=== PATIENT | male | born 1950 | race Caucasian/White ===

== ENCOUNTER 2022-05-23 16:01 | Inpatient (IN) | payer OTHER, MEDICARE ==
[~2022-05-23] VITALS: Ht 365.8 cm; Wt 69.9 kg
[~2022-05-23 16:01] MED LIST: ALBU8.5H17 IH; FLUT1DIS20 INH; LACT1CAP26 PO; TIOT4MIS5 PO
[2022-05-23] MEDS ORDERED: methylPREDNISolone sod succ 125mg/2ml vial IV ONE (16:15)
[2022-05-23 16:28] LABS: BASOPHILS % (AUTO) 0.6 % (0-1); EOSINOPHILS % (AUTO) 0.6 % (0-6); HEMATOCRIT 43.4 % (42.0-52.0); HEMOGLOBIN 14.8 g/dl (14.0-17.9); LYMPHOCYTES # (AUTO) 1.3 X10'3 (1.1-4.8); LYMPHOCYTES % (AUTO) 16.9 % (21-51); MEAN CORPUSCULAR HEMOGLOBIN 30.6 PG (27.0-31.0); MEAN CORPUSCULAR HGB CONC 34.1 g/dL (33.0-36.5); MEAN CORPUSCULAR VOLUME 89.6 FL (78-98); MEAN PLATELET VOLUME 7.2 FL (7.4-10.4); MONOCYTES # (AUTO) 0.7 X10'3 (0-0.9); MONOCYTES % (AUTO) 9.6 % (2-12); NEUTROPHILS # (AUTO) 5.4 X10'3 (1.8-7.7); NEUTROPHILS % (AUTO) 72.3 % (42-75); PLATELET COUNT 253 X10'3 (140-440); RED BLOOD COUNT 4.85 X10'6 (4.70-6.10); RED CELL DISTRIBUTION WIDTH 14.7 % (11.5-14.5); WHITE BLOOD COUNT 7.4 X10'3 (4.5-11.0)
[2022-05-23 16:40] LABS: ALANINE AMINOTRANSFERASE 21 U/L (12-78); ALBUMIN 3.7 G/DL (3.4-5.0); ALBUMIN/GLOBULIN RATIO 0.8 (1.1-1.5); ALKALINE PHOSPHATASE 79 IU/L (46-116); ANION GAP 6 (8-16); ASPARTATE AMINO TRANSFERASE 30 U/L (10-37); BILIRUBIN,TOTAL 0.6 MG/DL (0.1-1.0); BLOOD UREA NITROGEN 10 MG/DL (7-18); BUN/CREATININE RATIO 8.9 (10.0-20.0); CALCIUM 8.9 MG/DL (8.5-10.1); CHLORIDE 100 MMOL/L (99-107); CREATININE 1.12 MG/DL (0.60-1.10); GLUCOSE 113 MG/DL (70-104); POTASSIUM 4.3 MMOL/L (3.5-5.1); SODIUM 133 MMOL/L (135-145); TOTAL CARBON DIOXIDE 26.7 MMOL/L (24-32); TOTAL PROTEIN 8.1 G/DL (6.4-8.2); eGFR 64 ML/MIN
[2022-05-23] MEDS: albuterol 2.5 MG/3 ML nebule CONTNEB PRN ×2 (18:54→19:46)
[2022-05-23] MEDS ORDERED: CefTRIAXone/D5W-Rocephin 1gm 50 ML IV ONE (20:30)
[2022-05-23] MEDS ORDERED: temazepam 15mg capsule PO PRN (21:00)
[2022-05-23] MEDS ORDERED: diphenhydrAMINE 25mg capsule PO PRN (21:10)
[2022-05-23] MEDS ORDERED: morphine 2 MG/ML inj. syringe IV PRN ×2 (21:10)
[2022-05-23] MEDS ORDERED: bisacodyl 10mg suppository rectal RC PRN (21:10)
[2022-05-23] MEDS ORDERED: acetaminophen 325mg tablet PO PRN ×2 (21:10)
[2022-05-23] MEDS ORDERED: ondansetron 4mg rapidly disintigrating tab PO PRN (21:10)
[2022-05-23] MEDS ORDERED: HYDROcodone/acetaminophen 5mg/325mg tablet PO PRN (21:10)
[2022-05-23] MEDS ORDERED: ondansetron/PF 4mg/2ml inj IV PRN (21:10)
[2022-05-23] MEDS ORDERED: HYDROcodone/acetaminophen 10/325mg tab PO PRN (21:10)
[2022-05-23] MEDS ORDERED: magnesium hydroxide 30ml (MOM) UD suspension PO PRN (21:10)
[2022-05-23] MEDS ORDERED: mag hydrox/Alum hydrox/simeth 30ml oral suspension PO PRN (21:10)
[2022-05-23] MEDS ORDERED: acetaminophen 650mg rectal suppository RC PRN (21:10)
[2022-05-23] MEDS ORDERED: diphenhydrAMINE 50 mg/ml inj IV PRN (21:10)
[2022-05-23] MEDS: normal saline 1000ml 1,000 ML IV SCH (21:37)
[2022-05-23 21:38] LABS: HEMOGLOBIN A1C 5.6 % (4.5-6.2)
[2022-05-23 21:41] LABS: CREATINE KINASE 159 U/L (39-308); LIPASE 60 U/L (73-393); MAGNESIUM 2.1 MG/DL (1.5-2.4); PHOSPHORUS 3.1 MG/DL (2.3-4.5)
[2022-05-23 21:55] LABS: APTT 29 SECONDS (22-32)
[2022-05-23 22:33] LABS: D-DIMER 0.61 MG/L FEU (0-0.50)
--- NOTE | 2022-05-23 23:20 | NUR ---
Patient in room [facility]. I have received report from CARRIE Mendez and had the opportunity to ask questions and assume patient care.
--- NOTE | 2022-05-23 23:22 | NUR ---
REPORT CALLED TO RALPH BUTLER TX BY TECH TO RM [id number]
[2022-05-23 23:30] VITALS: BP 105/60
[2022-05-24 06:15] LABS: BASOPHILS % (AUTO) 0.1 % (0-1); EOSINOPHILS % (AUTO) 0 % (0-6); HEMATOCRIT 40.7 % (42.0-52.0); HEMOGLOBIN 13.9 g/dl (14.0-17.9); LYMPHOCYTES # (AUTO) 0.6 X10'3 (1.1-4.8); LYMPHOCYTES % (AUTO) 11.1 % (21-51); MEAN CORPUSCULAR HEMOGLOBIN 30.9 PG (27.0-31.0); MEAN CORPUSCULAR HGB CONC 34.2 g/dL (33.0-36.5); MEAN CORPUSCULAR VOLUME 90.3 FL (78-98); MEAN PLATELET VOLUME 7.4 FL (7.4-10.4); MONOCYTES # (AUTO) 0.1 X10'3 (0-0.9); MONOCYTES % (AUTO) 1.4 % (2-12); NEUTROPHILS % (AUTO) 87.4 % (42-75); PLATELET COUNT 235 X10'3 (140-440); RED BLOOD COUNT 4.51 X10'6 (4.70-6.10); RED CELL DISTRIBUTION WIDTH 14.6 % (11.5-14.5); WHITE BLOOD COUNT 5.7 X10'3 (4.5-11.0)
--- NOTE | 2022-05-24 06:32 | NUR ---
Problems reprioritized. Patient report given, questions answered & plan of care reviewed with Jacque Estrada RN.
[2022-05-24 06:39] LABS: ALANINE AMINOTRANSFERASE 20 U/L (12-78); ALBUMIN 3.2 G/DL (3.4-5.0); ALBUMIN/GLOBULIN RATIO 0.7 (1.1-1.5); ALKALINE PHOSPHATASE 72 IU/L (46-116); ANION GAP 8 (8-16); ASPARTATE AMINO TRANSFERASE 26 U/L (10-37); BILIRUBIN,TOTAL 0.3 MG/DL (0.1-1.0); BLOOD UREA NITROGEN 14 MG/DL (7-18); BUN/CREATININE RATIO 13.3 (10.0-20.0); CHLORIDE 104 MMOL/L (99-107); CHOL/HDL RATIO 2.3 (0.00-4.99); CHOLESTEROL 122 MG/DL (0-200); CREATININE 1.05 MG/DL (0.60-1.10); GLUCOSE 153 MG/DL (70-104); HDL CHOLESTEROL 52 MG/DL (35-60); LDL CHOLESTEROL 58 MG/DL (50-100); POTASSIUM 4.5 MMOL/L (3.5-5.1); SODIUM 138 MMOL/L (135-145); TOTAL PROTEIN 7.5 G/DL (6.4-8.2); TRIGLYCERIDES 37 MG/DL (20-135); eGFR 69 ML/MIN
[2022-05-24] MEDS: docusate sod 100mg capsule PO SCH ×3 (08:00→20:00)
[2022-05-24] MEDS: nicotine 21mg patch - 24 hr TD SCH (09:01)
[2022-05-24] MEDS: pantoprazole 40mg Tablet.DR PO SCH (09:01)
[2022-05-24] MEDS: heparin, porcine 5000 units/ml vial SQ SCH ×2 (09:02→20:05)
[2022-05-24] MEDS: methylPREDNISolone sod succ 125mg/2ml vial IV SCH ×2 (09:03→20:04)
[2022-05-24] MEDS: CefTRIAXone/D5W-Rocephin 1gm 50 ML IV SCH (09:03)
--- NOTE | 2022-05-24 09:20 | NUR ---
page sent to RT : 346B FRANDY E: pt requesting PRN treatment. thanks :) Addendum: 05/24/22 at 0921 by Lori Lux RN Amended: Links added.
[2022-05-24] MEDS: ipratropium/albuterol 3ml nebule NEB PRN ×2 (09:35→20:16)
[2022-05-24] MEDS: azithromycin/NS 500mg/250ml 250 ML IV SCH (10:09)
[2022-05-24 11:49] VITALS: BP 121/65
--- NOTE | 2022-05-24 12:03 | NUR ---
Received order for consult for tobacco. Inappropriate referral. I do not see patients for tobacco use.
[2022-05-24 12:20] VITALS: BP 123/75
[2022-05-24] MEDS: normal saline 1000ml 1,000 ML IV SCH ×2 (12:51→23:50)
--- NOTE | 2022-05-24 16:31 | NUR ---
Page sent to RT: 348B Dennis Cuellar: patient requesting PRN treatment. thank you!
[2022-05-24 18:00] VITALS: BP 113/70
--- NOTE | 2022-05-24 18:07 | NUR ---
Problems reprioritized. Patient report given, questions answered & plan of care reviewed with CRARIE Simon.
--- NOTE | 2022-05-24 18:30 | NUR ---
Patient in room [facility]. I have received report from ARASH BUTLER and had the opportunity to ask questions and assume patient care.
[2022-05-24 22:00] VITALS: BP 121/67
[2022-05-25] MEDS: normal saline 1000ml 1,000 ML IV SCH (05:21)
--- NOTE | 2022-05-25 06:10 | NUR ---
Problems reprioritized. Patient report given, questions answered & plan of care reviewed with MILADIS BUTLER.
--- NOTE | 2022-05-25 06:11 | NUR ---
Patient in room [facility]. I have received report from CARRIE Simon and had the opportunity to ask questions and assume patient care.
--- NOTE | 2022-05-25 06:11 | NUR ---
Patient in room [facility]. I have received report from CARRIE Yusuf and had the opportunity to ask questions and assume patient care.
[2022-05-25 06:23] LABS: BASOPHILS % (AUTO) 0.1 % (0-1); EOSINOPHILS % (AUTO) 0 % (0-6); HEMATOCRIT 38.2 % (42.0-52.0); LYMPHOCYTES # (AUTO) 1.1 X10'3 (1.1-4.8); LYMPHOCYTES % (AUTO) 8.3 % (21-51); MEAN CORPUSCULAR HEMOGLOBIN 30.8 PG (27.0-31.0); MEAN CORPUSCULAR VOLUME 90.4 FL (78-98); MONOCYTES # (AUTO) 0.4 X10'3 (0-0.9); MONOCYTES % (AUTO) 2.9 % (2-12); NEUTROPHILS # (AUTO) 11.3 X10'3 (1.8-7.7); NEUTROPHILS % (AUTO) 88.7 % (42-75); PLATELET COUNT 265 X10'3 (140-440); RED BLOOD COUNT 4.23 X10'6 (4.70-6.10); RED CELL DISTRIBUTION WIDTH 14.8 % (11.5-14.5); WHITE BLOOD COUNT 12.8 X10'3 (4.5-11.0)
[2022-05-25 06:25] LABS: ALANINE AMINOTRANSFERASE 24 U/L (12-78); ALBUMIN/GLOBULIN RATIO 0.7 (1.1-1.5); ALKALINE PHOSPHATASE 68 IU/L (46-116); ANION GAP 7 (8-16); ASPARTATE AMINO TRANSFERASE 35 U/L (10-37); BILIRUBIN,TOTAL 0.3 MG/DL (0.1-1.0); BLOOD UREA NITROGEN 26 MG/DL (7-18); BUN/CREATININE RATIO 24.3 (10.0-20.0); CALCIUM 8.5 MG/DL (8.5-10.1); CHLORIDE 104 MMOL/L (99-107); CREATININE 1.07 MG/DL (0.60-1.10); GLUCOSE 128 MG/DL (70-104); POTASSIUM 4.3 MMOL/L (3.5-5.1); SODIUM 137 MMOL/L (135-145); TOTAL CARBON DIOXIDE 25.7 MMOL/L (24-32); TOTAL PROTEIN 7.1 G/DL (6.4-8.2); eGFR 68 ML/MIN
[2022-05-25 06:48] VITALS: BP 117/68
[2022-05-25] MEDS: methylPREDNISolone sod succ 125mg/2ml vial IV SCH (07:10)
[2022-05-25] MEDS: pantoprazole 40mg Tablet.DR PO SCH (07:14)
[2022-05-25] MEDS: heparin, porcine 5000 units/ml vial SQ SCH (07:16)
[2022-05-25] MEDS: CefTRIAXone/D5W-Rocephin 1gm 50 ML IV SCH (07:16)
[2022-05-25] MEDS: docusate sod 100mg capsule PO SCH (07:27)
[2022-05-25] MEDS: nicotine 21mg patch - 24 hr TD SCH (07:27)
[2022-05-25] MEDS: azithromycin/NS 500mg/250ml 250 ML IV SCH (08:16)
[2022-05-25] MEDS: ipratropium/albuterol 3ml nebule NEB PRN (08:29)
[2022-05-25] MEDS ORDERED: PANT40TA54 PO (11:28)
[2022-05-25] MEDS ORDERED: METH4TAB81 PO (11:28)
[2022-05-25] MEDS ORDERED: AZI25OT PO (11:28)
[2022-05-25] MEDS ORDERED: NICO1PAT36 TOP (11:30)
[2022-05-25 12:17] VITALS: BP 120/65
--- NOTE | 2022-05-25 14:25 | NUR ---
Discussed with patient DC instructions and new prescriptions. Patient verbalizes understanding of teaching and states no questions. Patient ready for dc and waiting for his transportation.
--- NOTE | 2022-05-25 14:30 | NUR ---
Patient states his ride is on the way and would like to wait in lobby. Patient dc'd with all personal belongings. Patient escorted in wheelchair down to lobby by x1 pct.
== END 2022-05-25 14:35 | disposition home health service (06) | DRG 189 ==
LOC: ER 16:02 → ED HOLD 21:12 → EDBEDREQ 22:28 → SUR 3N 23:35
PROVIDERS: ADMIT Family Medicine; ATTEND Internal Medicine
DX: J96.01 Acute respiratory failure with hypoxia (principal); I50.33 Acute on chronic diastolic (congestive) heart failure; J44.1 Chronic obstructive pulmonary disease with (acute) exacerbation; E87.1 Hypo-osmolality and hyponatremia; N17.9 Acute kidney failure, unspecified; Z20.822 Contact with and (suspected) exposure to COVID-19; Z60.2 Problems related to living alone; F17.210 Nicotine dependence, cigarettes, uncomplicated; N18.9 Chronic kidney disease, unspecified; K57.90 Diverticulosis of intestine, part unspecified, without perforation or abscess without bleeding; Z71.6 Tobacco abuse counseling
CPT/HCPCS: 36415; 71045; 80053; 80061; 82550; 83036; 83605; 83690; 83735; 83880; 84100; 84443; 84484; 85025; 85379; 85610; 85730; 87040; 87081; 87811; 93005; 93306; 94640; 94760; 96365; 96375; 97116; 97161; 97530; 99285; A6253; A6258; A6449; A7015; G0378; J0456; J0696; J1644; J2930; J7030

== ENCOUNTER 2023-12-17 12:54 | Inpatient (IN) | payer MEDICARE, OTHER ==
[~2023-12-17] VITALS: Ht 182.9 cm; Wt 95.6 kg
[~2023-12-17 12:54] MED LIST changes: -LACT1CAP26 PO; +METH4TAB81 PO; +NICO1PAT36 TOP; +PANT40TA54 PO
[2023-12-17] MEDS: normal saline 1000ML IV soln IVB ONE (14:53)
[2023-12-17 15:34] LABS: BASOPHILS # (AUTO) 0.1 X10'3 (0-0.2); BASOPHILS % (AUTO) 1.1 % (0-1); EOSINOPHILS # (AUTO) 0.3 X10'3 (0-0.9); EOSINOPHILS % (AUTO) 5.4 % (0-6); HEMATOCRIT 37.1 % (42.0-52.0); HEMOGLOBIN 12.5 g/dl (14.0-17.9); LYMPHOCYTES # (AUTO) 1.6 X10'3 (1.1-4.8); LYMPHOCYTES % (AUTO) 26.7 % (21-51); MEAN CORPUSCULAR HEMOGLOBIN 29.8 PG (27.0-31.0); MEAN CORPUSCULAR HGB CONC 33.7 g/dL (33.0-36.5); MEAN CORPUSCULAR VOLUME 88.4 FL (78-98); MEAN PLATELET VOLUME 7.6 FL (7.4-10.4); MONOCYTES # (AUTO) 0.4 X10'3 (0-0.9); NEUTROPHILS # (AUTO) 3.6 X10'3 (1.8-7.7); NEUTROPHILS % (AUTO) 59.8 % (42-75); PLATELET COUNT 251 X10'3 (140-440); RED CELL DISTRIBUTION WIDTH 14.2 % (11.5-14.5)
[2023-12-17 15:48] LABS: ALANINE AMINOTRANSFERASE 15 U/L (12-78); ALBUMIN 2.9 G/DL (3.4-5.0); ALBUMIN/GLOBULIN RATIO 0.7 (1.1-1.5); ALKALINE PHOSPHATASE 75 IU/L (46-116); ANION GAP 10 (8-16); ASPARTATE AMINO TRANSFERASE 23 U/L (10-37); BILIRUBIN,TOTAL 0.4 MG/DL (0.1-1.0); BLOOD UREA NITROGEN 12 MG/DL (7-18); BUN/CREATININE RATIO 10.6 (10.0-20.0); CALCIUM 8.5 MG/DL (8.5-10.1); CHLORIDE 104 MMOL/L (99-107); CREATININE 1.13 MG/DL (0.60-1.10); GLUCOSE 91 MG/DL (70-104); POTASSIUM 3.6 MMOL/L (3.5-5.1); SODIUM 137 MMOL/L (135-145); TOTAL CARBON DIOXIDE 22.7 MMOL/L (24-32); TOTAL PROTEIN 6.8 G/DL (6.4-8.2); eCRCL 62 ML/MIN; eGFR 63 ML/MIN
[2023-12-17 15:50] LABS: BILIRUBIN,DIRECT 0.1 MG/DL (0-0.3); LIPASE 28 U/L (16-77); PRO BRAIN NATRIURETIC PEPTIDE 554 PG/ML (0-450)
[2023-12-17] MEDS: ringers solution, lacted 1,000 ML IV ONE (16:37)
[2023-12-17] MEDS: methylPREDNISolone sod succ 125mg/2ml vial IV ONE (17:46)
[2023-12-17] MEDS: CefTRIAXone/D5W-Rocephin 1gm 50 ML IV ONE (17:46)
[2023-12-17] MEDS: ipratropium/albuterol 3ml nebule NEB ONE (17:49)
[2023-12-17 17:50] VITALS: PULSE 84; PULSE 93; RESP 22; RESP 24; O2SAT 95
[2023-12-17] MEDS: midazolam 1 mg/ML 2ml injection IV ONE (18:18)
[2023-12-17] MEDS ORDERED: potassium Cl 40MEQ/1/2NS 520ml 520 ML IV PRN (21:15)
[2023-12-17] MEDS ORDERED: magnesium sulf-water 2g/50mL 50 ML IV PRN (21:15)
[2023-12-17] MEDS ORDERED: magnesium sulf-water 4G/100mL 100 ML IV PRN (21:15)
[2023-12-17] MEDS ORDERED: potassium Cl 20 mEq SR tablet PO PRN ×2 (21:15)
[2023-12-17] MEDS ORDERED: magnesium Cl slow-release 64mg tablet PO PRN (21:15)
[2023-12-17] MEDS ORDERED: ondansetron/PF 4mg/2ml inj IV PRN (21:15)
[2023-12-17] MEDS ORDERED: ipratropium/albuterol 3ml nebule NEB PRN (21:25)
[2023-12-17] MEDS ORDERED: albuterol 2.5 MG/3 ML nebule NEB PRN (21:25)
[2023-12-17 21:47] LABS: HEMOGLOBIN A1C 5.4 % (4.5-6.2)
[2023-12-17 22:00] LABS: THYROID STIMULATING HORMONE 0.71 ulU/ml (0.34-4.50)
[2023-12-17 22:11] VITALS: PULSE 87; RESP 20; O2SAT 95
[2023-12-17] MEDS: magnesium hydroxide 30ml (MOM) UD suspension PO SCH (22:38)
[2023-12-18] VITALS (10 sets, daily range): BP systolic 119–130; BP diastolic 63–76; PULSE 70–101; RESP 15–24; TEMP 98–98.4; O2SAT 95–96
[2023-12-18] MEDS: mag hydrox/Alum hydrox/simeth 30ml oral suspension PO PRN (03:02)
[2023-12-18] MEDS: acetaminophen 325mg tablet PO PRN (03:09)
[2023-12-18] MEDS: furosemide 10 MG/1 ML 10ml inj IV ONE (05:16)
[2023-12-18] MEDS: LidoCAINE 2% Topical Jelly 11mL syringe (UROJET) TOP ONE (05:17)
[2023-12-18 05:39] LABS: BILIRUBIN,URINE NEGATIVE (Neg); CLARITY,URINE CLEAR (Clear); COLOR,URINE YELLOW (Yellow); GLUCOSE, URINE NEGATIVE (Neg); KETONES,URINE TRACE mg/dl (Neg); LEUKOCYTE ESTERASE ,URINE NEGATIVE (Neg); NITRITES, URINE NEGATIVE (Neg); OCCULT BLOOD,URINE TRACE-INTACT (Neg); PROTEIN,URINE NEGATIVE (Neg); UROBILINOGEN,URINE 0.2 E.U/dL (0.2-1.0)
[2023-12-18 05:40] LABS: UA COLLECTION TYPE STRAIGHT CATH
[2023-12-18 05:46] LABS: BACTERIA,URINE NONE SEEN /HPF (Neg); MUCUS STRANDS NONE SEEN /LPF (Neg); RBC,URINE 0-2 /HPF (0-2); SQUAMOUS EPITHELIAL CELL,UR NONE SEEN /LPF (FEW); WBC,URINE 0-4 /HPF (0-4)
[2023-12-18 07:52] LABS: BASOPHILS % (AUTO) 0.3 % (0-1); EOSINOPHILS % (AUTO) 0 % (0-6); HEMATOCRIT 39.4 % (42.0-52.0); HEMOGLOBIN 13.3 g/dl (14.0-17.9); LYMPHOCYTES # (AUTO) 0.8 X10'3 (1.1-4.8); LYMPHOCYTES % (AUTO) 14.4 % (21-51); MEAN CORPUSCULAR HEMOGLOBIN 29.8 PG (27.0-31.0); MEAN CORPUSCULAR HGB CONC 33.7 g/dL (33.0-36.5); MEAN CORPUSCULAR VOLUME 88.2 FL (78-98); MEAN PLATELET VOLUME 7.5 FL (7.4-10.4); MONOCYTES # (AUTO) 0.1 X10'3 (0-0.9); MONOCYTES % (AUTO) 2.5 % (2-12); NEUTROPHILS # (AUTO) 4.7 X10'3 (1.8-7.7); NEUTROPHILS % (AUTO) 82.8 % (42-75); PLATELET COUNT 299 X10'3 (140-440); RED BLOOD COUNT 4.47 X10'6 (4.70-6.10); RED CELL DISTRIBUTION WIDTH 14.1 % (11.5-14.5); WHITE BLOOD COUNT 5.7 X10'3 (4.5-11.0)
[2023-12-18] MEDS: CefTRIAXone/D5W-Rocephin 1gm 50 ML IV SCH (07:58)
[2023-12-18] MEDS: methylPREDNISolone sod succ 125mg/2ml vial IV SCH (07:58)
[2023-12-18] MEDS: pantoprazole 40mg Tablet.DR PO SCH (07:59)
[2023-12-18] MEDS: heparin, porcine 5000 units/ml vial SQ SCH (07:59)
[2023-12-18] MEDS: docusate sod 100mg capsule PO SCH (08:00)
[2023-12-18] MEDS: azithromycin 250mg tablet PO SCH (08:00)
[2023-12-18] MEDS: K and/or MAG REPLACEMENT MC SCH (08:00)
[2023-12-18] MEDS: nicotine 21mg patch - 24 hr TD SCH (08:15)
[2023-12-18] MEDS: ipratropium/albuterol 3ml nebule NEB SCH (08:17)
[2023-12-18 08:19] LABS: ALBUMIN 3.2 G/DL (3.4-5.0); ANION GAP 9 (8-16); BLOOD UREA NITROGEN 25 MG/DL (7-18); BUN/CREATININE RATIO 18.9 (10.0-20.0); CALCIUM 8.8 MG/DL (8.5-10.1); CHLORIDE 100 MMOL/L (99-107); CHOLESTEROL 147 MG/DL (0-200); CREATININE 1.32 MG/DL (0.60-1.10); GLUCOSE 127 MG/DL (70-104); HDL CHOLESTEROL 73 MG/DL (35-60); LDL CHOLESTEROL 68 MG/DL (50-100); MAGNESIUM 2.3 MG/DL (1.5-2.4); SODIUM 134 MMOL/L (135-145); TOTAL CARBON DIOXIDE 24.9 MMOL/L (24-32); TRIGLYCERIDES 38 MG/DL (20-135); eCRCL 53 ML/MIN; eGFR 53 ML/MIN
[2023-12-18] MEDS: tamsulosin 0.4mg capsule PO SCH (20:57)
[2023-12-19] VITALS (20 sets, daily range): BP systolic 105–117; BP diastolic 60–67; PULSE 67–97; RESP 16–20; TEMP 96.6–98; O2SAT 89–100
[2023-12-19 05:05] LABS: BASOPHILS % (AUTO) 0 % (0-1); EOSINOPHILS % (AUTO) 0 % (0-6); HEMATOCRIT 33.9 % (42.0-52.0); HEMOGLOBIN 11.6 g/dl (14.0-17.9); LYMPHOCYTES # (AUTO) 0.5 X10'3 (1.1-4.8); LYMPHOCYTES % (AUTO) 4.5 % (21-51); MEAN CORPUSCULAR HGB CONC 34.1 g/dL (33.0-36.5); MEAN CORPUSCULAR VOLUME 87.9 FL (78-98); MEAN PLATELET VOLUME 7.7 FL (7.4-10.4); MONOCYTES # (AUTO) 0.1 X10'3 (0-0.9); MONOCYTES % (AUTO) 1.4 % (2-12); NEUTROPHILS # (AUTO) 9.9 X10'3 (1.8-7.7); NEUTROPHILS % (AUTO) 94.1 % (42-75); PLATELET COUNT 216 X10'3 (140-440); RED BLOOD COUNT 3.85 X10'6 (4.70-6.10); WHITE BLOOD COUNT 10.5 X10'3 (4.5-11.0)
[2023-12-19 05:15] LABS: ALBUMIN 2.7 G/DL (3.4-5.0); ANION GAP 7 (8-16); BLOOD UREA NITROGEN 29 MG/DL (7-18); BUN/CREATININE RATIO 24.6 (10.0-20.0); CALCIUM 8.6 MG/DL (8.5-10.1); CHLORIDE 103 MMOL/L (99-107); CREATININE 1.18 MG/DL (0.60-1.10); GLUCOSE 153 MG/DL (70-104); MAGNESIUM 2.3 MG/DL (1.5-2.4); SODIUM 136 MMOL/L (135-145); TOTAL CARBON DIOXIDE 25.8 MMOL/L (24-32); eCRCL 59 ML/MIN; eGFR 60 ML/MIN
[2023-12-19] MEDS: pantoprazole 40mg Tablet.DR PO SCH (07:30)
[2023-12-19] MEDS: HYDROcodone/acetaminophen 5mg/325mg tablet PO PRN (17:33)
[2023-12-20] VITALS (15 sets, daily range): BP systolic 108–127; BP diastolic 60–85; PULSE 76–98; RESP 16–19; TEMP 97.5–97.9; O2SAT 92–98
[2023-12-20 04:48] LABS: HEMOGLOBIN 11.7 g/dl (14.0-17.9); RED CELL DISTRIBUTION WIDTH 14.1 % (11.5-14.5); WHITE BLOOD COUNT 8.7 X10'3 (4.5-11.0)
[2023-12-20 04:50] LABS: BASOPHILS % (AUTO) 0 % (0-1); EOSINOPHILS % (AUTO) 0 % (0-6); HEMATOCRIT 33.1 % (42.0-52.0); LYMPHOCYTES # (AUTO) 0.5 X10'3 (1.1-4.8); LYMPHOCYTES % (AUTO) 5.5 % (21-51); MEAN CORPUSCULAR HEMOGLOBIN 31.3 PG (27.0-31.0); MEAN CORPUSCULAR HGB CONC 35.3 g/dL (33.0-36.5); MEAN CORPUSCULAR VOLUME 88.6 FL (78-98); MEAN PLATELET VOLUME 7.7 FL (7.4-10.4); MONOCYTES # (AUTO) 0.2 X10'3 (0-0.9); MONOCYTES % (AUTO) 2.4 % (2-12); NEUTROPHILS % (AUTO) 92.1 % (42-75); PLATELET COUNT 215 X10'3 (140-440); RED BLOOD COUNT 3.74 X10'6 (4.70-6.10)
[2023-12-20 04:58] LABS: ALBUMIN 2.6 G/DL (3.4-5.0); ANION GAP 4 (8-16); BLOOD UREA NITROGEN 29 MG/DL (7-18); BUN/CREATININE RATIO 24.8 (10.0-20.0); CALCIUM 8.4 MG/DL (8.5-10.1); CHLORIDE 103 MMOL/L (99-107); CREATININE 1.17 MG/DL (0.60-1.10); GLUCOSE 139 MG/DL (70-104); MAGNESIUM 2.3 MG/DL (1.5-2.4); POTASSIUM 4.4 MMOL/L (3.5-5.1); SODIUM 135 MMOL/L (135-145); eCRCL 60 ML/MIN; eGFR 61 ML/MIN
[2023-12-21] VITALS (18 sets, daily range): BP systolic 106–131; BP diastolic 52–66; PULSE 66–104; RESP 12–22; TEMP 97.5–98.8; O2SAT 91–98
[2023-12-21 05:02] LABS: BASOPHILS % (AUTO) 0.1 % (0-1); EOSINOPHILS % (AUTO) 0 % (0-6); HEMATOCRIT 34.4 % (42.0-52.0); HEMOGLOBIN 11.6 g/dl (14.0-17.9); LYMPHOCYTES # (AUTO) 0.6 X10'3 (1.1-4.8); LYMPHOCYTES % (AUTO) 9.1 % (21-51); MEAN CORPUSCULAR HEMOGLOBIN 29.9 PG (27.0-31.0); MEAN CORPUSCULAR HGB CONC 33.6 g/dL (33.0-36.5); MEAN PLATELET VOLUME 7.7 FL (7.4-10.4); MONOCYTES # (AUTO) 0.2 X10'3 (0-0.9); MONOCYTES % (AUTO) 3.3 % (2-12); NEUTROPHILS # (AUTO) 6.2 X10'3 (1.8-7.7); NEUTROPHILS % (AUTO) 87.5 % (42-75); PLATELET COUNT 216 X10'3 (140-440); RED BLOOD COUNT 3.87 X10'6 (4.70-6.10); RED CELL DISTRIBUTION WIDTH 14.2 % (11.5-14.5); WHITE BLOOD COUNT 7.1 X10'3 (4.5-11.0)
[2023-12-21 05:12] LABS: ALBUMIN 2.7 G/DL (3.4-5.0); ANION GAP 4 (8-16); BLOOD UREA NITROGEN 31 MG/DL (7-18); BUN/CREATININE RATIO 25.8 (10.0-20.0); CALCIUM 8.4 MG/DL (8.5-10.1); CHLORIDE 101 MMOL/L (99-107); GLUCOSE 130 MG/DL (70-104); MAGNESIUM 2.4 MG/DL (1.5-2.4); POTASSIUM 5.1 MMOL/L (3.5-5.1); SODIUM 134 MMOL/L (135-145); TOTAL CARBON DIOXIDE 28.8 MMOL/L (24-32); eCRCL 58 ML/MIN; eGFR 59 ML/MIN
[2023-12-22] VITALS (15 sets, daily range): BP systolic 96–132; BP diastolic 59–75; PULSE 63–97; RESP 16–26; TEMP 97.3–98.5; O2SAT 78–99
[2023-12-22 06:11] LABS: ALBUMIN 2.7 G/DL (3.4-5.0); ANION GAP 4 (8-16); BLOOD UREA NITROGEN 31 MG/DL (7-18); BUN/CREATININE RATIO 25.4 (10.0-20.0); CALCIUM 8.4 MG/DL (8.5-10.1); CHLORIDE 101 MMOL/L (99-107); CREATININE 1.22 MG/DL (0.60-1.10); GLUCOSE 125 MG/DL (70-104); SODIUM 133 MMOL/L (135-145); TOTAL CARBON DIOXIDE 27.9 MMOL/L (24-32); eCRCL 57 ML/MIN; eGFR 58 ML/MIN
[2023-12-22 06:14] LABS: BASOPHILS % (AUTO) 0.1 % (0-1); EOSINOPHILS % (AUTO) 0 % (0-6); HEMATOCRIT 34.8 % (42.0-52.0); HEMOGLOBIN 11.8 g/dl (14.0-17.9); LYMPHOCYTES # (AUTO) 0.8 X10'3 (1.1-4.8); LYMPHOCYTES % (AUTO) 12.9 % (21-51); MEAN CORPUSCULAR HEMOGLOBIN 30.1 PG (27.0-31.0); MEAN CORPUSCULAR HGB CONC 33.9 g/dL (33.0-36.5); MEAN CORPUSCULAR VOLUME 88.8 FL (78-98); MEAN PLATELET VOLUME 7.9 FL (7.4-10.4); MONOCYTES # (AUTO) 0.2 X10'3 (0-0.9); MONOCYTES % (AUTO) 3.7 % (2-12); NEUTROPHILS # (AUTO) 5.4 X10'3 (1.8-7.7); NEUTROPHILS % (AUTO) 83.3 % (42-75); PLATELET COUNT 214 X10'3 (140-440); RED BLOOD COUNT 3.92 X10'6 (4.70-6.10); RED CELL DISTRIBUTION WIDTH 14.1 % (11.5-14.5); WHITE BLOOD COUNT 6.4 X10'3 (4.5-11.0)
[2023-12-22 09:15] LABS: C-REACTIVE PROTEIN 0.05 MG/DL (0.0-0.5); CREATINE KINASE 106 U/L (39-308)
[2023-12-22] MEDS: normal saline 500ml IV soln 500 ML IV ONE (11:30)
[2023-12-23] VITALS (16 sets, daily range): BP systolic 96–136; BP diastolic 52–75; PULSE 63–87; RESP 16–22; TEMP 97.5–98.1; O2SAT 90–96
[2023-12-23] MEDS: magnesium hydroxide 30ml (MOM) UD suspension PO PRN (14:50)
[2023-12-24] VITALS (30 sets, daily range): BP systolic 95–118; BP diastolic 47–76; PULSE 61–84; RESP 14–22; TEMP 96.9–97.7; O2SAT 87–96
[2023-12-24] MEDS: ceFAZolin 2gm in dextrose, iso 50 ML IV ONE (04:18)
[2023-12-24 08:32] LABS: BASOPHILS % (AUTO) 0.1 % (0-1); EOSINOPHILS % (AUTO) 0 % (0-6); HEMATOCRIT 40.8 % (42.0-52.0); HEMOGLOBIN 13.5 g/dl (14.0-17.9); LYMPHOCYTES # (AUTO) 1.1 X10'3 (1.1-4.8); LYMPHOCYTES % (AUTO) 12.9 % (21-51); MEAN CORPUSCULAR HEMOGLOBIN 29.7 PG (27.0-31.0); MEAN CORPUSCULAR HGB CONC 33.1 g/dL (33.0-36.5); MEAN CORPUSCULAR VOLUME 89.7 FL (78-98); MEAN PLATELET VOLUME 7.5 FL (7.4-10.4); MONOCYTES # (AUTO) 0.3 X10'3 (0-0.9); MONOCYTES % (AUTO) 3.8 % (2-12); NEUTROPHILS % (AUTO) 83.2 % (42-75); PLATELET COUNT 263 X10'3 (140-440); RED BLOOD COUNT 4.54 X10'6 (4.70-6.10); RED CELL DISTRIBUTION WIDTH 14.4 % (11.5-14.5); WHITE BLOOD COUNT 8.4 X10'3 (4.5-11.0)
[2023-12-24 08:36] LABS: APTT 21 SECONDS (22-32); PROTHROMBIN TIME 10.3 SECONDS (9.0-12.0)
[2023-12-24 08:44] LABS: ALANINE AMINOTRANSFERASE 39 U/L (12-78); ALBUMIN 2.9 G/DL (3.4-5.0); ALBUMIN/GLOBULIN RATIO 0.8 (1.1-1.5); ALKALINE PHOSPHATASE 53 IU/L (46-116); ANION GAP 9 (8-16); ASPARTATE AMINO TRANSFERASE 21 U/L (10-37); BILIRUBIN,TOTAL 0.3 MG/DL (0.1-1.0); BLOOD UREA NITROGEN 33 MG/DL (7-18); BUN/CREATININE RATIO 27.7 (10.0-20.0); CALCIUM 8.5 MG/DL (8.5-10.1); CHLORIDE 100 MMOL/L (99-107); CREATININE 1.19 MG/DL (0.60-1.10); GLUCOSE 121 MG/DL (70-104); POTASSIUM 4.8 MMOL/L (3.5-5.1); SODIUM 136 MMOL/L (135-145); TOTAL CARBON DIOXIDE 27.2 MMOL/L (24-32); TOTAL PROTEIN 6.7 G/DL (6.4-8.2); eCRCL 59 ML/MIN; eGFR 60 ML/MIN
[2023-12-24] MEDS: albuterol 2.5 MG/3 ML nebule NEB ONE ×2 (09:20→17:22)
[2023-12-24] MEDS ORDERED: GADOTERATE MEGLUMINE 7.5 MMOL/15 ML VIAL IV ONE (09:47)
[2023-12-24] MEDS ORDERED: etomidate 2mg/ml inj. ONE (11:43)
[2023-12-24] MEDS ORDERED: fentaNYL/PF 50MCG/1 ML 2ML syringe ONE (11:43)
[2023-12-24] MEDS ORDERED: midazolam 1 mg/ML 2ml injection ONE (11:44)
[2023-12-24] MEDS ORDERED: fentaNYL /PF 50mcg/ml 5ml ampule ONE (11:45)
[2023-12-24] MEDS: ringers solution, lacted 1,000 ML IV ONE (11:45)
[2023-12-24] MEDS ORDERED: rocuronium 10mg/ml inj IV ONE (11:47)
[2023-12-24] MEDS ORDERED: propofol inj 20 ML IV ONE (11:49)
[2023-12-24] MEDS ORDERED: LIDOcaine 2% (20mg/ml) 5ml vial ONE (11:49)
[2023-12-24 12:09] LABS: ABG BASE EXCESS 1.5 mmol/L (-2.0-3.0); ABG HCO3 23.4 mmol/L (21.0-28.0); ABG OXYGEN SATURATION 92.4 % (94.0-98.0); ABG PCO2 (T) 29.5 mmHg (35.0-48.0); ABG PH (T) 7.518 (7.350-7.450); ABG PO2 (T) 58.7 mmHg (83.0-108.0); ALLEN'S TEST POSITIVE; FCOHb 0.4 % (0.5-1.5); FHHb 7.5 % (0.0-5.0); FLOW 3 L/min; FMetHb 0.3 % (0.0-1.5); FO2Hb 91.8 % (94.0-98.0); MODE NASAL CANNULA
[2023-12-24] MEDS: ringers solution, lacted 1,000 ML IV SCH (12:15)
[2023-12-24] MEDS ORDERED: fentaNYL/PF 50MCG/1 ML 2ML syringe IV PRN (12:15)
[2023-12-24] MEDS ORDERED: morphine 2 MG/ML inj. syringe IV PRN (12:15)
[2023-12-24] MEDS ORDERED: hydrALAZINE 20mg/ml inj. IV PRN (12:15)
[2023-12-24] MEDS ORDERED: labetalol 20mg/4ml (5mg/ml) syringe IV PRN (12:15)
[2023-12-24] MEDS ORDERED: ondansetron/PF 4mg/2ml inj IV PRN (12:15)
[2023-12-24] MEDS ORDERED: sevoflurane 250ml liquid IH ONE (12:34)
[2023-12-24] MEDS ORDERED: ceFAZolin 1000mg inj ONE (13:10)
[2023-12-24] MEDS ORDERED: ondansetron/PF 4mg/2ml inj ONE (13:15)
[2023-12-24] MEDS ORDERED: dexamethasone sod phosphate 4mg/ml inj. ONE (13:15)
[2023-12-24] MEDS ORDERED: acetaminophen 1,000mg/100ml IV 100 ML IV ONE (13:20)
[2023-12-24] MEDS ORDERED: labetalol 20mg/4ml (5mg/ml) syringe IV ONE (13:58)
[2023-12-24] MEDS ORDERED: hydrALAZINE 20mg/ml inj. ONE (14:02)
[2023-12-24] MEDS ORDERED: ePHEDrine 50MG/ML INJ. ONE (14:18)
[2023-12-24] MEDS: Thrombin (Bovine) 5,000 unit vial TP ONE (14:51)
[2023-12-24] MEDS ORDERED: HYDROmorphone/PF 0.2 MG/ML SYRINGE IV PRN (17:00)
[2023-12-24] MEDS: morphine 4 MG/ML inj SYRINge IV PRN (17:02)
[2023-12-24] MEDS: fentaNYL/PF 50MCG/1 ML 2ML syringe IV PRN (17:17)
[2023-12-24] MEDS ORDERED: HYDROmorphone inj. 0.5 MG/0.5 ML DISP.SYRIN IV PRN (18:15)
[2023-12-24] MEDS: HYDROmorphone 1 mg/ml syringe IV PRN (20:17)
[2023-12-25] VITALS (21 sets, daily range): BP systolic 100–131; BP diastolic 50–75; PULSE 62–88; RESP 12–21; TEMP 97–98.1; O2SAT 90–98
[2023-12-25 05:07] LABS: BASOPHILS % (AUTO) 0 % (0-1); EOSINOPHILS % (AUTO) 0 % (0-6); HEMATOCRIT 39.3 % (42.0-52.0); HEMOGLOBIN 12.7 g/dl (14.0-17.9); LYMPHOCYTES # (AUTO) 0.8 X10'3 (1.1-4.8); LYMPHOCYTES % (AUTO) 6.4 % (21-51); MEAN CORPUSCULAR HEMOGLOBIN 29.4 PG (27.0-31.0); MEAN CORPUSCULAR HGB CONC 32.4 g/dL (33.0-36.5); MEAN CORPUSCULAR VOLUME 90.7 FL (78-98); MEAN PLATELET VOLUME 7.5 FL (7.4-10.4); MONOCYTES # (AUTO) 0.8 X10'3 (0-0.9); MONOCYTES % (AUTO) 6.3 % (2-12); NEUTROPHILS # (AUTO) 10.5 X10'3 (1.8-7.7); NEUTROPHILS % (AUTO) 87.3 % (42-75); PLATELET COUNT 239 X10'3 (140-440); RED BLOOD COUNT 4.33 X10'6 (4.70-6.10); RED CELL DISTRIBUTION WIDTH 14.6 % (11.5-14.5)
[2023-12-25 05:16] LABS: ANION GAP 5 (8-16); CHLORIDE 101 MMOL/L (99-107); POTASSIUM 5.1 MMOL/L (3.5-5.1); SODIUM 133 MMOL/L (135-145); TOTAL CARBON DIOXIDE 27.5 MMOL/L (24-32)
[2023-12-25] MEDS: famotidine 20mg tablet PO ONE (08:27)
[2023-12-25] MEDS: Thrombin (Bovine) 5,000 unit vial TP ONE (23:38)
[2023-12-25] MEDS: LIDOcaine 1% (10mg/ml) 2ml vial ONE (23:38)
[2023-12-26] VITALS (11 sets, daily range): BP systolic 98–102; BP diastolic 45–59; PULSE 62–83; RESP 12–19; TEMP 96.8–98.1; O2SAT 91–95
[2023-12-26 10:59] LABS: BASOPHILS % (AUTO) 0.2 % (0-1); EOSINOPHILS % (AUTO) 0 % (0-6); HEMATOCRIT 36.7 % (42.0-52.0); HEMOGLOBIN 12.4 g/dl (14.0-17.9); LYMPHOCYTES # (AUTO) 0.4 X10'3 (1.1-4.8); LYMPHOCYTES % (AUTO) 4.7 % (21-51); MEAN CORPUSCULAR HEMOGLOBIN 30.1 PG (27.0-31.0); MEAN CORPUSCULAR HGB CONC 33.7 g/dL (33.0-36.5); MEAN CORPUSCULAR VOLUME 89.3 FL (78-98); MEAN PLATELET VOLUME 7.3 FL (7.4-10.4); MONOCYTES # (AUTO) 0.2 X10'3 (0-0.9); MONOCYTES % (AUTO) 2.6 % (2-12); NEUTROPHILS # (AUTO) 7.3 X10'3 (1.8-7.7); NEUTROPHILS % (AUTO) 92.5 % (42-75); PLATELET COUNT 212 X10'3 (140-440); RED BLOOD COUNT 4.11 X10'6 (4.70-6.10); RED CELL DISTRIBUTION WIDTH 14.5 % (11.5-14.5); WHITE BLOOD COUNT 7.9 X10'3 (4.5-11.0)
[2023-12-26 11:36] LABS: ALANINE AMINOTRANSFERASE 28 U/L (12-78); ALBUMIN 2.6 G/DL (3.4-5.0); ALBUMIN/GLOBULIN RATIO 0.8 (1.1-1.5); ALKALINE PHOSPHATASE 47 IU/L (46-116); ANION GAP 7 (8-16); ASPARTATE AMINO TRANSFERASE 33 U/L (10-37); BILIRUBIN,TOTAL 0.5 MG/DL (0.1-1.0); BLOOD UREA NITROGEN 36 MG/DL (7-18); BUN/CREATININE RATIO 31.9 (10.0-20.0); CHLORIDE 98 MMOL/L (99-107); CREATININE 1.13 MG/DL (0.60-1.10); GLUCOSE 168 MG/DL (70-104); POTASSIUM 4.4 MMOL/L (3.5-5.1); SODIUM 129 MMOL/L (135-145); TOTAL CARBON DIOXIDE 24.1 MMOL/L (24-32); TOTAL PROTEIN 5.9 G/DL (6.4-8.2); eCRCL 62 ML/MIN; eGFR 63 ML/MIN
== END 2023-12-26 15:00 | DRG 471 ==
LOC: ER 12:54 → ED HOLD 21:21 → EDBEDREQ 12-18 09:25 → S STAY 12-18 12:38 → SUR 3N 12-18 19:15
PROVIDERS: ADMIT Internal Medicine Pulmonary Disease; ATTEND Family Medicine
PROC: 00NW0ZZ Release Cervical Spinal Cord, Open Approach (ICD-10-PCS; 2023-12-24)
PROC: 0RG20A0 Fusion of 2 or more Cervical Vertebral Joints with Interbody Fusion Device, Anterior Approach, Anterior Column, Open Approach (ICD-10-PCS; principal; 2023-12-24 12:34)
DX: M48.02 Spinal stenosis, cervical region (principal); J96.01 Acute respiratory failure with hypoxia; N17.0 Acute kidney failure with tubular necrosis; M47.12 Other spondylosis with myelopathy, cervical region; J44.1 Chronic obstructive pulmonary disease with (acute) exacerbation; E46 Unspecified protein-calorie malnutrition; C79.51 Secondary malignant neoplasm of bone; R33.8 Other retention of urine; Z60.2 Problems related to living alone; M47.22 Other spondylosis with radiculopathy, cervical region; J43.9 Emphysema, unspecified; C61 Malignant neoplasm of prostate; I27.81 Cor pulmonale (chronic); K59.09 Other constipation; K44.9 Diaphragmatic hernia without obstruction or gangrene; Z79.899 Other long term (current) drug therapy; Z87.891 Personal history of nicotine dependence; Z68.28 Body mass index [BMI] 28.0-28.9, adult; I25.10 Atherosclerotic heart disease of native coronary artery without angina pectoris
CPT/HCPCS: 36415; 36600; 71045; 71250; 72040; 72114; 72125; 72141; 72142; 76000; 80048; 80051; 80053; 80061; 80076; 81001; 82550; 82803; 82948; 83036; 83605; 83690; 83735; 83880; 84145; 84443; 84484; 85018; 85025; 85610; 85651; 85730; 86140; 86885; 86900; 86901; 87081; 93005; 93306; 94060; 94640; 94760; 96365; 96375; 97116; 97161; 97164; 97530; 99285; A4215; A4355; A4615; A4618; A7000; A9575; C1713; C1758; C1889; G0378; J0131; J0360; J0690; J0696; J1100; J1171; J1644; J1940; J2250; J2270; J2405; J2704; J2919; J3010; J3490; J7030; J7050; J7120

== ENCOUNTER 2024-01-05 01:04 | Inpatient (IN) | payer OTHER, MEDICARE ==
[2024-01-05] VITALS (10 sets, daily range): BP systolic 124–136; BP diastolic 59–83; PULSE 69–91; RESP 9–22; TEMP 97.2–97.6; O2SAT 93–95
[~2024-01-05] VITALS: Ht 182.9 cm; Wt 86.0 kg
[2024-01-05 01:54] LABS: BASOPHILS % (AUTO) 0.5 % (0-1); EOSINOPHILS # (AUTO) 0.2 X10'3 (0-0.9); HEMATOCRIT 31.6 % (42.0-52.0); HEMOGLOBIN 10.6 g/dl (14.0-17.9); LYMPHOCYTES # (AUTO) 0.8 X10'3 (1.1-4.8); LYMPHOCYTES % (AUTO) 23.7 % (21-51); MEAN CORPUSCULAR HEMOGLOBIN 29.7 PG (27.0-31.0); MEAN CORPUSCULAR HGB CONC 33.6 g/dL (33.0-36.5); MEAN CORPUSCULAR VOLUME 88.2 FL (78-98); MEAN PLATELET VOLUME 6.7 FL (7.4-10.4); MONOCYTES # (AUTO) 0.3 X10'3 (0-0.9); MONOCYTES % (AUTO) 9.4 % (2-12); NEUTROPHILS # (AUTO) 1.9 X10'3 (1.8-7.7); NEUTROPHILS % (AUTO) 59.4 % (42-75); PLATELET COUNT 183 X10'3 (140-440); RED BLOOD COUNT 3.59 X10'6 (4.70-6.10); RED CELL DISTRIBUTION WIDTH 14.6 % (11.5-14.5); WHITE BLOOD COUNT 3.2 X10'3 (4.5-11.0)
[2024-01-05 02:12] LABS: ALBUMIN 2.3 G/DL (3.4-5.0); ANION GAP 7 (8-16); BLOOD UREA NITROGEN 13 MG/DL (7-18); BUN/CREATININE RATIO 12.9 (10.0-20.0); CALCIUM 8.2 MG/DL (8.5-10.1); CHLORIDE 104 MMOL/L (99-107); CREATININE 1.01 MG/DL (0.60-1.10); GLUCOSE 108 MG/DL (70-104); POTASSIUM 3.9 MMOL/L (3.5-5.1); SODIUM 135 MMOL/L (135-145); TOTAL CARBON DIOXIDE 24.3 MMOL/L (24-32); eCRCL 69 ML/MIN; eGFR 72 ML/MIN
[2024-01-05] MEDS: ipratropium/albuterol 3ml nebule NEB ONE (02:34)
[2024-01-05] MEDS: DOXYCYCLINE 100MG CAPSULE PO STA (03:47)
[2024-01-05] MEDS: dexamethasone sod phosphate 10mg/ml inj IV STA (03:48)
[2024-01-05] MEDS ORDERED: potassium Cl 40MEQ/1/2NS 520ml 520 ML IV PRN (04:45)
[2024-01-05] MEDS ORDERED: magnesium sulf-water 2g/50mL 50 ML IV PRN (04:45)
[2024-01-05] MEDS ORDERED: magnesium Cl slow-release 64mg tablet PO PRN (04:45)
[2024-01-05] MEDS ORDERED: morphine 2 MG/ML inj. syringe IV PRN (04:45)
[2024-01-05] MEDS ORDERED: potassium Cl 20 mEq SR tablet PO PRN ×2 (04:45)
[2024-01-05] MEDS ORDERED: ondansetron/PF 4mg/2ml inj IV PRN (04:45)
[2024-01-05] MEDS ORDERED: magnesium sulf-water 4G/100mL 100 ML IV PRN (04:45)
[2024-01-05] MEDS ORDERED: ipratropium/albuterol 3ml nebule NEB PRN (05:20)
[2024-01-05 05:33] LABS: PRO BRAIN NATRIURETIC PEPTIDE 509 PG/ML (0-450)
[2024-01-05] MEDS ORDERED: albuterol 2.5 MG/3 ML nebule NEB PRN (05:55)
[2024-01-05] MEDS: methylPREDNISolone sod succ 125mg/2ml vial IV ONE (05:56)
[2024-01-05] MEDS: furosemide 10 MG/1 ML 10ml inj IV ONE (05:59)
[2024-01-05] MEDS: docusate sod 100mg capsule PO SCH (07:30)
[2024-01-05] MEDS: heparin, porcine 5000 units/ml vial SQ SCH (07:32)
[2024-01-05] MEDS: K and/or MAG REPLACEMENT MC SCH (08:00)
[2024-01-05] MEDS: ipratropium/albuterol 3ml nebule NEB SCH (09:00)
[2024-01-05] MEDS: methylPREDNISolone sod succ/PF 40mg inj. IV SCH (19:51)
[2024-01-05] MEDS: guanFACINE 1 mg tablet PO SCH (21:32)
[2024-01-06] VITALS (11 sets, daily range): BP systolic 109–122; BP diastolic 51–64; PULSE 69–92; RESP 16–22; TEMP 97.4–98.1; O2SAT 93–96
[2024-01-06] MEDS: NIRMATRELVIR/RITONAVIR 300/100mg - 1 EACH TAB.DS.PK PO SCH (04:03)
[2024-01-06 06:39] LABS: ALBUMIN 2.2 G/DL (3.4-5.0); ANION GAP 6 (8-16); BLOOD UREA NITROGEN 19 MG/DL (7-18); BUN/CREATININE RATIO 18.8 (10.0-20.0); CALCIUM 8.4 MG/DL (8.5-10.1); CHLORIDE 106 MMOL/L (99-107); CREATININE 1.01 MG/DL (0.60-1.10); GLUCOSE 146 MG/DL (70-104); POTASSIUM 4.1 MMOL/L (3.5-5.1); SODIUM 139 MMOL/L (135-145); TOTAL CARBON DIOXIDE 27.3 MMOL/L (24-32); eCRCL 69 ML/MIN; eGFR 72 ML/MIN
[2024-01-06 06:41] LABS: BASOPHILS % (AUTO) 0.2 % (0-1); EOSINOPHILS % (AUTO) 0 % (0-6); HEMATOCRIT 30.6 % (42.0-52.0); HEMOGLOBIN 10.9 g/dl (14.0-17.9); LYMPHOCYTES # (AUTO) 0.4 X10'3 (1.1-4.8); LYMPHOCYTES % (AUTO) 7.9 % (21-51); MEAN CORPUSCULAR HEMOGLOBIN 31.3 PG (27.0-31.0); MEAN CORPUSCULAR HGB CONC 35.6 g/dL (33.0-36.5); MEAN CORPUSCULAR VOLUME 87.9 FL (78-98); MONOCYTES # (AUTO) 0.2 X10'3 (0-0.9); NEUTROPHILS # (AUTO) 4.7 X10'3 (1.8-7.7); NEUTROPHILS % (AUTO) 88.9 % (42-75); PLATELET COUNT 200 X10'3 (140-440); RED BLOOD COUNT 3.48 X10'6 (4.70-6.10); RED CELL DISTRIBUTION WIDTH 14.4 % (11.5-14.5); WHITE BLOOD COUNT 5.3 X10'3 (4.5-11.0)
[2024-01-06] MEDS: albuterol 60 PUFF/8GM Inhaler (90mcg/1 puff) IH PRN (08:01)
[2024-01-06] MEDS: VANCOMYCIN 1GM 200ML H20 (PEG) 200 ML IV SCH (15:00)
[2024-01-06] MEDS ORDERED: vancomycin/NS 1 GM ADD-VANTAGE 250 ML IV SCH (15:00)
[2024-01-06] MEDS: CEFEPIME 2gm in D5W 50mL 50 ML IV SCH (16:50)
[2024-01-06] MEDS: guaiFENesin ER 600mg tablet PO SCH (19:08)
[2024-01-06] MEDS: HYDROcodone/acetaminophen 5mg/325mg tablet PO PRN (23:02)
[2024-01-07] VITALS (11 sets, daily range): BP systolic 103–118; BP diastolic 50–76; PULSE 50–68; RESP 18–24; TEMP 96.7–98; O2SAT 93–97
[2024-01-07 06:37] LABS: BASOPHILS % (AUTO) 0 % (0-1); EOSINOPHILS % (AUTO) 0 % (0-6); HEMATOCRIT 30.8 % (42.0-52.0); HEMOGLOBIN 10.6 g/dl (14.0-17.9); LYMPHOCYTES # (AUTO) 0.5 X10'3 (1.1-4.8); LYMPHOCYTES % (AUTO) 6.7 % (21-51); MEAN CORPUSCULAR HEMOGLOBIN 30.5 PG (27.0-31.0); MEAN CORPUSCULAR HGB CONC 34.4 g/dL (33.0-36.5); MEAN CORPUSCULAR VOLUME 88.5 FL (78-98); MEAN PLATELET VOLUME 7.2 FL (7.4-10.4); MONOCYTES # (AUTO) 0.1 X10'3 (0-0.9); MONOCYTES % (AUTO) 1.3 % (2-12); NEUTROPHILS # (AUTO) 6.8 X10'3 (1.8-7.7); PLATELET COUNT 218 X10'3 (140-440); RED BLOOD COUNT 3.47 X10'6 (4.70-6.10); RED CELL DISTRIBUTION WIDTH 14.2 % (11.5-14.5); WHITE BLOOD COUNT 7.4 X10'3 (4.5-11.0)
[2024-01-07 06:50] LABS: ALBUMIN 2.3 G/DL (3.4-5.0); ANION GAP 5 (8-16); BLOOD UREA NITROGEN 25 MG/DL (7-18); BUN/CREATININE RATIO 22.9 (10.0-20.0); CALCIUM 8.2 MG/DL (8.5-10.1); CHLORIDE 105 MMOL/L (99-107); CREATININE 1.09 MG/DL (0.60-1.10); GLUCOSE 146 MG/DL (70-104); POTASSIUM 4.7 MMOL/L (3.5-5.1); SODIUM 137 MMOL/L (135-145); eCRCL 64 ML/MIN; eGFR 66 ML/MIN
[2024-01-08] VITALS (13 sets, daily range): BP systolic 92–115; BP diastolic 49–76; PULSE 51–82; RESP 19–28; TEMP 97.9–98.9; O2SAT 3–99
[2024-01-08] MEDS: VANCOMYCIN LEVEL IV ONE (02:30)
[2024-01-08 03:43] LABS: BASOPHILS % (AUTO) 0.1 % (0-1); EOSINOPHILS % (AUTO) 0 % (0-6); HEMATOCRIT 31.8 % (42.0-52.0); HEMOGLOBIN 10.9 g/dl (14.0-17.9); LYMPHOCYTES # (AUTO) 0.5 X10'3 (1.1-4.8); LYMPHOCYTES % (AUTO) 6.9 % (21-51); MEAN CORPUSCULAR HEMOGLOBIN 30.5 PG (27.0-31.0); MEAN CORPUSCULAR HGB CONC 34.3 g/dL (33.0-36.5); MEAN CORPUSCULAR VOLUME 88.9 FL (78-98); MEAN PLATELET VOLUME 7.5 FL (7.4-10.4); MONOCYTES # (AUTO) 0.1 X10'3 (0-0.9); NEUTROPHILS # (AUTO) 6.3 X10'3 (1.8-7.7); PLATELET COUNT 230 X10'3 (140-440); RED BLOOD COUNT 3.58 X10'6 (4.70-6.10); RED CELL DISTRIBUTION WIDTH 14.6 % (11.5-14.5); WHITE BLOOD COUNT 6.8 X10'3 (4.5-11.0)
[2024-01-08 03:58] LABS: ALBUMIN 2.4 G/DL (3.4-5.0); ANION GAP 8 (8-16); BLOOD UREA NITROGEN 28 MG/DL (7-18); CALCIUM 8.4 MG/DL (8.5-10.1); CHLORIDE 107 MMOL/L (99-107); CREATININE 1.27 MG/DL (0.60-1.10); GLUCOSE 134 MG/DL (70-104); POTASSIUM 4.6 MMOL/L (3.5-5.1); SODIUM 141 MMOL/L (135-145); VANCOMYCIN,TROUGH 16.5 ug/mL (10.0-20.0); eCRCL 55 ML/MIN; eGFR 55 ML/MIN
[2024-01-08] MEDS: mag hydrox/Alum hydrox/simeth 30ml oral suspension PO PRN (15:23)
[2024-01-08] MEDS: polyethylene glycol 3350 17gm powd pack PO SCH (20:05)
[2024-01-08] MEDS: enoxaparin 40mg/0.4ml syringe SUBCUT SCH (20:05)
[2024-01-09] VITALS (8 sets, daily range): BP systolic 110–130; BP diastolic 59–74; PULSE 58–80; RESP 18–23; TEMP 97.7–98.9; O2SAT 90–95
[2024-01-09 06:13] LABS: BASOPHILS % (AUTO) 0 % (0-1); EOSINOPHILS % (AUTO) 0.1 % (0-6); HEMATOCRIT 32.1 % (42.0-52.0); HEMOGLOBIN 11.1 g/dl (14.0-17.9); LYMPHOCYTES # (AUTO) 0.5 X10'3 (1.1-4.8); LYMPHOCYTES % (AUTO) 7.3 % (21-51); MEAN CORPUSCULAR HEMOGLOBIN 30.6 PG (27.0-31.0); MEAN CORPUSCULAR HGB CONC 34.5 g/dL (33.0-36.5); MEAN CORPUSCULAR VOLUME 88.6 FL (78-98); MEAN PLATELET VOLUME 7.2 FL (7.4-10.4); MONOCYTES # (AUTO) 0.1 X10'3 (0-0.9); MONOCYTES % (AUTO) 1.6 % (2-12); PLATELET COUNT 277 X10'3 (140-440); RED BLOOD COUNT 3.62 X10'6 (4.70-6.10); RED CELL DISTRIBUTION WIDTH 14.7 % (11.5-14.5); WHITE BLOOD COUNT 6.6 X10'3 (4.5-11.0)
[2024-01-09 06:20] LABS: ALBUMIN 2.3 G/DL (3.4-5.0); ANION GAP 8 (8-16); BLOOD UREA NITROGEN 28 MG/DL (7-18); BUN/CREATININE RATIO 27.7 (10.0-20.0); CALCIUM 8.2 MG/DL (8.5-10.1); CHLORIDE 107 MMOL/L (99-107); CREATININE 1.01 MG/DL (0.60-1.10); GLUCOSE 126 MG/DL (70-104); POTASSIUM 4.3 MMOL/L (3.5-5.1); SODIUM 140 MMOL/L (135-145); TOTAL CARBON DIOXIDE 24.8 MMOL/L (24-32); eCRCL 69 ML/MIN; eGFR 72 ML/MIN
[2024-01-09] MEDS ORDERED: ipratropium 0.5 MG/2.5ML nebule IH SCH (08:00)
[2024-01-10] VITALS (12 sets, daily range): BP systolic 112–119; BP diastolic 64–67; PULSE 60–86; RESP 18–25; TEMP 98–98.5; O2SAT 89–97
[2024-01-10 07:05] LABS: BASOPHILS % (AUTO) 0.1 % (0-1); EOSINOPHILS % (AUTO) 0 % (0-6); HEMATOCRIT 33.5 % (42.0-52.0); HEMOGLOBIN 11.2 g/dl (14.0-17.9); LYMPHOCYTES # (AUTO) 0.5 X10'3 (1.1-4.8); LYMPHOCYTES % (AUTO) 7.5 % (21-51); MEAN CORPUSCULAR HEMOGLOBIN 30.2 PG (27.0-31.0); MEAN CORPUSCULAR HGB CONC 33.5 g/dL (33.0-36.5); MEAN PLATELET VOLUME 7.5 FL (7.4-10.4); MONOCYTES # (AUTO) 0.2 X10'3 (0-0.9); MONOCYTES % (AUTO) 3.1 % (2-12); NEUTROPHILS # (AUTO) 6.5 X10'3 (1.8-7.7); NEUTROPHILS % (AUTO) 89.3 % (42-75); PLATELET COUNT 323 X10'3 (140-440); RED BLOOD COUNT 3.72 X10'6 (4.70-6.10); RED CELL DISTRIBUTION WIDTH 14.7 % (11.5-14.5); WHITE BLOOD COUNT 7.2 X10'3 (4.5-11.0)
[2024-01-10 07:07] LABS: ALBUMIN 2.4 G/DL (3.4-5.0); ANION GAP 8 (8-16); BLOOD UREA NITROGEN 34 MG/DL (7-18); BUN/CREATININE RATIO 34.7 (10.0-20.0); CALCIUM 8.2 MG/DL (8.5-10.1); CHLORIDE 104 MMOL/L (99-107); CREATININE 0.98 MG/DL (0.60-1.10); GLUCOSE 135 MG/DL (70-104); POTASSIUM 4.5 MMOL/L (3.5-5.1); SODIUM 134 MMOL/L (135-145); TOTAL CARBON DIOXIDE 22.5 MMOL/L (24-32); eCRCL 71 ML/MIN; eGFR 75 ML/MIN
[2024-01-10 07:38] LABS: BURR CELLS 2+; PLATELET ESTIMATE NORMAL
[2024-01-10] MEDS: NIRMATRELVIR/RITONAVIR 300/100mg - 1 EACH TAB.DS.PK PO SCH (11:02)
[2024-01-11] VITALS (7 sets, daily range): BP systolic 112–141; BP diastolic 62–84; PULSE 60–69; RESP 15–22; TEMP 97.2–98; O2SAT 92–99
[2024-01-11 09:41] LABS: BASOPHILS % (AUTO) 0 % (0-1); EOSINOPHILS % (AUTO) 0 % (0-6); HEMATOCRIT 34.2 % (42.0-52.0); HEMOGLOBIN 11.4 g/dl (14.0-17.9); LYMPHOCYTES # (AUTO) 0.4 X10'3 (1.1-4.8); LYMPHOCYTES % (AUTO) 5.4 % (21-51); MEAN CORPUSCULAR HEMOGLOBIN 29.6 PG (27.0-31.0); MEAN CORPUSCULAR HGB CONC 33.2 g/dL (33.0-36.5); MEAN PLATELET VOLUME 7.3 FL (7.4-10.4); MONOCYTES # (AUTO) 0.1 X10'3 (0-0.9); MONOCYTES % (AUTO) 1.6 % (2-12); NEUTROPHILS # (AUTO) 6.3 X10'3 (1.8-7.7); PLATELET COUNT 365 X10'3 (140-440); RED BLOOD COUNT 3.84 X10'6 (4.70-6.10); WHITE BLOOD COUNT 6.8 X10'3 (4.5-11.0)
[2024-01-11 10:03] LABS: ALANINE AMINOTRANSFERASE 64 U/L (12-78); ALBUMIN 2.5 G/DL (3.4-5.0); ALBUMIN/GLOBULIN RATIO 0.7 (1.1-1.5); ALKALINE PHOSPHATASE 63 IU/L (46-116); ANION GAP 5 (8-16); ASPARTATE AMINO TRANSFERASE 27 U/L (10-37); BILIRUBIN,TOTAL 0.3 MG/DL (0.1-1.0); BLOOD UREA NITROGEN 37 MG/DL (7-18); BUN/CREATININE RATIO 35.2 (10.0-20.0); CALCIUM 7.9 MG/DL (8.5-10.1); CHLORIDE 103 MMOL/L (99-107); CREATININE 1.05 MG/DL (0.60-1.10); GLUCOSE 213 MG/DL (70-104); POTASSIUM 4.4 MMOL/L (3.5-5.1); SODIUM 134 MMOL/L (135-145); TOTAL CARBON DIOXIDE 25.9 MMOL/L (24-32); TOTAL PROTEIN 5.9 G/DL (6.4-8.2); eCRCL 67 ML/MIN; eGFR 69 ML/MIN
[2024-01-11] MEDS ORDERED: LEVO-65 PO (15:46)
[2024-01-12] VITALS (11 sets, daily range): BP systolic 131–145; BP diastolic 69–78; PULSE 60–90; RESP 16–23; TEMP 97.4–98.1; O2SAT 92–96
[2024-01-13] VITALS (9 sets, daily range): BP systolic 109–151; BP diastolic 58–81; PULSE 61–77; RESP 17–22; TEMP 97.5–98.2; O2SAT 92–96
[2024-01-13] MEDS: methylPREDNISolone sod succ/PF 40mg inj. IV SCH (10:01)
[2024-01-13] MEDS: pantoprazole 40mg Tablet.DR PO SCH (15:29)
[2024-01-13] MEDS: magnesium hydroxide 30ml (MOM) UD suspension PO PRN (15:46)
[2024-01-14] VITALS (10 sets, daily range): BP systolic 110–115; BP diastolic 65–91; PULSE 50–90; RESP 16–22; TEMP 97.7–98.2; O2SAT 94–97
[2024-01-14] MEDS ORDERED: haloperidol lactate 5mg/ml inj IVH ONE (02:30)
[2024-01-14] MEDS: haloperidol lactate 5mg/ml inj IM ONE (02:45)
[2024-01-14 06:46] LABS: PRO BRAIN NATRIURETIC PEPTIDE 901 PG/ML (0-450)
[2024-01-14] MEDS: lactose-reduced food (Ensure Enlive) - 237ml bottle PO SCH (07:30)
[2024-01-14] MEDS: furosemide 20MG tablet PO SCH (08:52)
[2024-01-14] MEDS: predniSONE 20 mg tablet PO SCH (08:52)
[2024-01-14 09:17] LABS: ALANINE AMINOTRANSFERASE 69 U/L (12-78); ALBUMIN 2.4 G/DL (3.4-5.0); ALBUMIN/GLOBULIN RATIO 0.8 (1.1-1.5); ALKALINE PHOSPHATASE 56 IU/L (46-116); ANION GAP 7 (8-16); ASPARTATE AMINO TRANSFERASE 22 U/L (10-37); BILIRUBIN,TOTAL 0.4 MG/DL (0.1-1.0); BLOOD UREA NITROGEN 42 MG/DL (7-18); CALCIUM 7.8 MG/DL (8.5-10.1); CHLORIDE 103 MMOL/L (99-107); GLUCOSE 89 MG/DL (70-104); POTASSIUM 4.7 MMOL/L (3.5-5.1); SODIUM 134 MMOL/L (135-145); TOTAL CARBON DIOXIDE 23.9 MMOL/L (24-32); TOTAL PROTEIN 5.6 G/DL (6.4-8.2); eCRCL 70 ML/MIN; eGFR 73 ML/MIN
[2024-01-15] MEDS: guaiFENesin/DM 10ml UD oral syrup PO ONE (01:03)
[2024-01-15 04:14] VITALS: PULSE 68; RESP 22; O2SAT 92
[2024-01-15 04:20] VITALS: PULSE 68; RESP 20
[2024-01-15 06:00] VITALS: BP 126/68; PULSE 76; RESP 76; TEMP 97.3; O2SAT 96
[2024-01-15 14:01] VITALS: PULSE 75; RESP 16; O2SAT 95
[2024-01-15 18:00] VITALS: BP 120/76; PULSE 71; RESP 20; TEMP 98.9; O2SAT 95
[2024-01-15 20:00] VITALS: RESP 18; O2SAT 96
[2024-01-16] MEDS: guaiFENesin 200 MG/10 ML oral syrup UD cup PO PRN (03:03)
[2024-01-16 03:40] VITALS: PULSE 73; RESP 22; O2SAT 91
[2024-01-16 03:45] VITALS: PULSE 74; RESP 22
[2024-01-16] MEDS: acetaminophen 325mg tablet PO PRN (04:15)
[2024-01-16] MEDS: LORazepam 1 MG tablet PO ONE (04:22)
[2024-01-16 07:00] VITALS: BP 111/65; PULSE 66; RESP 20; TEMP 98.8; O2SAT 96
[2024-01-16 08:00] VITALS: RESP 19; O2SAT 94
[2024-01-16 09:21] VITALS: PULSE 86; PULSE 88; RESP 22; O2SAT 95
[2024-01-16 10:03] LABS: BILIRUBIN,URINE NEGATIVE (Neg); CLARITY,URINE CLEAR (Clear); COLOR,URINE YELLOW (Yellow); GLUCOSE, URINE NEGATIVE (Neg); KETONES,URINE NEGATIVE (Neg); LEUKOCYTE ESTERASE ,URINE NEGATIVE (Neg); NITRITES, URINE NEGATIVE (Neg); OCCULT BLOOD,URINE NEGATIVE (Neg); PROTEIN,URINE NEGATIVE (Neg); UROBILINOGEN,URINE 0.2 E.U/dL (0.2-1.0)
[2024-01-16 10:09] LABS: UA COLLECTION TYPE CLN CATCH MIDSTREAM
[2024-01-18] MEDS ORDERED: PRED10TA23 PO (13:20)
[2024-01-18] MEDS ORDERED: FURO-150 PO (13:20)
== END 2024-01-16 17:13 | DRG 177 ==
LOC: ER 01:05 → ED HOLD 04:52 → ORTHO 4S 14:40
PROVIDERS: ADMIT Internal Medicine Pulmonary Disease; ATTEND Internal Medicine
DX: U07.1 COVID-19 (principal); J12.82 Pneumonia due to coronavirus disease 2019; J96.01 Acute respiratory failure with hypoxia; R65.11 Systemic inflammatory response syndrome (SIRS) of non-infectious origin with acute organ dysfunction; J44.1 Chronic obstructive pulmonary disease with (acute) exacerbation; I50.30 Unspecified diastolic (congestive) heart failure; J44.0 Chronic obstructive pulmonary disease with (acute) lower respiratory infection; G95.89 Other specified diseases of spinal cord; G89.4 Chronic pain syndrome; J43.9 Emphysema, unspecified; Z79.82 Long term (current) use of aspirin; Z76.5 Malingerer [conscious simulation]; Z79.899 Other long term (current) drug therapy; Z87.891 Personal history of nicotine dependence; Z85.46 Personal history of malignant neoplasm of prostate
CPT/HCPCS: 36415; 71045; 80048; 80053; 80202; 81003; 82948; 83605; 83735; 83880; 84132; 84145; 84484; 85008; 85025; 87040; 87070; 87081; 87502; 87503; 87811; 92508; 92616; 93005; 94640; 94664; 94760; 96374; 97110; 97116; 97162; 97530; 99285; A4620; C1758; G0378; J0692; J1100; J1644; J1650; J1940; J2919; J3372; J7030; J7040; J7512

== ENCOUNTER 2024-01-20 18:07 | Inpatient (IN) | payer OTHER, MEDICARE ==
[~2024-01-20] VITALS: Ht 182.9 cm; Wt 91.0 kg
[~2024-01-20 18:07] MED LIST changes: +FURO-150 PO; -METH4TAB81 PO; +PRED10TA23 PO
[2024-01-20] MEDS ORDERED: albuterol 2.5 MG/3 ML nebule CONTNEB PRN (18:20)
[2024-01-20 18:27] LABS: TOTAL HEMOGLOBIN 13.7 G/dl (13.5-17.5)
[2024-01-20] MEDS: methylPREDNISolone sod succ 125mg/2ml vial IV ONE (18:35)
[2024-01-20 18:36] LABS: BASOPHILS % (AUTO) 0.3 % (0-1); EOSINOPHILS % (AUTO) 0.7 % (0-6); HEMATOCRIT 38.3 % (42.0-52.0); LYMPHOCYTES # (AUTO) 1.5 X10'3 (1.1-4.8); LYMPHOCYTES % (AUTO) 21.5 % (21-51); MEAN CORPUSCULAR HEMOGLOBIN 30.4 PG (27.0-31.0); MEAN CORPUSCULAR HGB CONC 33.9 g/dL (33.0-36.5); MEAN CORPUSCULAR VOLUME 89.7 FL (78-98); MEAN PLATELET VOLUME 7.8 FL (7.4-10.4); MONOCYTES # (AUTO) 0.6 X10'3 (0-0.9); MONOCYTES % (AUTO) 8.9 % (2-12); NEUTROPHILS # (AUTO) 4.6 X10'3 (1.8-7.7); NEUTROPHILS % (AUTO) 68.6 % (42-75); PLATELET COUNT 192 X10'3 (140-440); RED BLOOD COUNT 4.27 X10'6 (4.70-6.10); RED CELL DISTRIBUTION WIDTH 15.9 % (11.5-14.5); WHITE BLOOD COUNT 6.8 X10'3 (4.5-11.0)
[2024-01-20] MEDS: albuterol 2.5 MG/3 ML nebule CONTNEB PRN (18:37)
[2024-01-20] MEDS: LORazepam 2 mg/ml vial IV ONE (18:41)
[2024-01-20] MEDS: normal saline 1000ML IV soln IVB ONE ×2 (18:41→20:51)
[2024-01-20] MEDS: azithromycin/NS 500mg/250ml 250 ML IV ONE (18:43)
[2024-01-20] MEDS: magnesium sulf-water 2g/50mL 50 ML IV ONE (18:43)
[2024-01-20 18:50] VITALS: PULSE 100; PULSE 82; RESP 25; RESP 28; O2SAT 95; O2SAT 97
[2024-01-20 18:53] LABS: APTT 20 SECONDS (22-32); D-DIMER 5.06 MG/L FEU (0-0.50); PROTHROMBIN TIME 10.1 SECONDS (9.0-12.0)
[2024-01-20 19:09] VITALS: PULSE 74; RESP 16
[2024-01-20 19:09] LABS: ALANINE AMINOTRANSFERASE 60 U/L (12-78); ALBUMIN 2.5 G/DL (3.4-5.0); ALBUMIN/GLOBULIN RATIO 0.7 (1.1-1.5); ALKALINE PHOSPHATASE 73 IU/L (46-116); ANION GAP 8 (8-16); ASPARTATE AMINO TRANSFERASE 30 U/L (10-37); BILIRUBIN,TOTAL 0.4 MG/DL (0.1-1.0); BLOOD UREA NITROGEN 22 MG/DL (7-18); BUN/CREATININE RATIO 27.2 (10.0-20.0); CALCIUM 7.8 MG/DL (8.5-10.1); CHLORIDE 102 MMOL/L (99-107); CREATININE 0.81 MG/DL (0.60-1.10); GLUCOSE 105 MG/DL (70-104); POTASSIUM 4.4 MMOL/L (3.5-5.1); SODIUM 135 MMOL/L (135-145); TOTAL CARBON DIOXIDE 24.8 MMOL/L (24-32); TOTAL PROTEIN 6.3 G/DL (6.4-8.2); eCRCL 86 ML/MIN; eGFR > 90 ML/MIN
[2024-01-20 19:12] LABS: C-REACTIVE PROTEIN 1.05 MG/DL (0.0-0.5); MAGNESIUM 1.9 MG/DL (1.5-2.4); PHOSPHORUS 3.1 MG/DL (2.3-4.5)
[2024-01-20] MEDS ORDERED: iohexol 350MG/ML 100ml bottle IV ONE (19:24)
[2024-01-20] MEDS: piperacillin/tazo 4.5gm/100ml 100 ML IV ONE (20:32)
[2024-01-20] MEDS ORDERED: heparin 10,000 units/1 ML INJ IV PRN (20:45)
[2024-01-20] MEDS ORDERED: heparin 10,000 units/1 ML INJ IV ONE (20:45)
[2024-01-20] MEDS: heparin 10,000 units/1 ML INJ IV ONE (21:09)
[2024-01-20] MEDS: heparin 25,000 UNIT/250ml bag 250 ML IV PRN (21:11)
[2024-01-20] MEDS: MESSAGE TO NURSING IV ONE (21:13)
[2024-01-20] MEDS ORDERED: potassium Cl 40MEQ/1/2NS 520ml 520 ML IV PRN (21:25)
[2024-01-20] MEDS ORDERED: magnesium Cl slow-release 64mg tablet PO PRN (21:25)
[2024-01-20] MEDS ORDERED: magnesium sulf-water 4G/100mL 100 ML IV PRN (21:25)
[2024-01-20] MEDS ORDERED: morphine 2 MG/ML inj. syringe IV PRN (21:25)
[2024-01-20] MEDS ORDERED: magnesium sulf-water 2g/50mL 50 ML IV PRN (21:25)
[2024-01-20] MEDS ORDERED: potassium Cl 20 mEq SR tablet PO PRN ×2 (21:25)
[2024-01-20] MEDS ORDERED: acetaminophen 325mg tablet PO PRN (21:25)
[2024-01-20] MEDS ORDERED: magnesium hydroxide 30ml (MOM) UD suspension PO PRN (21:25)
[2024-01-20] MEDS ORDERED: mag hydrox/Alum hydrox/simeth 30ml oral suspension PO PRN (21:25)
[2024-01-20 21:30] VITALS: PULSE 80; RESP 15; O2SAT 97
[2024-01-20 21:39] LABS: BASOPHILS % (AUTO) 0.1 % (0-1); EOSINOPHILS % (AUTO) 0.1 % (0-6); HEMATOCRIT 35.4 % (42.0-52.0); HEMOGLOBIN 11.8 g/dl (14.0-17.9); LYMPHOCYTES # (AUTO) 0.3 X10'3 (1.1-4.8); LYMPHOCYTES % (AUTO) 3.7 % (21-51); MEAN CORPUSCULAR HEMOGLOBIN 30.2 PG (27.0-31.0); MEAN CORPUSCULAR HGB CONC 33.4 g/dL (33.0-36.5); MEAN CORPUSCULAR VOLUME 90.3 FL (78-98); MEAN PLATELET VOLUME 7.5 FL (7.4-10.4); MONOCYTES # (AUTO) 0.3 X10'3 (0-0.9); NEUTROPHILS # (AUTO) 8.2 X10'3 (1.8-7.7); NEUTROPHILS % (AUTO) 93.1 % (42-75); PLATELET COUNT 144 X10'3 (140-440); RED BLOOD COUNT 3.92 X10'6 (4.70-6.10); RED CELL DISTRIBUTION WIDTH 15.5 % (11.5-14.5); WHITE BLOOD COUNT 8.9 X10'3 (4.5-11.0)
[2024-01-20] MEDS: normal saline 1000ml 1,000 ML IV SCH (21:42)
[2024-01-20] MEDS: DEXAMETHASONE 6 MG TABLET PO SCH (21:55)
[2024-01-20] MEDS ORDERED: ipratropium/albuterol 3ml nebule NEB SCH (23:00)
[2024-01-20 23:05] VITALS: BP 125/67; PULSE 75; RESP 20; TEMP 97.3; O2SAT 99
[2024-01-20 23:32] VITALS: RESP 20; O2SAT 99
[2024-01-21] VITALS (16 sets, daily range): BP systolic 96–150; BP diastolic 62–84; PULSE 51–94; RESP 12–20; TEMP 97.3–97.6; O2SAT 90–99
[2024-01-21] MEDS ORDERED: rocuronium 10mg/ml inj IV ONE (01:00)
[2024-01-21 02:57] LABS: BASOPHILS % (AUTO) 0.1 % (0-1); EOSINOPHILS % (AUTO) 0 % (0-6); HEMATOCRIT 36.5 % (42.0-52.0); HEMOGLOBIN 12.1 g/dl (14.0-17.9); LYMPHOCYTES # (AUTO) 0.3 X10'3 (1.1-4.8); LYMPHOCYTES % (AUTO) 4.4 % (21-51); MEAN CORPUSCULAR HGB CONC 33.3 g/dL (33.0-36.5); MEAN CORPUSCULAR VOLUME 89.9 FL (78-98); MEAN PLATELET VOLUME 7.7 FL (7.4-10.4); MONOCYTES # (AUTO) 0.1 X10'3 (0-0.9); MONOCYTES % (AUTO) 1.6 % (2-12); NEUTROPHILS # (AUTO) 5.9 X10'3 (1.8-7.7); NEUTROPHILS % (AUTO) 93.9 % (42-75); PLATELET COUNT 154 X10'3 (140-440); RED BLOOD COUNT 4.05 X10'6 (4.70-6.10); RED CELL DISTRIBUTION WIDTH 15.9 % (11.5-14.5); WHITE BLOOD COUNT 6.3 X10'3 (4.5-11.0)
[2024-01-21 03:33] LABS: ALANINE AMINOTRANSFERASE 54 U/L (12-78); ALBUMIN 2.2 G/DL (3.4-5.0); ALBUMIN/GLOBULIN RATIO 0.6 (1.1-1.5); ALKALINE PHOSPHATASE 66 IU/L (46-116); ANION GAP 7 (8-16); ASPARTATE AMINO TRANSFERASE 24 U/L (10-37); BILIRUBIN,TOTAL 0.4 MG/DL (0.1-1.0); BLOOD UREA NITROGEN 19 MG/DL (7-18); BUN/CREATININE RATIO 21.3 (10.0-20.0); CALCIUM 7.3 MG/DL (8.5-10.1); CHLORIDE 105 MMOL/L (99-107); CREATININE 0.89 MG/DL (0.60-1.10); FERRITIN 321 NG/ML (26-388); GLUCOSE 139 MG/DL (70-104); LACTATE DEHYDROGENASE 257 U/L (85-227); MAGNESIUM 2.1 MG/DL (1.5-2.4); POTASSIUM 4.6 MMOL/L (3.5-5.1); SODIUM 138 MMOL/L (135-145); TOTAL CARBON DIOXIDE 25.9 MMOL/L (24-32); TOTAL PROTEIN 5.6 G/DL (6.4-8.2); eCRCL 79 ML/MIN; eGFR 83 ML/MIN
[2024-01-21] MEDS: MESSAGE TO NURSING IV ONE (04:28)
[2024-01-21 07:48] LABS: ALLEN'S TEST POSITIVE; MODE BIPAP
[2024-01-21 07:50] LABS: ABG BASE EXCESS -3.4 mmol/L (-2.0-3.0); ABG HCO3 21.4 mmol/L (21.0-28.0); ABG PCO2 (T) 37.7 mmHg (35.0-48.0); ABG PH (T) 7.371 (7.350-7.450); ABG PO2 (T) 66.1 mmHg (83.0-108.0); FCOHb 0.1 % (0.5-1.5); FHHb 8.2 % (0.0-5.0); FMetHb 0.3 % (0.0-1.5); FO2Hb 91.4 % (94.0-98.0)
[2024-01-21 07:51] LABS: ABG OXYGEN SATURATION 91.8 % (94.0-98.0)
[2024-01-21] MEDS: K and/or MAG REPLACEMENT MC SCH (08:00)
[2024-01-21] MEDS: docusate sod 100mg capsule PO SCH (08:55)
[2024-01-21] MEDS: CefTRIAXone 2gm/D5W 50ml BAG 50 ML IV SCH (08:55)
[2024-01-21] MEDS: albuterol 60 PUFF/8GM Inhaler (90mcg/1 puff) IH PRN (16:05)
[2024-01-21] MEDS: apixaban 5mg tablet PO SCH (20:59)
[2024-01-21] MEDS: azithromycin/NS 500mg/250ml 250 ML IV ONE (21:00)
[2024-01-22] VITALS (16 sets, daily range): BP systolic 120–133; BP diastolic 62–75; PULSE 55–86; RESP 16–26; TEMP 97–97.9; O2SAT 88–99
[2024-01-22] MEDS: morphine 2 MG/ML inj. syringe IV PRN (00:44)
[2024-01-22] MEDS: ondansetron/PF 4mg/2ml inj IV PRN (00:44)
[2024-01-22 07:45] LABS: BASOPHILS % (AUTO) 0.1 % (0-1); EOSINOPHILS % (AUTO) 0 % (0-6); HEMATOCRIT 35.1 % (42.0-52.0); HEMOGLOBIN 11.9 g/dl (14.0-17.9); LYMPHOCYTES # (AUTO) 0.9 X10'3 (1.1-4.8); LYMPHOCYTES % (AUTO) 9.2 % (21-51); MEAN CORPUSCULAR HEMOGLOBIN 30.4 PG (27.0-31.0); MEAN CORPUSCULAR HGB CONC 33.8 g/dL (33.0-36.5); MEAN CORPUSCULAR VOLUME 89.9 FL (78-98); MEAN PLATELET VOLUME 7.4 FL (7.4-10.4); MONOCYTES # (AUTO) 0.5 X10'3 (0-0.9); MONOCYTES % (AUTO) 4.6 % (2-12); NEUTROPHILS # (AUTO) 8.5 X10'3 (1.8-7.7); NEUTROPHILS % (AUTO) 86.1 % (42-75); PLATELET COUNT 138 X10'3 (140-440); RED BLOOD COUNT 3.91 X10'6 (4.70-6.10); RED CELL DISTRIBUTION WIDTH 15.5 % (11.5-14.5); WHITE BLOOD COUNT 9.9 X10'3 (4.5-11.0)
[2024-01-22 08:19] LABS: ALANINE AMINOTRANSFERASE 54 U/L (12-78); ALBUMIN 2.2 G/DL (3.4-5.0); ALBUMIN/GLOBULIN RATIO 0.6 (1.1-1.5); ALKALINE PHOSPHATASE 58 IU/L (46-116); ANION GAP 11 (8-16); ASPARTATE AMINO TRANSFERASE 20 U/L (10-37); BILIRUBIN,TOTAL 0.4 MG/DL (0.1-1.0); BLOOD UREA NITROGEN 22 MG/DL (7-18); BUN/CREATININE RATIO 28.9 (10.0-20.0); CHLORIDE 106 MMOL/L (99-107); CREATININE 0.76 MG/DL (0.60-1.10); FERRITIN 290 NG/ML (26-388); GLUCOSE 103 MG/DL (70-104); MAGNESIUM 2.2 MG/DL (1.5-2.4); POTASSIUM 4.3 MMOL/L (3.5-5.1); SODIUM 141 MMOL/L (135-145); TOTAL CARBON DIOXIDE 24.4 MMOL/L (24-32); TOTAL PROTEIN 5.6 G/DL (6.4-8.2); eCRCL 92 ML/MIN; eGFR > 90 ML/MIN
[2024-01-22 09:31] LABS: ABG BASE EXCESS -2.1 mmol/L (-2.0-3.0); ABG OXYGEN SATURATION 94.1 % (94.0-98.0); ABG PCO2 (T) 30.9 mmHg (35.0-48.0); ABG PO2 (T) 66.8 mmHg (83.0-108.0); ALLEN'S TEST POSITIVE; FCOHb 0.3 % (0.5-1.5); FHHb 5.9 % (0.0-5.0); FMetHb 0.3 % (0.0-1.5); FO2Hb 93.5 % (94.0-98.0); MODE MASK - BIPAP; TOTAL HEMOGLOBIN 12.2 G/dl (13.5-17.5)
[2024-01-22 09:53] LABS: % IRON SATURATION 25 % (11-46); IRON 55 UG/DL (53-167); TOTAL IRON BINDING CAPACITY 218 UG/DL (259-388)
[2024-01-22] MEDS: azithromycin/NS 500mg/250ml 250 ML IV SCH (11:10)
[2024-01-22] MEDS: methylPREDNISolone sod succ 125mg/2ml vial IV SCH (14:24)
[2024-01-22] MEDS ORDERED: ESOM40CA PO (23:32)
[2024-01-22] MEDS ORDERED: HYDROcodone/acetaminophen 5mg/325mg tablet PO PRN (23:40)
[2024-01-22] MEDS ORDERED: HYDR12.55 PO (23:47)
[2024-01-22] MEDS ORDERED: WARF6TAB49 PO (23:47)
[2024-01-22] MEDS ORDERED: TRAZ-256 PO (23:47)
[2024-01-22] MEDS ORDERED: LOP12.5T PO (23:47)
[2024-01-22] MEDS ORDERED: AMLO2.5T2 PO (23:47)
[2024-01-22] MEDS: HYDROcodone/acetaminophen 5mg/325mg tablet PO PRN (23:49)
[2024-01-23] VITALS (17 sets, daily range): BP systolic 122–148; BP diastolic 55–73; PULSE 56–86; RESP 13–22; TEMP 97.1–97.8; O2SAT 93–98
[2024-01-23 08:08] LABS: BASOPHILS % (AUTO) 0.1 % (0-1); EOSINOPHILS % (AUTO) 0 % (0-6); HEMATOCRIT 34.7 % (42.0-52.0); HEMOGLOBIN 11.7 g/dl (14.0-17.9); LYMPHOCYTES # (AUTO) 0.4 X10'3 (1.1-4.8); LYMPHOCYTES % (AUTO) 4.8 % (21-51); MEAN CORPUSCULAR HEMOGLOBIN 30.6 PG (27.0-31.0); MEAN CORPUSCULAR HGB CONC 33.7 g/dL (33.0-36.5); MEAN CORPUSCULAR VOLUME 90.9 FL (78-98); MEAN PLATELET VOLUME 7.6 FL (7.4-10.4); MONOCYTES # (AUTO) 0.1 X10'3 (0-0.9); MONOCYTES % (AUTO) 1.4 % (2-12); NEUTROPHILS # (AUTO) 8.2 X10'3 (1.8-7.7); NEUTROPHILS % (AUTO) 93.7 % (42-75); PLATELET COUNT 123 X10'3 (140-440); RED BLOOD COUNT 3.82 X10'6 (4.70-6.10); RED CELL DISTRIBUTION WIDTH 15.6 % (11.5-14.5); WHITE BLOOD COUNT 8.7 X10'3 (4.5-11.0)
[2024-01-23 08:38] LABS: ALANINE AMINOTRANSFERASE 55 U/L (12-78); ALBUMIN 2.2 G/DL (3.4-5.0); ALBUMIN/GLOBULIN RATIO 0.6 (1.1-1.5); ALKALINE PHOSPHATASE 56 IU/L (46-116); ANION GAP 9 (8-16); ASPARTATE AMINO TRANSFERASE 21 U/L (10-37); BILIRUBIN,TOTAL 0.3 MG/DL (0.1-1.0); BLOOD UREA NITROGEN 25 MG/DL (7-18); BUN/CREATININE RATIO 32.9 (10.0-20.0); CALCIUM 8.2 MG/DL (8.5-10.1); CHLORIDE 106 MMOL/L (99-107); CREATININE 0.76 MG/DL (0.60-1.10); GLUCOSE 139 MG/DL (70-104); MAGNESIUM 2.2 MG/DL (1.5-2.4); POTASSIUM 4.7 MMOL/L (3.5-5.1); SODIUM 137 MMOL/L (135-145); TOTAL CARBON DIOXIDE 22.1 MMOL/L (24-32); TOTAL PROTEIN 5.7 G/DL (6.4-8.2); eCRCL 92 ML/MIN; eGFR > 90 ML/MIN
== END 2024-01-23 19:30 | DRG 175 ==
LOC: ER 18:08 → ED HOLD 21:32 → PCU 3S 23:20
PROVIDERS: ADMIT Student in an Organized Health Care Education/Training Program; ATTEND Internal Medicine
PROC: B32T1ZZ Computerized Tomography (CT Scan) of Left Pulmonary Artery using Low Osmolar Contrast (ICD-10-PCS; principal; 2024-01-20)
PROC: B3201ZZ Computerized Tomography (CT Scan) of Thoracic Aorta using Low Osmolar Contrast (ICD-10-PCS; 2024-01-20)
PROC: B32S1ZZ Computerized Tomography (CT Scan) of Right Pulmonary Artery using Low Osmolar Contrast (ICD-10-PCS; 2024-01-20)
PROC: 5A09357 Assistance with Respiratory Ventilation, Less than 24 Consecutive Hours, Continuous Positive Airway Pressure (ICD-10-PCS; 2024-01-20)
PROC: 5A09357 Assistance with Respiratory Ventilation, Less than 24 Consecutive Hours, Continuous Positive Airway Pressure (ICD-10-PCS; 2024-01-22)
PROC: 5A0935A Assistance with Respiratory Ventilation, Less than 24 Consecutive Hours, High Flow/Velocity Cannula (ICD-10-PCS; 2024-01-22)
PROC: 5A0935A Assistance with Respiratory Ventilation, Less than 24 Consecutive Hours, High Flow/Velocity Cannula (ICD-10-PCS; 2024-01-23)
DX: I26.99 Other pulmonary embolism without acute cor pulmonale (principal); I21.A1 Myocardial infarction type 2; U07.1 COVID-19; J96.01 Acute respiratory failure with hypoxia; J12.82 Pneumonia due to coronavirus disease 2019; J10.08 Influenza due to other identified influenza virus with other specified pneumonia; J44.0 Chronic obstructive pulmonary disease with (acute) lower respiratory infection; J44.1 Chronic obstructive pulmonary disease with (acute) exacerbation; D64.9 Anemia, unspecified; J43.9 Emphysema, unspecified; Z85.118 Personal history of other malignant neoplasm of bronchus and lung; Z79.899 Other long term (current) drug therapy; Z85.46 Personal history of malignant neoplasm of prostate
CPT/HCPCS: 36415; 36600; 71045; 71275; 80053; 82607; 82728; 82803; 82948; 83540; 83550; 83615; 83735; 84100; 84484; 85018; 85025; 85379; 85610; 85651; 85730; 86140; 87081; 87502; 87503; 87811; 93005; 94640; 94660; 94760; 96365; 96367; 97110; 97161; 99291; A4615; A6590; G0378; J0456; J0696; J1644; J2060; J2270; J2405; J2543; J2919; J3490; J7030; J8540; Q9967

== ENCOUNTER 2024-03-09 13:18 | Inpatient (IN) | payer OTHER, MEDICARE ==
[2024-03-09] VITALS (9 sets, daily range): BP systolic 140–182; BP diastolic 75–81; PULSE 78–94; RESP 16–22; TEMP 97.9–98; O2SAT 94–97
[~2024-03-09] VITALS: Ht 182.9 cm; Wt 86.0 kg
[~2024-03-09 13:18] MED LIST changes: +AMLO2.5T2 PO; +ESOM40CA PO; +HYDR12.55 PO; +LOP12.5T PO; -PRED10TA23 PO; +TRAZ-256 PO; +WARF6TAB49 PO
[2024-03-09] MEDS: normal saline 1000ML IV soln IVB ONE (14:03)
[2024-03-09 14:25] LABS: BASOPHILS % (AUTO) 0.1 % (0-1); EOSINOPHILS # (AUTO) 0.1 X10'3 (0-0.9); EOSINOPHILS % (AUTO) 0.5 % (0-6); HEMATOCRIT 35.1 % (42.0-52.0); HEMOGLOBIN 11.8 g/dl (14.0-17.9); LYMPHOCYTES # (AUTO) 0.7 X10'3 (1.1-4.8); LYMPHOCYTES % (AUTO) 7.2 % (21-51); MEAN CORPUSCULAR HEMOGLOBIN 29.9 PG (27.0-31.0); MEAN CORPUSCULAR HGB CONC 33.6 g/dL (33.0-36.5); MEAN PLATELET VOLUME 6.5 FL (7.4-10.4); MONOCYTES # (AUTO) 0.3 X10'3 (0-0.9); MONOCYTES % (AUTO) 3.2 % (2-12); NEUTROPHILS # (AUTO) 8.7 X10'3 (1.8-7.7); PLATELET COUNT 291 X10'3 (140-440); RED BLOOD COUNT 3.95 X10'6 (4.70-6.10); RED CELL DISTRIBUTION WIDTH 16.9 % (11.5-14.5); WHITE BLOOD COUNT 9.8 X10'3 (4.5-11.0)
[2024-03-09 14:40] LABS: ALBUMIN 2.2 G/DL (3.4-5.0); ANION GAP 6 (8-16); BLOOD UREA NITROGEN 22 MG/DL (7-18); BUN/CREATININE RATIO 37.9 (10.0-20.0); CALCIUM 8.4 MG/DL (8.5-10.1); CHLORIDE 102 MMOL/L (99-107); CREATININE 0.58 MG/DL (0.60-1.10); GLUCOSE 137 MG/DL (70-104); MAGNESIUM 2.2 MG/DL (1.5-2.4); POTASSIUM 4.3 MMOL/L (3.5-5.1); PRO BRAIN NATRIURETIC PEPTIDE 663 PG/ML (0-450); SODIUM 137 MMOL/L (135-145); TOTAL CARBON DIOXIDE 29.2 MMOL/L (24-32); eCRCL 121 ML/MIN; eGFR > 90 ML/MIN
[2024-03-09 14:49] LABS: ANISOCYTOSIS 1+; PLATELET ESTIMATE NORMAL; TOTAL CELLS COUNTED 100
[2024-03-09] MEDS ORDERED: cefTAZidime inj 2 GM in normal saline 100ml IV soln 100 ML IV ONE (14:55)
[2024-03-09 15:01] LABS: BILIRUBIN,URINE NEGATIVE (Neg); CLARITY,URINE CLEAR (Clear); COLOR,URINE YELLOW (Yellow); GLUCOSE, URINE NEGATIVE (Neg); KETONES,URINE NEGATIVE (Neg); LEUKOCYTE ESTERASE ,URINE NEGATIVE (Neg); OCCULT BLOOD,URINE TRACE-INTACT (Neg); PH,URINE 7.5 (4.8-8.0); PROTEIN,URINE NEGATIVE (Neg); UROBILINOGEN,URINE 0.2 E.U/dL (0.2-1.0)
[2024-03-09 15:09] LABS: UA COLLECTION TYPE URINAL
[2024-03-09 15:10] LABS: NITRITES, URINE NEGATIVE (Neg)
[2024-03-09 15:11] LABS: BACTERIA,URINE NONE SEEN /HPF (Neg); MUCUS STRANDS NONE SEEN /LPF (Neg); SQUAMOUS EPITHELIAL CELL,UR FEW /LPF (FEW); WBC,URINE 0-4 /HPF (0-4)
[2024-03-09] MEDS: ipratropium/albuterol 3ml nebule NEB ONE (15:11)
[2024-03-09] MEDS: methylPREDNISolone sod succ 125mg/2ml vial IV ONE (15:16)
[2024-03-09] MEDS ORDERED: potassium Cl 20 mEq SR tablet PO PRN ×2 (15:35)
[2024-03-09] MEDS ORDERED: magnesium sulf-water 2g/50mL 50 ML IV PRN (15:35)
[2024-03-09] MEDS ORDERED: azithromycin/NS 500mg/250ml 250 ML IV ONE (15:35)
[2024-03-09] MEDS ORDERED: magnesium hydroxide 30ml (MOM) UD suspension PO PRN ×2 (15:35→20:15)
[2024-03-09] MEDS ORDERED: HYDROcodone/acetaminophen 5mg/325mg tablet PO PRN ×2 (15:35→20:15)
[2024-03-09] MEDS ORDERED: acetaminophen 325mg tablet PO PRN ×3 (15:35→20:15)
[2024-03-09] MEDS ORDERED: magnesium sulf-water 4G/100mL 100 ML IV PRN (15:35)
[2024-03-09] MEDS ORDERED: mag hydrox/Alum hydrox/simeth 30ml oral suspension PO PRN (15:35)
[2024-03-09] MEDS ORDERED: ondansetron/PF 4mg/2ml inj IV PRN (15:35)
[2024-03-09] MEDS ORDERED: potassium Cl 40MEQ/1/2NS 520ml 520 ML IV PRN (15:35)
[2024-03-09] MEDS: cefTAZidime inj 2 GM in normal saline 100ml IV soln 100 ML IV ONE (15:52)
[2024-03-09] MEDS: ipratropium/albuterol 3ml nebule NEB SCH (16:00)
[2024-03-09] MEDS ORDERED: iohexol 350MG/ML 100ml bottle IV ONE (16:29)
[2024-03-09] MEDS: HYDROcodone/acetaminophen 10/325mg tab PO PRN (17:11)
[2024-03-09 17:16] LABS: D-DIMER 0.76 MG/L FEU (0-0.50)
[2024-03-09 17:19] LABS: ABG BASE EXCESS 4.2 mmol/L (-2.0-3.0); ABG HCO3 27.2 mmol/L (21.0-28.0); ABG OXYGEN SATURATION 92.8 % (94.0-98.0); ABG PH (T) 7.508 (7.350-7.450); ABG PO2 (T) 60.1 mmHg (83.0-108.0); ALLEN'S TEST POSITIVE; FCOHb 0.1 % (0.5-1.5); FHHb 7.2 % (0.0-5.0); FLOW 2 L/min; FMetHb 0.3 % (0.0-1.5); FO2Hb 92.4 % (94.0-98.0); MODE NASAL CANNULA; TOTAL HEMOGLOBIN 12.6 G/dl (13.5-17.5)
[2024-03-09] MEDS: K and/or MAG REPLACEMENT MC SCH (20:00)
[2024-03-09] MEDS ORDERED: heparin, porcine 5000 units/ml vial SQ SCH (20:00)
[2024-03-09] MEDS ORDERED: methylPREDNISolone sod succ 125mg/2ml vial IV SCH (20:00)
[2024-03-09] MEDS ORDERED: BISA10SU60 RC (20:01)
[2024-03-09] MEDS ORDERED: DOCU-148 PO (20:01)
[2024-03-09] MEDS ORDERED: MAGN400O6 PO (20:01)
[2024-03-09] MEDS ORDERED: APIX5TAB3 PO (20:01)
[2024-03-09] MEDS ORDERED: OMEP20TA23 PO (20:01)
[2024-03-09] MEDS ORDERED: HYDR-3973 PO (20:01)
[2024-03-09] MEDS ORDERED: IPRA3AMP31 IH (20:01)
[2024-03-09] MEDS ORDERED: ATOR40TA PO (20:01)
[2024-03-09] MEDS ORDERED: PRED10TA PO (20:01)
[2024-03-09] MEDS ORDERED: MOME13HF11 INH (20:01)
[2024-03-09] MEDS ORDERED: ACET-2119 PO (20:01)
[2024-03-09] MEDS ORDERED: GUAI600T45 PO (20:01)
[2024-03-09] MEDS ORDERED: HYDR-3965 PO (20:01)
[2024-03-09] MEDS ORDERED: POLY17PO10 PO (20:01)
[2024-03-09] MEDS ORDERED: NA P133E4 RC (20:01)
[2024-03-09] MEDS ORDERED: polyethylene glycol 3350 17gm powd pack PO PRN (20:15)
[2024-03-09] MEDS ORDERED: NA PHOS DI BA RC PRN (20:15)
[2024-03-09] MEDS ORDERED: NA PHOS M B RC PRN (20:15)
[2024-03-09] MEDS ORDERED: ipratropium/albuterol 3ml nebule IH PRN (20:15)
[2024-03-09] MEDS ORDERED: bisacodyl 10mg suppository rectal RC PRN (20:15)
[2024-03-09] MEDS ORDERED: non-formulary drug (Albuterol Sulfate (Proair Hfa) 1 PUFFS) IH PRN (20:15)
[2024-03-09] MEDS ORDERED: HYDROcodone/acetaminophen 10/325mg tab PO PRN (20:15)
[2024-03-09] MEDS: levoFLOXACIN-Levaquin 750MG/D5 150 ML IV SCH (21:31)
[2024-03-09] MEDS: apixaban 5mg tablet PO SCH (21:31)
[2024-03-09] MEDS: docusate sod 100mg capsule PO SCH (21:31)
[2024-03-09] MEDS: atorvastatin 20mg tablet PO SCH (21:31)
[2024-03-10] VITALS (14 sets, daily range): BP systolic 118–133; BP diastolic 68–76; PULSE 67–85; RESP 14–24; TEMP 97.7–98.2; O2SAT 93–98
[2024-03-10 06:21] LABS: BASOPHILS % (AUTO) 0.2 % (0-1); EOSINOPHILS % (AUTO) 0.1 % (0-6); HEMATOCRIT 33.2 % (42.0-52.0); HEMOGLOBIN 11.4 g/dl (14.0-17.9); LYMPHOCYTES # (AUTO) 0.7 X10'3 (1.1-4.8); LYMPHOCYTES % (AUTO) 8.9 % (21-51); MEAN CORPUSCULAR HEMOGLOBIN 30.3 PG (27.0-31.0); MEAN CORPUSCULAR HGB CONC 34.4 g/dL (33.0-36.5); MEAN CORPUSCULAR VOLUME 88.3 FL (78-98); MEAN PLATELET VOLUME 6.8 FL (7.4-10.4); MONOCYTES # (AUTO) 0.3 X10'3 (0-0.9); MONOCYTES % (AUTO) 4.5 % (2-12); NEUTROPHILS # (AUTO) 6.6 X10'3 (1.8-7.7); NEUTROPHILS % (AUTO) 86.3 % (42-75); PLATELET COUNT 295 X10'3 (140-440); RED BLOOD COUNT 3.76 X10'6 (4.70-6.10); RED CELL DISTRIBUTION WIDTH 17.4 % (11.5-14.5); WHITE BLOOD COUNT 7.7 X10'3 (4.5-11.0)
[2024-03-10 06:27] LABS: ALANINE AMINOTRANSFERASE 54 U/L (12-78); ALBUMIN/GLOBULIN RATIO 0.6 (1.1-1.5); ALKALINE PHOSPHATASE 59 IU/L (46-116); ANION GAP 9 (8-16); ASPARTATE AMINO TRANSFERASE 27 U/L (10-37); BILIRUBIN,TOTAL 0.5 MG/DL (0.1-1.0); BLOOD UREA NITROGEN 18 MG/DL (7-18); BUN/CREATININE RATIO 31.6 (10.0-20.0); CHLORIDE 103 MMOL/L (99-107); CREATININE 0.57 MG/DL (0.60-1.10); GLUCOSE 106 MG/DL (70-104); MAGNESIUM 2.2 MG/DL (1.5-2.4); SODIUM 138 MMOL/L (135-145); TOTAL CARBON DIOXIDE 25.9 MMOL/L (24-32); TOTAL PROTEIN 5.5 G/DL (6.4-8.2); eCRCL 123 ML/MIN; eGFR > 90 ML/MIN
[2024-03-10 06:41] LABS: CALCIUM 8.5 MG/DL (8.5-10.1)
[2024-03-10] MEDS: budesonide 0.5mg/2ml UD nebule IH SCH (07:27)
[2024-03-10] MEDS: ipratropium/albuterol 3ml nebule NEB SCH (07:27)
[2024-03-10] MEDS ORDERED: azithromycin/NS 500mg/250ml 250 ML IV SCH (08:00)
[2024-03-10] MEDS ORDERED: docusate sod 100mg capsule PO SCH (08:00)
[2024-03-10] MEDS ORDERED: non-formulary drug (Tiotropium Bromide (Spiriva Respimat) 2 PUFFS) PO SCH (08:00)
[2024-03-10] MEDS ORDERED: HYDROchlorothiazide 25mg tablet PO SCH (08:00)
[2024-03-10] MEDS ORDERED: apixaban 5mg tablet PO SCH (08:00)
[2024-03-10] MEDS: metoprolol tartrate 12.5mg (1/2 tablet) PO SCH (08:26)
[2024-03-10] MEDS: guaiFENesin ER 600mg tablet PO SCH (08:27)
[2024-03-10] MEDS: pantoprazole 40mg Tablet.DR PO SCH (08:28)
[2024-03-10 09:12] LABS: ANISOCYTOSIS 1+; PLATELET ESTIMATE NORMAL; TOTAL CELLS COUNTED 100
[2024-03-10 09:13] LABS: BURR CELLS FEW; ELLIPTOCYTES FEW
[2024-03-10] MEDS: albuterol 2.5 MG/3 ML nebule NEB PRN (09:18)
[2024-03-10] MEDS: furosemide 40mg/4ml inj IV ONE (11:23)
[2024-03-10] MEDS ORDERED: metoprolol tartrate 25mg tablet PO SCH (12:41)
[2024-03-10 13:10] LABS: PRO BRAIN NATRIURETIC PEPTIDE 886 PG/ML (0-450)
[2024-03-10] MEDS: spironolactone 50 MG tablet PO ONE (14:10)
[2024-03-10] MEDS: methylPREDNISolone sod succ 125mg/2ml vial IV SCH (18:11)
[2024-03-10] MEDS: pneumococcal 23-VAL P-sac vacc 25 mcg/0.5ml vial IMVAC ONE (18:12)
[2024-03-10] MEDS: metoprolol tartrate 25mg tablet PO SCH (20:42)
[2024-03-10] MEDS: LORazepam 1 MG tablet PO ONE (21:46)
[2024-03-11] VITALS (14 sets, daily range): BP systolic 107–128; BP diastolic 60–78; PULSE 59–94; RESP 14–24; TEMP 97.8–98.8; O2SAT 93–100
[2024-03-11 05:39] LABS: BASOPHILS % (AUTO) 0.1 % (0-1); EOSINOPHILS % (AUTO) 0 % (0-6); HEMOGLOBIN 11.7 g/dl (14.0-17.9); LYMPHOCYTES # (AUTO) 0.4 X10'3 (1.1-4.8); LYMPHOCYTES % (AUTO) 5.9 % (21-51); MEAN CORPUSCULAR HEMOGLOBIN 30.3 PG (27.0-31.0); MEAN CORPUSCULAR HGB CONC 34.4 g/dL (33.0-36.5); MEAN CORPUSCULAR VOLUME 87.9 FL (78-98); MEAN PLATELET VOLUME 6.5 FL (7.4-10.4); MONOCYTES # (AUTO) 0.1 X10'3 (0-0.9); MONOCYTES % (AUTO) 1.3 % (2-12); NEUTROPHILS # (AUTO) 6.6 X10'3 (1.8-7.7); NEUTROPHILS % (AUTO) 92.7 % (42-75); PLATELET COUNT 292 X10'3 (140-440); RED BLOOD COUNT 3.87 X10'6 (4.70-6.10); RED CELL DISTRIBUTION WIDTH 17.4 % (11.5-14.5); WHITE BLOOD COUNT 7.1 X10'3 (4.5-11.0)
[2024-03-11 06:02] LABS: ALANINE AMINOTRANSFERASE 52 U/L (12-78); ALBUMIN 2.2 G/DL (3.4-5.0); ALBUMIN/GLOBULIN RATIO 0.6 (1.1-1.5); ALKALINE PHOSPHATASE 60 IU/L (46-116); ANION GAP 9 (8-16); ASPARTATE AMINO TRANSFERASE 18 U/L (10-37); BILIRUBIN,TOTAL 0.6 MG/DL (0.1-1.0); BLOOD UREA NITROGEN 23 MG/DL (7-18); BUN/CREATININE RATIO 29.9 (10.0-20.0); CHLORIDE 102 MMOL/L (99-107); CREATININE 0.77 MG/DL (0.60-1.10); GLUCOSE 121 MG/DL (70-104); MAGNESIUM 2.1 MG/DL (1.5-2.4); POTASSIUM 3.9 MMOL/L (3.5-5.1); SODIUM 139 MMOL/L (135-145); TOTAL CARBON DIOXIDE 28.4 MMOL/L (24-32); TOTAL PROTEIN 5.8 G/DL (6.4-8.2); eCRCL 91 ML/MIN; eGFR > 90 ML/MIN
[2024-03-11] MEDS: furosemide 40mg/4ml inj IV SCH (08:35)
[2024-03-11] MEDS: HYDROchlorothiazide 12.5mg capsule PO SCH (08:43)
[2024-03-11] MEDS: spironolactone 50 MG tablet PO SCH (08:45)
[2024-03-12] VITALS (8 sets, daily range): BP systolic 119–138; BP diastolic 69–72; PULSE 52–80; RESP 18–24; TEMP 97.6–97.9; O2SAT 93–98
[2024-03-12 04:54] LABS: BASOPHILS % (AUTO) 0.3 % (0-1); EOSINOPHILS % (AUTO) 0 % (0-6); HEMATOCRIT 35.5 % (42.0-52.0); HEMOGLOBIN 12.3 g/dl (14.0-17.9); LYMPHOCYTES # (AUTO) 0.4 X10'3 (1.1-4.8); LYMPHOCYTES % (AUTO) 4.7 % (21-51); MEAN CORPUSCULAR HEMOGLOBIN 30.2 PG (27.0-31.0); MEAN CORPUSCULAR HGB CONC 34.7 g/dL (33.0-36.5); MEAN PLATELET VOLUME 6.7 FL (7.4-10.4); MONOCYTES # (AUTO) 0.2 X10'3 (0-0.9); MONOCYTES % (AUTO) 2.1 % (2-12); NEUTROPHILS # (AUTO) 8.8 X10'3 (1.8-7.7); NEUTROPHILS % (AUTO) 92.9 % (42-75); PLATELET COUNT 315 X10'3 (140-440); RED BLOOD COUNT 4.08 X10'6 (4.70-6.10); RED CELL DISTRIBUTION WIDTH 17.6 % (11.5-14.5); WHITE BLOOD COUNT 9.5 X10'3 (4.5-11.0)
[2024-03-12 05:12] LABS: ALANINE AMINOTRANSFERASE 47 U/L (12-78); ALBUMIN 2.2 G/DL (3.4-5.0); ALBUMIN/GLOBULIN RATIO 0.6 (1.1-1.5); ALKALINE PHOSPHATASE 60 IU/L (46-116); ANION GAP 7 (8-16); ASPARTATE AMINO TRANSFERASE 22 U/L (10-37); BILIRUBIN,TOTAL 0.6 MG/DL (0.1-1.0); BLOOD UREA NITROGEN 26 MG/DL (7-18); BUN/CREATININE RATIO 32.9 (10.0-20.0); CALCIUM 8.7 MG/DL (8.5-10.1); CHLORIDE 102 MMOL/L (99-107); CREATININE 0.79 MG/DL (0.60-1.10); GLUCOSE 160 MG/DL (70-104); MAGNESIUM 3.1 MG/DL (1.5-2.4); SODIUM 137 MMOL/L (135-145); TOTAL CARBON DIOXIDE 28.4 MMOL/L (24-32); TOTAL PROTEIN 5.9 G/DL (6.4-8.2); eCRCL 89 ML/MIN; eGFR > 90 ML/MIN
== END 2024-03-12 15:10 | DRG 177 ==
LOC: ER 13:18 → ED HOLD 15:40 → SUR 3N 19:32
PROVIDERS: ADMIT Nurse Practitioner Family; ATTEND Nurse Practitioner Family
PROC: B32T1ZZ Computerized Tomography (CT Scan) of Left Pulmonary Artery using Low Osmolar Contrast (ICD-10-PCS; principal; 2024-03-09)
PROC: B3201ZZ Computerized Tomography (CT Scan) of Thoracic Aorta using Low Osmolar Contrast (ICD-10-PCS; 2024-03-09)
PROC: B32S1ZZ Computerized Tomography (CT Scan) of Right Pulmonary Artery using Low Osmolar Contrast (ICD-10-PCS; 2024-03-09)
DX: J15.69 Pneumonia due to other Gram-negative bacteria (principal); I50.33 Acute on chronic diastolic (congestive) heart failure; J96.01 Acute respiratory failure with hypoxia; E87.3 Alkalosis; J44.0 Chronic obstructive pulmonary disease with (acute) lower respiratory infection; I82.611 Acute embolism and thrombosis of superficial veins of right upper extremity; J44.1 Chronic obstructive pulmonary disease with (acute) exacerbation; Z20.822 Contact with and (suspected) exposure to COVID-19; J15.9 Unspecified bacterial pneumonia; J43.9 Emphysema, unspecified; D64.9 Anemia, unspecified; Z87.01 Personal history of pneumonia (recurrent); Z86.711 Personal history of pulmonary embolism; Z85.46 Personal history of malignant neoplasm of prostate; Z87.891 Personal history of nicotine dependence; Z88.6 Allergy status to analgesic agent; Z79.899 Other long term (current) drug therapy; Z79.01 Long term (current) use of anticoagulants
CPT/HCPCS: 36415; 36600; 71045; 71275; 80048; 80053; 81001; 82803; 83605; 83735; 83880; 84145; 84484; 85007; 85018; 85025; 85379; 87040; 87081; 87502; 87503; 87811; 90732; 92508; 92616; 93005; 93970; 93971; 94640; 94760; 96374; 97161; 97530; 99285; A6212; A6590; G0378; J0713; J1940; J1956; J2919; J7030; J7040; Q9967

== ENCOUNTER 2024-07-13 13:41 | Emergency (ER) | payer OTHER, MEDICARE, MEDICAID ==
[~2024-07-13] VITALS: Ht 182.9 cm; Wt 82.7 kg
[~2024-07-13 13:41] MED LIST changes: +ACET-2119 PO; -AMLO2.5T2 PO; +APIX5TAB3 PO; +ATOR40TA PO; +BISA-79 PO; +BISA10SU60 RC; +DOCU-148 PO; -ESOM40CA PO; -FLUT1DIS20 INH; -FURO-150 PO; +GUAI600T45 PO; +HYDR-3965 PO; +HYDR-3973 PO; +IPRA3AMP31 IH; +MAGN400O6 PO; +MOME13HF11 INH; +NA P133E4 RC; -NICO1PAT36 TOP; +OMEP20TA23 PO; -PANT40TA54 PO; +POLY17PO10 PO; +PRED10TA PO; -TRAZ-256 PO; -WARF6TAB49 PO
[2024-07-13 13:46] VITALS: BP 128/59; PULSE 101; RESP 20; O2SAT 95
--- NOTE | 2024-07-13 16:05 | Physician Documentation ---
History of Present Illness ~ Chief Complaint: Constipation Stated Complaint: CONSTIPATION Time Seen by MD: 13:49 Primary Medical Doctor: None HPI The patient is Seen today with complaints of constipation. Patient states he has a bowel movement normally between every four and 14 days. Patient states he does have some lower abdominal discomfort and states he did use an enema last night with the passage of a small amount of hard stool. Patient has no other concern or complaint at this time. Medication Reconciliation Allergies: Coded Allergies: aspirin (Unverified Allergy, Unknown, 03/09/24) naproxen (Verified Allergy, Unknown, hives, swelling, 03/09/24) Scheduled Apixaban (Eliquis), 1 TAB PO Q12H, (Reported) Atorvastatin Calcium* (Lipitor*), 1 TAB PO HS, (Reported) Bisacodyl (Dulcolax), 4 TAB PO ONCE Docusate Sodium (Colace), 1 CAP PO Q12H, (Reported) Guaifenesin (Mucinex), 1 TAB PO Q12H, (Reported) Hydrochlorothiazide (Hydrochlorothiazide), 1 TAB PO DAILY, (Reported) Metoprolol Tartrate (Lopressor tablet), 25 MG PO BID, (Reported) Mometasone/Formoterol (Dulera 200 Mcg/5 Mcg Inhaler), 2 PUFFS INH Q12H, (Reported) Omeprazole Magnesium (Prilosec Otc), 20 MG PO DAILY, (Reported) Prednisone (Prednisone), 30 TAB PO DAILY, (Reported) Tiotropium [place] (Spiriva Respimat), 2 PUFFS PO DAILY, (Reported) Scheduled PRN Acetaminophen (Tylenol), 650 MG PO Q4H PRN for pain, (Reported) Albuterol Sulfate (Proair Hfa), 1 PUFFS IH Q4H PRN for SOB or wheezing, (Reported) Bisacodyl (Dulcolax), 1 SUPP RC DAILY PRN for constipation, (Reported) Hydrocodone Bit/Acetaminophen 5/325 MG ([place] 5/325 MG), 1 TAB PO Q4H PRN for pa in, (Reported) Hydrocodone Bit/Acetaminophen (Hydrocodone-Apap 10-325 Tablet), 1 TABLET PO Q4H PRN for pain, (Reported) Ipratropium/Albuterol Sulfate (Duoneb 2.5-0.5 Mg/3 Ml Soln), 3 ML IH Q4H PRN for SOB or wheezing, (Reported) Magnesium Hydroxide (Milk of Magnesia), 30 ML PO DAILY PRN for constipation, (Reported) Na Phos,M-B/Na Phos,Di-Ba* (Fleet's Enema*), 1 BOTTLE RC DAILY PRN for constipation, (Reported) Polyethylene Glycol 3350* (Miralax*), 1 PKT PO Q8H PRN for constipation, (Reported) Past Medical History Past Medical History: COPD, Emphysema, Constipation Past Surgical History: no surgical history Patient History: FH: lung cancer GRANDFATHER OR GRANDMOTHER MOTHER FH: throat cancer GRANDFATHER OR GRANDMOTHER Smoking Status: Former smoker Alcohol Use: Other Drug Use: none Lives with: Other Lives In: [facility] Review of Systems Constitutional: Denies: chills, fever, weakness Eyes: Denies: pain, blurred vision ENT: Denies: ear pain, nose pain, throat pain, mouth pain Respiratory: Denies: cough, shortness of breath Cardiovascular: Denies: chest pain, palpitations Gastrointestinal: Denies: abdominal pain, nausea, vomiting Genitourinary: Denies: burning, dysuria Male Genitalia: Denies: penile discharge, testicular pain Neurological: Denies: headache, dizziness Musculoskeletal: Denies: pain, swelling Integumentary: Denies: rash, lesions Allergic/Immunologic: Denies: hives, itching Hematologic/Lymphatic: Denies: no symptoms reported Psychiatric: Denies: depression, anxiety Physical Exam Vital Signs: Temperature: 97.9, Source: Temporal, Heart Rate: 101, Respiratory Rate: 20, BP: 128/59, Pulse Oximetry: 95, Weight: 82.730 Oxygen Flow Rate: 2.5 Physical Exam General: Awake and Alert, no acute distress. HEENT: Conjunctiva pink, Sclera clear, Mucus Membranes moist. Neck: Supple without masses and tenderness. Resp: Unlabored. Lungs clear to auscultation bilaterally. Heart: Regular Rate and rhythm, normal S1 and S2 without murmur, rub or gallop. Abdomen: Abdomen on exam is soft, nondistended, mild tenderness to palpation of the lower abdomen, no rebound tenderness Extremities: No cyanosis,clubbing or edema. Skin: Warm and Dry. Progress Results/Orders Results/Orders Orders - ROB KENNEY Cristel [place] Polyethylene Glycol 3350 Pkt (Miralax Pa (07/13/24 21:00) Completed Orders - ROB KENNEY Cristel [place] Methylnaltrexone Br Inj (Relistor Inj (07/13/24 16:04) Sennosides/Docusate Sodium Tab (Senna-S (07/13/24 16:05) Medications Received in ER Medications (Trade) Dose Ordered Sig/Renetta Route PRN Reason Start Time Stop Time Status Last Admin Dose Admin (Relistor inj SubQ only) 12 mg ONCE STAT SQ 07/13/24 16:04 07/13/24 16:06 DC 07/13/24 16:26 12 MG (Senna-S tablet) 2 tab ONCE STAT PO 07/13/24 16:05 07/13/24 16:07 DC 07/13/24 16:26 2 TAB Vital Signs 07/13/24 13:46 Temp 97.9 Pulse 101 Resp 20 B/P (MAP) 128/59 Pulse Ox 95 O2 Flow Rate 2.5 Medical Decision Making Findings The patient is Seen today with complaints of constipation. Patient states he has a bowel movement normally between every four and 14 days. Patient states he does have some lower abdominal discomfort and states he did use an enema last night with the passage of a small amount of hard stool. Patient has no other concern or complaint at this time. Patient was given Relistor subcutaneous, MiraLax oral, senna tabs x2 in the ED today. Prescription for MiraLax, senna, and docusate sodium sent to patient's pharmacy to be taken as directed. Patient will return to ED in 2-3 days if no better as needed sooner. Patient will continue enema at home as well. Shared decision-making utilized today. Departure Disposition: HOME / SELF CARE / HOMELESS (ERASED) Impression: Primary Impression: Constipation Qualified Codes: K59.00 - Constipation, unspecified Condition: Improved Discharge Instructions: Constipation, Adult Additional Instructions: Patient was given Relistor subcutaneous, MiraLax oral, senna tabs x2 in the ED today. Prescription for MiraLax, senna, and docusate sodium sent to patient's pharmacy to be taken as directed. Patient will return to ED in 2-3 days if no better as needed sooner. Patient will continue enema at home as well. Shared decision-making utilized today. Referrals: NO PRIMARY CARE PROVIDER (PCP) Prescriptions Polyethylene Glycol 3350 (Miralax) 17 Gram/Dose Powder 17 GM PO BID for constipation, #527 GM 0 Refills dissolve in water Prov: ROB KENNEY 07/13/24 Sennosides/Docusate Sodium (Senna Plus 8.6-50 mg Tablet) 8.6 Mg-50 Mg Tablet 2 TAB PO TID for 30 Days, #180 TAB 0 Refills Prov: ROB KENNEY 07/13/24 Signature Scribe Signature: No scribe Attestation: No scribe ROB KENNEY July 13, 2024 16:05
[2024-07-13] MEDS: sennosides/docusate sodium tablet PO STA (16:26)
[2024-07-13] MEDS: methylnaltrexone br 12mg/0.6ml inj***SubQ only SQ STA (16:26)
[2024-07-13] MEDS ORDERED: SENN-302 PO (17:25)
[2024-07-13] MEDS ORDERED: POLY119P2 PO (17:25)
[2024-07-13 17:39] VITALS: TEMP 97.9
[2024-07-13] MEDS ORDERED: polyethylene glycol 3350 17gm powd pack PO SCH (21:00)
== END 2024-07-13 17:41 | disposition home or self-care (01) ==
LOC: ER 13:42
DX: K59.00 Constipation, unspecified (principal); J43.9 Emphysema, unspecified; Z87.891 Personal history of nicotine dependence; Z88.6 Allergy status to analgesic agent; Z88.8 Allergy status to other drugs, medicaments and biological substances
CPT/HCPCS: 96372; 99283; J2212

== ENCOUNTER 2024-08-10 19:54 | Inpatient (IN) | payer OTHER, MEDICARE, MEDICAID ==
[~2024-08-10] VITALS: Ht 182.9 cm; Wt 77.3 kg
[~2024-08-10 19:54] MED LIST changes: +POLY119P2 PO; +SENN-302 PO
--- NOTE | 2024-08-10 20:07 | ELECTROCARDIOGRAPH REPORT ---
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
[2024-08-10] MEDS: methylPREDNISolone sod succ 125mg/2ml vial IV ONE (20:19)
[2024-08-10 20:30] LABS: EOSINOPHILS % (AUTO) 0.1 % (0-6); LYMPHOCYTES # (AUTO) 1.3 X10'3 (1.1-4.8)
[2024-08-10 20:32] LABS: BASOPHILS % (AUTO) 0.2 % (0-1); HEMATOCRIT 43.3 % (42.0-52.0); HEMOGLOBIN 14.2 g/dl (14.0-17.9); LYMPHOCYTES % (AUTO) 9.5 % (21-51); MEAN CORPUSCULAR HEMOGLOBIN 27.6 PG (27.0-31.0); MEAN CORPUSCULAR HGB CONC 32.9 g/dL (33.0-36.5); MONOCYTES # (AUTO) 0.9 X10'3 (0-0.9); MONOCYTES % (AUTO) 6.8 % (2-12); NEUTROPHILS # (AUTO) 11.4 X10'3 (1.8-7.7); NEUTROPHILS % (AUTO) 83.4 % (42-75); PLATELET COUNT 261 X10'3 (140-440); RED BLOOD COUNT 5.16 X10'6 (4.70-6.10); RED CELL DISTRIBUTION WIDTH 17.4 % (11.5-14.5); WHITE BLOOD COUNT 13.7 X10'3 (4.5-11.0)
[2024-08-10 20:41] LABS: ALBUMIN/GLOBULIN RATIO 0.6 (1.1-1.5); ANION GAP 9 (8-16); ASPARTATE AMINO TRANSFERASE 16 U/L (10-37); BILIRUBIN,TOTAL 0.7 MG/DL (0.1-1.0); BLOOD UREA NITROGEN 24 MG/DL (7-18); BUN/CREATININE RATIO 16.7 (10.0-20.0); CALCIUM 9.6 MG/DL (8.5-10.1); CHLORIDE 98 MMOL/L (99-107); CREATININE 1.44 MG/DL (0.60-1.10); GLUCOSE 120 MG/DL (70-104); POTASSIUM 4.7 MMOL/L (3.5-5.1); SODIUM 133 MMOL/L (135-145); TOTAL PROTEIN 8.3 G/DL (6.4-8.2); eCRCL 48 ML/MIN; eGFR 48 ML/MIN
[2024-08-10 20:42] LABS: ALANINE AMINOTRANSFERASE 14 U/L (12-78); ALKALINE PHOSPHATASE 101 IU/L (46-116)
[2024-08-10 20:48] LABS: PRO BRAIN NATRIURETIC PEPTIDE 492 PG/ML (0-450)
[2024-08-10 20:50] VITALS: PULSE 111
[2024-08-10] MEDS: albuterol 2.5 MG/3 ML nebule NEB ONE (20:56)
[2024-08-10] MEDS: ipratropium/albuterol 3ml nebule NEB ONE (20:56)
[2024-08-10 21:00] VITALS: PULSE 107; RESP 22; O2SAT 95
--- NOTE | 2024-08-10 21:14 | RADIOLOGY REPORT ---
EXAM: DI CHEST,SINGLE VIEW CLINICAL HISTORY: SOB TECHNIQUE: Single AP view of the chest WID: COMPARISON: DI CHEST,SINGLE VIEW on DOS: 03/09/24 FINDINGS: Lines and tubes: None Chest: The heart size and pulmonary vasculature is within normal limits. Calcified plaque projects over the aortic arch. Mixed airspace opacities in the left lung base. No pneumothorax or pleural effusion. The osseous structures are grossly intact. IMPRESSION: Mixed airspace opacities in the left lung base which could reflect pneumonia.
--- NOTE | 2024-08-10 21:16 | Physician Documentation ---
History of Present Illness ~ Chief Complaint: Shortness of Breath Stated Complaint: SOB Time Seen by MD: 19:59 Primary Medical Doctor: None Source: patient, EMS, EMS notes reviewed Mode of Arrival: EMS Exam Limitations: no limitations HPI Chief Complaint: Shortness a breath Caveat: None Independent Historians: Paramedics History of Present Illness: Patient is a 73-year-old man brought in by paramedics from home for shortness of breath that began earlier today. Patient was finishing an albuterol nebulizer treatment at home with the paramedics arrived. Paramedics found his pulse ox to be 96% on [address] him on 4 L. patient denies any chest pain. Patient states that he has occasional cough with thick yellow-green sputum. Denies any fever. No nausea vomiting diarrhea, no abdominal pain. Patient's shortness breath is worse with any little exertion. Review of systems: All systems were reviewed and are negative except for what is indicated in the history of present illness. Past Medical History: History of PE, history of pneumonia, congestive heart failure, COPD, anemia Past Surgical History: Noncontributory Social History: History of tobacco use, no tobacco use since 2022, occasional beer Medications: Reviewed as documented Nursing Notes Allergies: Reviewed as documented in Nursing Notes Medication Reconciliation Allergies: Coded Allergies: aspirin (Unverified Allergy, Unknown, 03/09/24) naproxen (Verified Allergy, Unknown, hives, swelling, 03/09/24) Scheduled Atorvastatin Calcium* (Lipitor*), 1 TAB PO HS, (Reported) Docusate Sodium (Colace), 1 CAP PO Q12H, (Reported) Guaifenesin (Mucinex), 1 TAB PO Q12H, (Reported) Hydrochlorothiazide (Hydrochlorothiazide), 1 TAB PO DAILY, (Reported) Metoprolol Tartrate (Lopressor tablet), 25 MG PO BID, (Reported) Mometasone/Formoterol (Dulera 200 Mcg/5 Mcg Inhaler), 2 PUFFS INH Q12H, (Reported) Omeprazole Magnesium (Prilosec Otc), 20 MG PO DAILY, (Reported) Sennosides/Docusate Sodium (Senna Plus 8.6-50 mg Tablet), 2 TAB PO TID Tiotropium [place] (Spiriva Respimat), 2 PUFFS PO DAILY, (Reported) Scheduled PRN Acetaminophen (Tylenol), 650 MG PO Q4H PRN for pain, (Reported) Albuterol Sulfate (Proair Hfa), 1 PUFFS IH Q4H PRN for SOB or wheezing, (Reported) Hydrocodone Bit/Acetaminophen 5/325 MG ([place] 5/325 MG), 1 TAB PO Q4H PRN for pain, (Reported) Hydrocodone Bit/Acetaminophen (Hydrocodone-Apap 10-325 Tablet), 1 TABLET PO Q4H PRN for pain, (Reported) Ipratropium/Albuterol Sulfate (Duoneb 2.5-0.5 Mg/3 Ml Soln), 3 ML IH Q4H PRN for SOB or wheezing, (Reported) Discontinued Medications Apixaban (Eliquis), 1 TAB PO Q12H, (Reported) Discontinued Reason: Other Bisacodyl (Dulcolax), 1 SUPP RC DAILY PRN for constipation, (Reported) Discontinued Reason: Other Bisacodyl (Dulcolax), 4 TAB PO ONCE Discontinued Reason: Other Magnesium Hydroxide (Milk of Magnesia), 30 ML PO DAILY PRN for constipation, (Reported) Discontinued Reason: Other Na Phos,M-B/Na Phos,Di-Ba* (Fleet's Enema*), 1 BOTTLE RC DAILY PRN for constipation, (Reported) Discontinued Reason: patient no longer taking Polyethylene Glycol 3350 (Miralax), 17 GM PO BID Discontinued Reason: Other Polyethylene Glycol 3350* (Miralax*), 1 PKT PO Q8H PRN for constipation, (Re ported) Discontinued Reason: Other Prednisone (Prednisone), 30 TAB PO DAILY, (Reported) Discontinued Reason: Other Past Medical History Past Medical History: COPD, Emphysema, Constipation Past Surgical History: no surgical history Patient History: FH: lung cancer GRANDFATHER OR GRANDMOTHER MOTHER FH: throat cancer GRANDFATHER OR GRANDMOTHER Alcohol Use: Other Drug Use: none Lives with: Other Lives In: SNF Review of Systems All Other Systems at this time: Reviewed and Negative ROS Patient denies any other acute symptoms other than above. All other systems are negative Physical Exam Vital Signs: RN Vital Signs have been reviewed: Yes, Temperature: 99.6, Source: Oral, Heart Rate: 107, Respiratory Rate: 22, BP: 121/75, Pulse Oximetry: 95, Weight: 77.270 Pulse Oximetry Reflects: adequate oxygenation Physical Exam General Appearance: MODERATE DISTRESS, ACUTELY AND CHRONICALLY ILL-APPEARING HEENT: Normal OP, moist oral mucosa, PERRL, EOMI Neck: supple, normal ROM, trachea midline Pulmonary: MILD RESPIRATORY DISTRESS, TACHYPNEIC, BREATH SOUNDS ARE DISTANT BILATERALLY WITH BIBASILAR CRACKLES Cardiac: RRR, no murmur, rub or gallop, GI: nondistended, soft, nontender, normal bowel sounds, no guarding, no rebound Extremities: normal ROM, no swelling, non-tender Skin: intact, dry, warm, no rashes Neuro: AAOx3, speech is clear, no focal motor weakness Psych: normal affect, good eye contact, no apparent hallucination, normal speech Progress Results/Orders Results/Orders Orders - SAMM BLAKLEY MD Chest,Single View (08/10/24 19:59) Monitor (08/10/24 19:59) Saline Lock (08/10/24 19:59) Svn Treatment (08/10/24 19:59) Hs Troponin I W Calculations (08/10/24 21:59) Hs Troponin I W Calculations (08/10/24 22:59) Page Hospitalist (08/10/24 21:24) Fill Out Med Reconciliation (08/10/24 21:24) Azithromycin/Ns 500mg/250ml (Zithromax/N (08/10/24 21:30) Completed Orders - SAMM BLAKELY MD Electrocardiogram (08/10/24 19:59) Cbc/Diff (08/10/24 19:59) Chest,Single View (08/10/24 19:59) Methylprednisolone Sod Succ (Solumedrol (08/10/24 20:00) PBNP (08/10/24 19:59) Hs Troponin I W Calculations (08/10/24 19:59) Ipratropium/Albuterol Nebule (Ipratrop/A (08/10/24 20:00) Albuterol 2.5mg/3ml Nebule (Proventil 2. (08/10/24 20:00) CMP (08/10/24 20:00) Ceftriaxone Im Kit W/Lidocaine (Rocephin (08/10/24 21:30) Medications Received in ER Medications (Trade) Dose Ordered Sig/Renetta Route PRN Reason Start Time Stop Time Status Last Admin Dose Admin (SoluMEDROL 125mg inj) 125 mg ONCE ONCE IV 08/10/24 20:00 08/10/24 20:02 DC 08/10/24 20:19 125 MG (ipratrop/ albuterol 0.5-3(2.5) MG/3ml nebule) 3 ml ONCE ONCE NEB 08/10/24 20:00 08/10/24 20:01 DC 08/10/24 20:56 3 ML (Proventil 2.5 MG/3ML nebule) 2.5 mg ONCE ONCE NEB 08/10/24 20:00 08/10/24 20:02 DC 08/10/24 20:56 2.5 MG Azithromycin 250 ml @ 250 mls/hr ONCE ONCE IV 08/10/24 21:30 08/10/24 22:29 08/10/24 21:48 250 MLS/HR (Rocephin 1GM IM kit (w/lidocaine diluent)) 1,000 mg ONCE ONCE IM 08/10/24 21:30 08/10/24 21:32 DC 08/10/24 21:43 1,000 MG Vital Signs 08/10/24 08/10/24 08/10/24 19:57 20:50 21:00 Temp 99.6 Pulse 116 111 107 Resp 20 22 B/P (MAP) 121/75 Pulse Ox 96 95 O2 Delivery Nasal Cannula* Nasal Cannula* O2 Flow Rate 3 3 FiO2 32 32 Laboratory Tests Test 08/10/24 20:13 White Blood Count 13.7 H Red Blood Count 5.16 Hemoglobin 14.2 Hematocrit 43.3 Mean Corpuscular Volume 84.0 Mean Corpuscular Hemoglobin 27.6 Mean Corpuscular Hemoglobin Concent 32.9 L Red Cell Distribution Width 17.4 H Platelet Count 261 Mean Platelet Volume 8.0 Neutrophils (%) (Auto) 83.4 H Lymphocytes (%) (Auto) 9.5 L Monocytes (%) (Auto) 6.8 Eosinophils (%) (Auto) 0.1 Basophils (%) (Auto) 0.2 Neutrophils # (Auto) 11.4 H Lymphocytes # (Auto) 1.3 Monocytes # (Auto) 0.9 Eosinophils # (Auto) 0.0 Basophils # (Auto) 0.0 CBC Comment Sodium Level 133 L Potassium Level 4.7 Chloride Level 98 L Carbon Dioxide Level 26.0 Anion Gap 9 Blood Urea Nitrogen 24 H Creatinine 1.44 H Estimated GFR/1.73 m2 48 BUN/Creatinine Ratio 16.7 Glucose Level 120 H Calcium Level 9.6 Total Bilirubin 0.7 Aspartate Amino Transf (AST/SGOT) 16 Alanine Aminotransferase (ALT/SGPT) 14 Alkaline Phosphatase 101 Troponin I High Sensitivity 7 Pro-B-Type Natriuretic Peptide 492 H Total Protein 8.3 H Albumin 3.0 L Globulin 5.3 H Albumin/Globulin Ratio 0.6 L Chemistry Comments Medical Decision Making Additional info obtained from: old records Findings Differential diagnosis includes but is not limited to: ACUTE COPD EXACERBATION, ACUTE ON CHRONIC RESPIRATORY FAILURE, ACUTE ON CHRONIC CONGESTIVE HEART FAILURE, PNEUMONIA, PULMONARY EMBOLUS, ACUTE KIDNEY INJURY, DEHYDRATION EKG independent interpretation: Performed at 8:05 p.m.. Sinus tachycardia, heart rate 115, right bundle-branch block, left posterior hemiblock, normal axis. Chest x-ray, single view, indication: Shortness a breath Independent interpretation: Infiltrates left lower lobe, normal mediastinum, no cardiomegaly, infiltrates in the left lower lobe suspicious for pneumonia. No cephalization. Laboratory data independent interpretation: CBC: Mild leukocytosis of 13.7 CMP: BUN and creatinine are mildly elevated at 24 and 1.44. 1st troponin: 7 Emergency department course/medical decision-making: Patient presents with the acute on chronic respiratory failure. Although the patient does not appear to be requiring more oxygen at rest he is tachypneic. There was concern for pneumonia in the left lower lobe based on the chest x-ray. Patient will be given IV Rocephin follow up by IV Zithromax. Patient is given Solu-Medrol 125 mg IV. Patient is also given a DuoNeb. We will recommend admission for IV antibiotics and continued breathing treatments and respiratory support. Test results and treatment plan and need for admission discussed with the patient. Consultation/communications: 9:43 p.m.: Case discussed with the hospitalist resident, Dr. Martinez. He will evaluate the patient for admission Departure Time of Disposition: 21:45 Disposition: 09 ADMITTED INPATIENT Admission Level of Care: Med/Surg Impression: Primary Impression: Acute exacerbation of chronic obstructive airways disease Additional Impression: Left lower lobe pneumonia Qualified Codes: J18.9 - Pneumonia, unspecified organism Education Educated: Patient Educated regarding: diagnosis, treatment Signature Scribe Signature: No scribe Attestation: No scribe SAMM BLAKELY MD Aug 10, 2024 21:15
[2024-08-10] MEDS: CefTRIAXone 1000mg IM Kit (w/lidocaine diluent) IM ONE (21:43)
[2024-08-10] MEDS: azithromycin/NS 500mg/250ml 250 ML IV ONE (21:48)
[2024-08-10] MEDS ORDERED: potassium Cl 40MEQ/1/2NS 520ml 520 ML IV PRN (22:10)
[2024-08-10] MEDS ORDERED: magnesium sulf-water 4G/100mL 100 ML IV PRN (22:10)
[2024-08-10] MEDS ORDERED: magnesium Cl slow-release 64mg tablet PO PRN (22:10)
[2024-08-10] MEDS ORDERED: ondansetron/PF 4mg/2ml inj IV PRN (22:10)
[2024-08-10] MEDS ORDERED: potassium Cl 20 mEq SR tablet PO PRN ×2 (22:10)
[2024-08-10] MEDS ORDERED: magnesium sulf-water 2g/50mL 50 ML IV PRN (22:10)
[2024-08-10] MEDS ORDERED: acetaminophen 325mg tablet PO PRN (22:10)
--- NOTE | 2024-08-10 22:14 | HISTORY AND PHYSICAL-Residence ---
History & Physical Providers to CC Resident Creating Document: DILLAN EASTMANYOLI ~ History of Present Illness Primary Medical Doctor: None Reason for Admit\Complaint: shortness of breath History of Present Illness This is a 73-year-old male with a history of COPD, CHF with preserved ejection fraction, and h/o pulmonary embolism, currently on home oxygen at 2.5 L and Eliquis for PA. He presents with progressively worsening shortness of breaths that became worse this morning. He also reports increased sputum production, described as yellow green, over the past few days. He states that his oxygen requirement has increased from 2.5-3.5 L but continues to feel short of breath. Paramedics placed him on 4 L oxygen during transport. He denies chest pain, diaphoresis, or other associated symptoms. Notably, he was hospitalized in February 2024 for acute on chronic respiratory failure secondary to CHF exacerbation. His smoking history includes 40 pack years, and he quit smoking in 2022. He ambulates using a walker and lives alone. I have discussed advance care planning with the patient. The patient has decided on a full code status. Allergies: Coded Allergies: aspirin (Unverified Allergy, Unknown, 03/09/24) naproxen (Verified Allergy, Unknown, hives, swelling, 03/09/24) Home Medications Home Medications Active Senna Plus 8.6-50 mg Tablet (Sennosides/Docusate Sodium) 8.6 Mg-50 Mg Tablet 2 Tab PO TID 30 Days Reported [place] 5/325 MG (Acetaminophen/Hydrocodone Bitart) 5 Mg/325 Mg Tablet 1 Tab PO Q4H PRN Hydrocodone-Apap 10-325 Tablet (Acetaminophen/Hydrocodone Bitart) 10mg/325mg Tablet 1 Tablet PO Q4H PRN Tylenol (Acetaminophen) 325 Mg Tablet 650 Mg PO Q4H PRN Duoneb 2.5-0.5 Mg/3 Ml Soln (Ipratropium/Albuterol Sulfate) 0.5 Mg-3 Mg (2.5 Mg Base)/3 Ml Ampul.neb 3 Ml IH Q4H PRN Lipitor* (Atorvastatin Calcium) 40 Mg Tablet 1 Tab PO HS Colace (Docusate Sodium) 100 Mg Capsule 1 Cap PO Q12H Mucinex (Guaifenesin) 600 Mg Tablet.sa 1 Tab PO Q12H Dulera 200 Mcg/5 Mcg Inhaler (Mometasone/Formoterol) 200 Mcg-5 Mcg/Actuation Hfa.aer.ad 2 Puffs INH Q12H Prilosec Otc (Omeprazole Magnesium) 20 Mg Tablet.dr 20 Mg PO DAILY Lopressor tablet (Metoprolol Tartrate) 25 Mg Tablet 25 Mg PO BID 12.5 MG = 1/2 TABLET HOLD FOR SBP LESS THAN 100 OR PULSE BELOW 60 Hydrochlorothiazide 12.5 Mg Tablet 1 Tab PO DAILY 30 Days Spiriva Respimat (Tiotropium [place]) 4 Gm Mist.inhal 2 Puffs PO DAILY Proair Hfa (Albuterol Sulfate) 1 Puff Inh 1 Puffs IH Q4H PRN Past Medical History Past Medical History CHF with preserved ejection fraction, COPD, PE Family History Family History: FH: lung cancer GRANDFATHER OR GRANDMOTHER MOTHER FH: throat cancer GRANDFATHER OR GRANDMOTHER Past Social History Social History Comment Lives alone, ambulates using walker, friend next door helps with chores and food. Forty pack year smoking history, consumes alcohol occasionally, denies recreational drugs Smoking: Cigarettes Alcohol Use: Other Drug Use: None Lives with: Other Lives In: SNF ROS All Other Systems: Reviewed and Negative ROS As stated above in the HPI, otherwise all systems are reviewed and negative. Exam Vitals: Vital Signs Date Time Temp Pulse Resp B/P (MAP) Pulse Ox O2 Delivery O2 Flow Rate FiO2 08/10/24 21:00 107 22 95 Nasal Cannula* 3 32 08/10/24 19:57 99.6 121/75 General: Awake and Alert, no acute distress. HEENT: Conjunctiva pink, Sclera clear, Mucus Membranes moist. Neck: Supple without masses and tenderness. Resp: Diffuse expiratory wheezing, more prominent on left side Heart: Irregular heart rhythm Abdomen: Soft and non tender no organomegaly Extremities: No cyanosis,clubbing or edema. Skin: Warm and Dry. Diagnostic Data Last Recorded Lab Results: 08/10/24201208/10/242012 Advance Care Planning Advanced Care plannin - 30 Minutes Additional Plan Acute on chronic hypoxemic respiratory failure Likely secondary to COPD exacerbation and community-acquired bacterial pneumonia On home oxygen; 2.5 L, now requiring 3 L for oxygenation No signs of volume overload or pulmonary congestions CXR Maintain oxygen saturation between 89-92%; on 3 L supplemental O2 via nasal canula, use BiPAP if needed Solu-Medrol 125 mg IV bolus given Solu-Medrol 40 Mg IV twice daily Ceftriaxone 1 g IV daily Azithromycin 500 mg IV daily DuoNeb nebulization every 4 hours as scheduled and every 4 hours as needed Incentive spirometry Wells' Score is 3 (HR + h/o PE), Ordered D-dimer, will proceed with CTA if elevated Ordered COVID, influenza a and B, and RSV, please follow Acute kidney injury, likely prerenal; renal tubular stasis Creatinine 1.44, Baseline in February was normal Monitor BMP daily NS 50 mL/hours Follow urine sodium, creatinine, and osmolality Mild Hyponatremia Likely multifactorial; infection, Lasix at home CHFp EF - not decompensated Reconcile home medications Hyperlipidemia Continue atorvastatin Follow lipid panel Code status: Full code DVT prophylaxis: [facility] Resident Pt was seen and discussed with the resident elderly man with COPD and some left lower lobe infiltrate started on abx for PNA on Nebs Duoneb for COPD I asked to add Pulmicort BID contd solumedrol check trop and EKG 2 sets six hours apart we will follow Date of Service: Aug 10, 2024 Billing Provider: OSIEL CHAN MD, SHAMS, RES Aug 10, 2024 22:14 OSIEL CHAN MD Aug 11, 2024 03:00
[2024-08-10] MEDS ORDERED: ipratropium/albuterol 3ml nebule NEB PRN (22:30)
[2024-08-10] MEDS: normal saline 1000ml 1,000 ML IV SCH (22:54)
[2024-08-10] MEDS: ipratropium/albuterol 3ml nebule NEB SCH (23:00)
[2024-08-10] MEDS: apixaban 5mg tablet PO SCH (23:14)
[2024-08-10 23:29] VITALS: PULSE 109; RESP 22; O2SAT 97
[2024-08-10 23:38] VITALS: PULSE 105; RESP 22
[2024-08-10 23:47] LABS: CHOL/HDL RATIO 1.8 (0.00-4.99); CHOLESTEROL 114 MG/DL (0-200); HDL CHOLESTEROL 65 MG/DL (35-60); LDL CHOLESTEROL 38 MG/DL (50-100); THYROID STIMULATING HORMONE 0.71 ulU/ml (0.34-4.50); TRIGLYCERIDES 39 MG/DL (20-135)
[2024-08-11] VITALS (19 sets, daily range): BP systolic 103–128; BP diastolic 56–72; PULSE 83–111; RESP 14–24; TEMP 97.7–98.2; O2SAT 90–96
[2024-08-11 00:22] LABS: D-DIMER 1.61 MG/L FEU (0-0.50)
[2024-08-11] MEDS ORDERED: iohexol 350MG/ML 100ml bottle IV ONE (01:57)
[2024-08-11] MEDS: HYDROcodone/acetaminophen 10/325mg tab PO PRN (02:13)
--- NOTE | 2024-08-11 03:09 | RADIOLOGY REPORT ---
CTA Chest with intravenous contrast INDICATION: shortness of breath, elevated d-dimer COMPARISON: CT CTA CHEST PE W/ IV CONTRAST on DOS: 03/09/24, CT CTA CHEST PE on DOS: 01/20/24 TECHNIQUE: Multidetector spiral CTA of the chest was performed of the chest with intravenous contrast . PULMONARY ANGIOGRAPHY PROTOCOL was utilized using a bolus-tracking technique centered on the main p ulmonary artery. Axial, coronal and sagittal multiplanar and MIP reformats were performed. Radiation Dose : 1. Chest: CTDI volume is 15.51 mGy. Dose-length product is 612.47 mGy*cm The dose indicators for CT are the volume Computed Tomography (CT) Dose Index (CTDIvol) and the Dose Length Product (DLP), and are measured in units of mGy and mGy-cm, respectively. These indicators are not patient dose, but values generated from the CT scanner acquisition factors. The report includes radiation exposure data for exposures received during this examination. Findings: Pulmonary artery: No pulmonary embolism. The main pulmonary artery measures 2.4 cm and the ascending aorta measures 3.7 cm. Atherosclerotic va scular calcifications. Lower neck: Normal thyroid. Lungs: Moderate patchy left lower lobe and lingular pulmonary infiltrate. No evidence of effusion or pneumothorax. Heart/Vascular Structures: Normal heart size. No pericardial effusion. Lymph Nodes: No adenopathy Musculoskeletal: No acute osseous abnormality. Soft tissues: Normal. Upper abdomen: Limited portions of the upper abdomen are unremarkable. Benign-appearing right hepatic lobe cyst measuring 1.1 cm. IMPRESSION: 1. No pulmonary embolism. 2. Left lower lobe and lingular pulmonary infiltrate consistent with pneumonia.
[2024-08-11 06:08] LABS: BASOPHILS % (AUTO) 0 % (0-1); EOSINOPHILS % (AUTO) 0 % (0-6); HEMATOCRIT 34.9 % (42.0-52.0); HEMOGLOBIN 11.9 g/dl (14.0-17.9); LYMPHOCYTES # (AUTO) 0.4 X10'3 (1.1-4.8); LYMPHOCYTES % (AUTO) 4.5 % (21-51); MEAN CORPUSCULAR HEMOGLOBIN 27.9 PG (27.0-31.0); MEAN CORPUSCULAR HGB CONC 34.1 g/dL (33.0-36.5); MEAN CORPUSCULAR VOLUME 81.9 FL (78-98); MEAN PLATELET VOLUME 7.6 FL (7.4-10.4); MONOCYTES # (AUTO) 0.1 X10'3 (0-0.9); MONOCYTES % (AUTO) 0.9 % (2-12); NEUTROPHILS % (AUTO) 94.6 % (42-75); PLATELET COUNT 308 X10'3 (140-440); RED BLOOD COUNT 4.27 X10'6 (4.70-6.10); RED CELL DISTRIBUTION WIDTH 17.2 % (11.5-14.5); WHITE BLOOD COUNT 9.5 X10'3 (4.5-11.0)
[2024-08-11 06:19] LABS: ALANINE AMINOTRANSFERASE 14 U/L (12-78); ALBUMIN 2.5 G/DL (3.4-5.0); ALBUMIN/GLOBULIN RATIO 0.5 (1.1-1.5); ALKALINE PHOSPHATASE 88 IU/L (46-116); ANION GAP 12 (8-16); ASPARTATE AMINO TRANSFERASE 13 U/L (10-37); BILIRUBIN,TOTAL 0.4 MG/DL (0.1-1.0); BLOOD UREA NITROGEN 22 MG/DL (7-18); BUN/CREATININE RATIO 17.7 (10.0-20.0); CALCIUM 8.9 MG/DL (8.5-10.1); CHLORIDE 99 MMOL/L (99-107); CREATININE 1.24 MG/DL (0.60-1.10); GLUCOSE 164 MG/DL (70-104); POTASSIUM 3.8 MMOL/L (3.5-5.1); SODIUM 134 MMOL/L (135-145); TOTAL CARBON DIOXIDE 22.9 MMOL/L (24-32); TOTAL PROTEIN 7.3 G/DL (6.4-8.2); eCRCL 56 ML/MIN; eGFR 57 ML/MIN
[2024-08-11] MEDS: metoprolol tartrate 12.5mg (1/2 tablet) PO SCH (07:50)
[2024-08-11] MEDS: methylPREDNISolone sod succ 125mg/2ml vial IV SCH (07:51)
[2024-08-11] MEDS: K and/or MAG REPLACEMENT MC SCH (08:00)
[2024-08-11 08:37] LABS: BILIRUBIN,URINE NEGATIVE (Neg); CLARITY,URINE CLOUDY (Clear); COLOR,URINE YELLOW (Yellow); GLUCOSE, URINE NEGATIVE (Neg); KETONES,URINE NEGATIVE (Neg); LEUKOCYTE ESTERASE ,URINE MODERATE (Neg); NITRITES, URINE NEGATIVE (Neg); OCCULT BLOOD,URINE MODERATE (Neg); PROTEIN,URINE TRACE mg/dl (Neg); UROBILINOGEN,URINE 0.2 E.U/dL (0.2-1.0)
[2024-08-11 08:48] LABS: UA COLLECTION TYPE NON-SPECIFIED
[2024-08-11 08:49] LABS: BACTERIA,URINE 1+ /HPF (Neg); SQUAMOUS EPITHELIAL CELL,UR FEW /LPF (FEW); WBC,URINE TNTC /HPF (0-4)
[2024-08-11 08:50] LABS: AMORPHOUS URATES 1+
[2024-08-11] MEDS ORDERED: ipratropium/albuterol 3ml nebule NEB PRN (15:15)
--- NOTE | 2024-08-11 15:21 | PROGRESS NOTE- Residence ---
Progress Note - Resident Providers to CC Resident Creating Document: ETHAN SEN, RES ~ Antibiotic Timeout Antibiotic Ordered?: Yes Subjective The patient has been evaluated at the bedside. Currently at his baseline oxygen 2 L. reports improvement of shortness of breath. Objective Vital Signs Date Time Temp Pulse Resp B/P (MAP) Pulse Ox O2 Delivery O2 Flow Rate FiO2 08/11/24 12:15 86 22 Nasal Cannula 3.0 08/11/24 12:07 95 32 08/11/24 06:00 97.7 120/71 (87) Physical exam: General: Well alert, well oriented, not confused, not agitated, not in acute distress, well cooperated during the physical. HEENT: Conjunctive are pink, sclerae clear, no icterus, pupil is equal in both sides, reactive to light, no ear discharge, no pharyngeal erythema or an edema. Neck: Supple, no JVD, no lymphadenopathy and thyromegaly. Chest: Equal air entry on both lungs, no additional sounds no rhonchi no wheezing at the moment. Cardiovascular: S1-S2 irregular rhythm and rate, no gallops, no rubs, no murmurs Abdomen: No visible peristalsis, Bowel sounds present on auscultation, soft, nontender, no guarding, no rigidity Extremities: No obvious deformities, no pitting edema bilaterally, capillary refill intact, peripheral pulsations are intact on both sides Central Nervous System: No focal neurological deficits, no motor or sensory weakness in all 4 extremities, could move all 4 extremities, 2+ deep tendon reflexes, negative Babinski. Musculoskeletal: No joint swelling, deformities, inflammations, and no scoliosis and back tenderness Skin: Warm and dry. Result Diagram: 08/11/24 0447 08/11/24 0447 Coagulation Studies Laboratory Tests Test 08/11/24 00:00 D-Dimer 1.61 MG/L FEU (0-0.50) H D-Dimer Comment Assessment Assessment 73-year-old male patient came to the hospital with chief complaint of increased demand of oxygen at home due to shortness of breath. Plan Plan Acute on chronic hypoxemic respiratory failure Likely secondary to COPD exacerbation and community-acquired bacterial pneumonia: Covering Gram-positive and Gram-negative microorganisms: Pulmonary embolism-ruled out: On home oxygen; 2.5 L, now requiring 3 L for oxygenation No signs of volume overload or pulmonary congestions CXR Maintain oxygen saturation between 89-92%; on 3 L supplemental O2 via nasal canula, use BiPAP if needed Solu-Medrol 125 mg IV bolus given Solu-Medrol 40 Mg IV twice daily Ceftriaxone 1 g IV daily Azithromycin 500 mg IV daily DuoNeb nebulization every 4 hours as scheduled and every 4 hours as needed Incentive spirometry Wells' Score is 3 (HR + h/o PE), Ordered D-dimer, will proceed with CTA if elevated Ordered COVID, influenza a and B, and RSV, please follow. 08/11/2024: CTA of the chest: No pulmonary embolism. Left lower lobe and lingular pulmonary infiltrate consistent with pneumonia. COVID-19 and RSV: Negative. Continue ceftriaxone 1 g IV daily. Day 2. Continue azithromycin 500 mg daily. Day 2.. To be stopped tomorrow. Decreasing methylprednisolone to 30 mg b.i.d. Culturelle [address]15 mmu b.i.d. Incentive spirometry every 2 hours while awake. DuoNebs q.2h PRN. DuoNebs q.4h scheduled. Acute kidney injury likely prerenal: Creatinine 1.44, Baseline in February was normal Monitor BMP daily NS 50 mL/hours Follow urine sodium, creatinine, and osmolality. 08/11/2024: BUN/creatinine ratio: 17.7. Fractional excretion of sodium: 0.3% indicating prerenal SANJUANITA. Continue NS at 50 mL/hour. Mild Hyponatremia Likely multifactorial; infection, Lasix at home. 08/11/2024: Ordered serum osmolality. Chronic diastolic congestive heart failure not in acute exacerbation: Echocardiogram performed on 12/18/2023: Normal LV size and wall thickness. Overall systolic function is normal. LVEF is 65-70%. RV is normal size and function. RVSP is estimated at 34 mmHg. The left atrium size is normal. Trileaflet AV appears mildly sclerotic and calcified without stenosis. Mild insufficiency. Mild MV annular calcification without stenosis. Mild regurgitation. TV appears normal with trace regurgitation. Aortic root is dilated at 3.85 cm. Normal ascending. Normal pericardium. No effusion. Currently on metoprolol 25 mg b.i.d. Hyperlipidemia Lipid panel showed an LDL 38, HDL 65, triglycerides 39, cholesterol 114. Atorvastatin 20 mg daily. Code status: Full code DVT prophylaxis: The patient is currently on Eliquis 5 mg b.i.d.. Analgesia/sedation: None, non encouraged opioids or benzodiazepines. Line/tube: PIV GI prophylaxis: Omeprazole Nutrition: Heart healthy diet PT: Ordered Prognosis: Guarded Disposition: We will continue medical management. Anticipated discharge tomorrow. Pending physical therapy evaluation. Ethan Robertson Internal Medicine Resident [facility] Date of Service: Aug 11, 2024 Billing Provider: VETO GUERRERO MD Common Visit Codes: [id number] INP/OBS CARE(HIGH) ETHAN SEN, RES Aug 11, 2024 15:21 VETO GUERRERO MD Aug 11, 2024 17:35
[2024-08-11] MEDS: MULTIVIT-MIN/FERROUS GLUCONATE 9 MG/15 ML LIQUID PO SCH (15:30)
[2024-08-11] MEDS: lactose-reduced food (Ensure Enlive) - 237ml bottle PO SCH (18:00)
[2024-08-11] MEDS: budesonide 0.5mg/2ml UD nebule IH SCH (19:18)
[2024-08-11] MEDS: albuterol 2.5 MG/3 ML nebule NEB SCH (19:19)
[2024-08-11] MEDS: methylPREDNISolone sod succ/PF 40mg inj. IV SCH (20:52)
[2024-08-11] MEDS: lactobacillus rhamnosus 10,000 MMU CELLS/CAPSULE PO SCH (20:54)
[2024-08-11] MEDS: guaiFENesin ER 600mg tablet PO SCH (20:54)
[2024-08-11] MEDS ORDERED: atorvastatin 20mg tablet PO SCH (21:00)
[2024-08-11] MEDS: atorvastatin 20mg tablet PO SCH (21:44)
[2024-08-11] MEDS: sennosides/docusate sodium tablet PO SCH (21:45)
[2024-08-11] MEDS: azithromycin/NS 500mg/250ml 250 ML IV SCH (21:45)
[2024-08-11] MEDS: CefTRIAXone/D5W-Rocephin 1gm 50 ML IV SCH (23:01)
[2024-08-12] VITALS (9 sets, daily range): BP systolic 113–124; BP diastolic 62–67; PULSE 63–100; RESP 18–22; TEMP 96.8–98.5; O2SAT 94–99
[2024-08-12 04:46] LABS: BASOPHILS % (AUTO) 0 % (0-1); EOSINOPHILS % (AUTO) 0 % (0-6); HEMATOCRIT 31.3 % (42.0-52.0); HEMOGLOBIN 10.5 g/dl (14.0-17.9); LYMPHOCYTES # (AUTO) 0.7 X10'3 (1.1-4.8); LYMPHOCYTES % (AUTO) 5.2 % (21-51); MEAN CORPUSCULAR HEMOGLOBIN 27.8 PG (27.0-31.0); MEAN CORPUSCULAR HGB CONC 33.5 g/dL (33.0-36.5); MEAN CORPUSCULAR VOLUME 82.9 FL (78-98); MEAN PLATELET VOLUME 7.3 FL (7.4-10.4); MONOCYTES # (AUTO) 0.3 X10'3 (0-0.9); MONOCYTES % (AUTO) 2.6 % (2-12); NEUTROPHILS % (AUTO) 92.2 % (42-75); PLATELET COUNT 286 X10'3 (140-440); RED BLOOD COUNT 3.77 X10'6 (4.70-6.10); RED CELL DISTRIBUTION WIDTH 17.5 % (11.5-14.5)
[2024-08-12 05:09] LABS: HEMOGLOBIN A1C 5.8 % (4.5-6.2); OSMOLALITY 290 MOSM/K (280-300)
[2024-08-12 05:15] LABS: ALANINE AMINOTRANSFERASE 15 U/L (12-78); ALBUMIN 2.3 G/DL (3.4-5.0); ALBUMIN/GLOBULIN RATIO 0.5 (1.1-1.5); ALKALINE PHOSPHATASE 70 IU/L (46-116); ANION GAP 9 (8-16); ASPARTATE AMINO TRANSFERASE 21 U/L (10-37); BILIRUBIN,TOTAL 0.3 MG/DL (0.1-1.0); BLOOD UREA NITROGEN 27 MG/DL (7-18); BUN/CREATININE RATIO 23.1 (10.0-20.0); CALCIUM 8.7 MG/DL (8.5-10.1); CHLORIDE 103 MMOL/L (99-107); CREATININE 1.17 MG/DL (0.60-1.10); GLUCOSE 124 MG/DL (70-104); POTASSIUM 4.3 MMOL/L (3.5-5.1); SODIUM 137 MMOL/L (135-145); TOTAL CARBON DIOXIDE 25.1 MMOL/L (24-32); TOTAL PROTEIN 6.7 G/DL (6.4-8.2); eCRCL 60 ML/MIN; eGFR 61 ML/MIN
[2024-08-12] MEDS: pantoprazole 40mg Tablet.DR PO SCH (09:11)
[2024-08-12] MEDS: HYDROchlorothiazide 12.5mg capsule PO SCH (09:11)
[2024-08-12] MEDS ORDERED: bisacodyl 10mg suppository rectal RC PRN (10:30)
--- NOTE | 2024-08-12 11:20 | RADIOLOGY REPORT ---
ABDOMINAL RADIOGRAPH Indication: no bowel sounds Technique: Single frontal view of the abdomen was obtained Comparison: None FINDINGS: Lines and tubes: None There is gaseous distention of the stomach. Gaseous distention of the colon and stool throughout the colon. No supine radiographic evidence of pneumoperitoneum. Bony structures unremarkable. IMPRESSION: 1. Nonobstructive bowel gas pattern.
[2024-08-12] MEDS: bisacodyl 10mg suppository rectal RC STA (13:26)
--- NOTE | 2024-08-12 14:26 | PROGRESS NOTE- Residence ---
Progress Note - Resident Providers to CC Resident Creating Document: ETHAN SEN, RES ~ Antibiotic Timeout Antibiotic Ordered?: Yes Subjective The patient has been evaluated at the bedside. Currently at his baseline oxygen 2.5 L. reports improvement of shortness of breath. Stating that he didn't have any bowel movement in 2 days. Objective Vital Signs Date Time Temp Pulse Resp B/P (MAP) Pulse Ox O2 Delivery O2 Flow Rate FiO2 08/12/24 09:16 16 08/12/24 09:11 63 08/12/24 07:55 Nasal Cannula 3.0 08/12/24 07:46 94 32 08/12/24 06:00 98.5 113/62 (79) Physical exam: General: Well alert, well oriented, not confused, not agitated, not in acute distress, well cooperated during the physical. HEENT: Conjunctive are pink, sclerae clear, no icterus, pupil is equal in both sides, reactive to light, no ear discharge, no pharyngeal erythema or an edema. Neck: Supple, no JVD, no lymphadenopathy and thyromegaly. Chest: Equal air entry on both lungs, no additional sounds no rhonchi no wheezing at the moment. Cardiovascular: S1-S2 irregular rhythm and rate, no gallops, no rubs, no murmurs Abdomen: No visible peristalsis, Bowel sounds present on auscultation, soft, nontender, no guarding, no rigidity Extremities: No obvious deformities, no pitting edema bilaterally, capillary refill intact, peripheral pulsations are intact on both sides Central Nervous System: No focal neurological deficits, no motor or sensory weakness in all 4 extremities, could move all 4 extremities, 2+ deep tendon reflexes, negative Babinski. Musculoskeletal: No joint swelling, deformities, inflammations, and no scoliosis and back tenderness Skin: Warm and dry. Result Diagram: 08/12/24 0300 08/12/24 0428 Coagulation Studies Laboratory Tests Test 08/11/24 00:00 D-Dimer 1.61 MG/L FEU (0-0.50) H D-Dimer Comment Assessment Assessment 73-year-old male patient came to the hospital with chief complaint of increased demand of oxygen at home due to shortness of breath. Plan Plan Acute on chronic hypoxemic respiratory failure Likely secondary to COPD exacerbation and community-acquired bacterial pneumonia: Covering Gram-positive and Gram-negative microorganisms: Pulmonary embolism-ruled out: On home oxygen; 2.5 L, now requiring 3 L for oxygenation No signs of volume overload or pulmonary congestions CXR Maintain oxygen saturation between 89-92%; on 3 L supplemental O2 via nasal canula, use BiPAP if needed Solu-Medrol 125 mg IV bolus given Solu-Medrol 40 Mg IV twice daily Ceftriaxone 1 g IV daily Azithromycin 500 mg IV daily DuoNeb nebulization every 4 hours as scheduled and every 4 hours as needed Incentive spirometry Wells' Score is 3 (HR + h/o PE), Ordered D-dimer, will proceed with CTA if elevated Ordered COVID, influenza a and B, and RSV, please follow. 08/11/2024: CTA of the chest: No pulmonary embolism. Left lower lobe and lingular pulmonary infiltrate consistent with pneumonia. COVID-19 and RSV: Negative. Continue ceftriaxone 1 g IV daily. Day 2. Continue azithromycin 500 mg daily. Day 2.. To be stopped tomorrow. Decreasing methylprednisolone to 30 mg b.i.d. Culturelle [address] mmu b.i.d. Incentive spirometry every 2 hours while awake. DuoNebs q.2h PRN. DuoNebs q.4h scheduled. 08/12/2024: Continue ceftriaxone 1 g IV daily. Day 3. Azithromycin 500 mg to be completed today. Decreasing dose of methylprednisolone to 30 mg daily. Continue Culturelle. Continue DuoNebs q.2h PRN and DuoNebs q.4h scheduled. Acute kidney injury likely prerenal: Creatinine 1.44, Baseline in February was normal Monitor BMP daily NS 50 mL/hours Follow urine sodium, creatinine, and osmolality. 08/11/2024: BUN/creatinine ratio: 17.7. Fractional excretion of sodium: 0.3% indicating prerenal SANJUANITA. Continue NS at 50 mL/hour. 08/12/2024: Creatinine levels trended down to 1.17 from 1.44. Continue NS at 50 mL/hour. Constipation: MiraLax 17 g HS. Bisacodyl suppository 10 mg daily PRN. Mild Hyponatremia-resolved: Likely multifactorial; infection, Lasix at home. 08/12/2024: Current osmolality within reference range. Chronic diastolic congestive heart failure not in acute exacerbation: Echocardiogram performed on 12/18/2023: Normal LV size and wall thickness. Overall systolic function is normal. LVEF is 65-70%. RV is normal size and function. RVSP is estimated at 34 mmHg. The left atrium size is normal. Trileaflet AV appears mildly sclerotic and calcified without stenosis. Mild insufficiency. Mild MV annular calcification without stenosis. Mild regurgitation. TV appears normal with trace regurgitation. Aortic root is dilated at 3.85 cm. Normal ascending. Normal pericardium. No effusion. Currently on metoprolol 25 mg b.i.d. Hyperlipidemia Lipid panel showed an LDL 38, HDL 65, triglycerides 39, cholesterol 114. Atorvastatin 20 mg daily. Code status: Full code DVT prophylaxis: The patient is currently on Eliquis 5 mg b.i.d. Analgesia/sedation: None, non encouraged opioids or benzodiazepines. Line/tube: PIV GI prophylaxis: Omeprazole Nutrition: Heart healthy diet PT: Physical therapy evaluation, the patient is home independent. Prognosis: Guarded Disposition: We will continue medical management. Anticipated discharge tomorrow.. Ethan Robertson Internal Medicine Resident [facility] Date of Service: Aug 12, 2024 Billing Provider: VETO GUERRERO MD,ETHAN MORTON, RES Aug 12, 2024 14:26
[2024-08-12] MEDS ORDERED: CEFD300C3 PO (17:49)
[2024-08-12] MEDS ORDERED: LACT1CAP26 PO (17:50)
[2024-08-12] MEDS ORDERED: polyethylene glycol 3350 17gm powd pack PO SCH (21:00)
[2024-08-13] MEDS ORDERED: methylPREDNISolone sod succ/PF 40mg inj. IV SCH (08:00)
--- NOTE | 2024-08-13 19:17 | DISCHARGE SUMMARY-Residence ---
Discharge Summary Providers to CC Resident Creating Document: BRANDON SEN, RES ~ Discharge Summary Admission Diagnosis: COPD EXACERBATION Hospital Course DATE OF ADMISSION: 08/10/2024 DATE OF DISCHARGE: 08/13/2024 Discharge Diagnosis\Comment: Acute on chronic hypoxemic respiratory failure Likely secondary to COPD exacerbation and community-acquired bacterial pneumonia: Covering Gram-positive and Gram-negative microorganisms Pulmonary embolism-ruled out Acute kidney injury likely prerenal Mild Hyponatremia-resolved Chronic diastolic congestive heart failure not in acute exacerbation Hyperlipidemia Operations\Procedures: None Consultants: None Complications: None Condition on DC: Stable New Medications: Cefdinir (Cefdinir) 300 Mg Capsule 1 CAP PO Q12H for 2 Days, #4 CAP 0 Refills Lactobacillus Rhamnosus (Culturelle) 10 Billion Cell Capsule 1 CAP PO BID for 30 Days, #60 CAP 0 Refills Continued Medications: Acetaminophen (Tylenol) 325 Mg Tablet 650 MG PO Q4H PRN for pain, TAB Albuterol Sulfate (Proair Hfa) 1 Puff Inh 1 PUFFS IH Q4H PRN for SOB or wheezing, #1 EACH Atorvastatin Calcium* (Lipitor*) 40 Mg Tablet 1 TAB PO HS, TAB Docusate Sodium (Colace) 100 Mg Capsule 1 CAP PO Q12H, CAP 0 Refills Guaifenesin (Mucinex) 600 Mg Tablet.sa 1 TAB PO Q12H for cough, TAB 0 Refills Hydrocodone Bit/Acetaminophen 5/325 MG ([place] 5/325 MG) 5 Mg/325 Mg Tablet 1 TAB PO Q4H PRN for pain, TAB Hydrocodone Bit/Acetaminophen (Hydrocodone-Apap 10-325 Tablet) 10mg/325mg Tablet 1 TABLET PO Q4H PRN for pain, #30 TAB Ipratropium/Albuterol Sulfate (Duoneb 2.5-0.5 Mg/3 Ml Soln) 0.5 Mg-3 Mg (2.5 Mg Base)/3 Ml Ampul.neb 3 ML IH Q4H PRN for SOB or wheezing, ML Metoprolol Tartrate (Lopressor tablet) 25 Mg Tablet 25 MG PO BID, TAB 12.5 MG = 1/2 TABLET HOLD FOR SBP LESS THAN 100 OR PULSE BELOW 60 Mometasone/Formoterol (Dulera 200 Mcg/5 Mcg Inhaler) 200 Mcg-5 Mcg/Actuation Hfa.aer.ad 2 PUFFS INH Q12H, GM 0 Refills Omeprazole Magnesium (Prilosec Otc) 20 Mg Tablet.dr 20 MG PO DAILY, TAB.SR Sennosides/Docusate Sodium (Senna Plus 8.6-50 mg Tablet) 8.6 Mg-50 Mg Tablet 2 TAB PO TID for 30 Days, #180 TAB 0 Refills Tiotropium [place] (Spiriva Respimat) 4 Gm Mist.inhal 2 PUFFS PO DAILY Discontinued Medications: Hydrochlorothiazide (Hydrochlorothiazide) 12.5 Mg Tablet 1 TAB PO DAILY for 30 Days, #30 TAB 0 Refills Discharge Summary: HPI: This is a 73-year-old male with a history of COPD, CHF with preserved ejection fraction, and h/o pulmonary embolism, currently on home oxygen at 2.5 L and Eliquis for PA. He presents with progressively worsening shortness of breaths that became worse this morning. He also reports increased sputum production, described as yellow green, over the past few days. He states that his oxygen requirement has increased from 2.5-3.5 L but continues to feel short of breath. Paramedics placed him on 4 L oxygen during transport. He denies chest pain, di aphoresis, or other associated symptoms. Notably, he was hospitalized in February 2024 for acute on chronic respiratory failure secondary to CHF exacerbation. His smoking history includes 40 pack years, and he quit smoking in 2022. He ambulates using a walker and lives alone. I have discussed advance care planning with the patient. The patient has decided on a full code status. Hospital course: 73-year-old male patient admitted with the acute hypoxemic respiratory failure due to COPD exacerbation and community-acquired pneumonia. The patient was started on antibiotics, DuoNebs, steroids. COVID-19 influenza a and B and RSV came back negative. Due to elevated D-dimer pulmonary embolism was ruled out. The patient reported significant improvement of shortness of breath upon the following days. Associated to these symptoms the patient also had acute kidney injury likely secondary to dehydration for which the patient was treated with a NS at 50 mL/hour. Showing improvement upon the following days. The patient remained hemodynamically stable. The patient will be discharged. Discharge course: The patient remained hemodynamically stable. The patient will be discharged with the following instructions: PATIENT NEEDS FOLLOW-UP WITH PRIMARY CARE PHYSICIAN AFTER HOSPITAL DISCHARGE. ACTIVITY TOLERATED. AVOID CONSTIPATION. Take cefdinir one capsule of 300 mg every 12 hours for two days. Continue your home medication. Vital Signs Date Time Temp Pulse Resp B/P (MAP) Pulse Ox O2 Delivery O2 Flow Rate FiO2 08/12/24 15:15 80 22 Nasal Cannula 3.0 08/12/24 14:59 98 32 08/12/24 10:00 96.8 124/67 (86) Physical exam: General: Well alert, well oriented, not confused, not agitated, not in acute distress, well cooperated during the physical. HEENT: Conjunctive are pink, sclerae clear, no icterus, pupil is equal in both sides, reactive to light, no ear discharge, no pharyngeal erythema or an edema. Neck: Supple, no JVD, no lymphadenopathy and thyromegaly. Chest: Equal air entry on both lungs, no additional sounds no rhonchi no wheezing at the moment. Cardiovascular: S1-S2 irregular rhythm and rate, no gallops, no rubs, no murmurs Abdomen: No visible peristalsis, Bowel sounds present on auscultation, soft, nontender, no guarding, no rigidity Extremities: No obvious deformities, no pitting edema bilaterally, capillary refill intact, peripheral pulsations are intact on both sides Central Nervous System: No focal neurological deficits, no motor or sensory weakness in all 4 extremities, could move all 4 extremities, 2+ deep tendon reflexes, negative Babinski. Musculoskeletal: No joint swelling, deformities, inflammations, and no scoliosis and back tenderness Skin: Warm and dry. Laboratory Tests Test 08/12/24 03:00 08/12/24 04:28 White Blood Count 13.0 X10'3 Red Blood Count 3.77 X10'6 Hemoglobin 10.5 g/dl Hematocrit 31.3 % Mean Corpuscular Volume 82.9 FL Mean Corpuscular Hemoglobin 27.8 PG Mean Corpuscular Hemoglobin Concent 33.5 g/dL Red Cell Distribution Width 17.5 % Platelet Count 286 X10'3 Mean Platelet Volume 7.3 FL Neutrophils (%) (Auto) 92.2 % Lymphocytes (%) (Auto) 5.2 % Monocytes (%) (Auto) 2.6 % Eosinophils (%) (Auto) 0 % Basophils (%) (Auto) 0 % Neutrophils # (Auto) 12.0 X10'3 Lymphocytes # (Auto) 0.7 X10'3 Monocytes # (Auto) 0.3 X10'3 Eosinophils # (Auto) 0.0 X10'3 Basophils # (Auto) 0.0 X10'3 CBC Comment Sodium Level 137 MMOL/L Potassium Level 4.3 MMOL/L Chloride Level 103 MMOL/L Carbon Dioxide Level 25.1 MMOL/L Anion Gap 9 Blood Urea Nitrogen 27 MG/DL Creatinine 1.17 MG/DL Estimated GFR/1.73 m2 61 ML/MIN BUN/Creatinine Ratio 23.1 Glucose Level 124 MG/DL Hemoglobin A1c 5.8 % Osmolality 290 MOSM/K Calcium Level 8.7 MG/DL Total Bilirubin 0.3 MG/DL Aspartate Amino Transf (AST/SGOT) 21 U/L Alanine Aminotransferase (ALT/SGPT) 15 U/L Alkaline Phosphatase 70 IU/L Total Protein 6.7 G/DL Albumin 2.3 G/DL Globulin 4.4 G/DL Albumin/Globulin Ratio 0.5 Chemistry Comments *Problems/Diagnosis: (1) Community acquired pneumonia Status: Acute (2) Acute exacerbation of chronic obstructive airways disease Status: Acute (3) Acute kidney injury Status: Acute Total Time Spent on D/C: > 30 Minutes Date of Service: Aug 12, 2024 Billing Provider: VETO GUERRERO MD Common Visit Codes: 92768-FCH/OBS DISCH DAY >30min BRANDON SEN, RES Aug 13, 2024 19:16 VETO GUERRERO MD Aug 14, 2024 18:38
== END 2024-08-12 19:10 | disposition home health service (06) | DRG 189 ==
LOC: ER 19:55 → ED HOLD 21:44 → ORTHO 4S 08-11 00:40
PROVIDERS: ADMIT Internal Medicine; ATTEND Internal Medicine
PROC: B32T1ZZ Computerized Tomography (CT Scan) of Left Pulmonary Artery using Low Osmolar Contrast (ICD-10-PCS; principal; 2024-08-11)
PROC: B3201ZZ Computerized Tomography (CT Scan) of Thoracic Aorta using Low Osmolar Contrast (ICD-10-PCS; 2024-08-11)
PROC: B32S1ZZ Computerized Tomography (CT Scan) of Right Pulmonary Artery using Low Osmolar Contrast (ICD-10-PCS; 2024-08-11)
DX: J96.21 Acute and chronic respiratory failure with hypoxia (principal); J15.69 Pneumonia due to other Gram-negative bacteria; J15.9 Unspecified bacterial pneumonia; J44.1 Chronic obstructive pulmonary disease with (acute) exacerbation; E87.1 Hypo-osmolality and hyponatremia; I50.32 Chronic diastolic (congestive) heart failure; J44.0 Chronic obstructive pulmonary disease with (acute) lower respiratory infection; N17.9 Acute kidney failure, unspecified; R65.10 Systemic inflammatory response syndrome (SIRS) of non-infectious origin without acute organ dysfunction; Z20.822 Contact with and (suspected) exposure to COVID-19; J43.9 Emphysema, unspecified; Z86.711 Personal history of pulmonary embolism; Z88.6 Allergy status to analgesic agent; Z88.8 Allergy status to other drugs, medicaments and biological substances; Z79.899 Other long term (current) drug therapy; Z87.891 Personal history of nicotine dependence
CPT/HCPCS: 36415; 71045; 71275; 74018; 80053; 80061; 81001; 82570; 83036; 83880; 83930; 83935; 84145; 84300; 84443; 84484; 85025; 85379; 87070; 87077; 87081; 87088; 87186; 87811; 93005; 94640; 94664; 94668; 94760; 96361; 96365; 96372; 96375; 97110; 97116; 97162; 99285; A4615; A6258; A6449; G0378; J0456; J0696; J2919; J7030; Q9967

== ENCOUNTER 2024-09-02 19:37 | Emergency (ER) | payer OTHER, MEDICARE, MEDICAID ==
[~2024-09-02] VITALS: Ht 185.4 cm; Wt 72.0 kg
[~2024-09-02 19:37] MED LIST changes: -APIX5TAB3 PO; -BISA-79 PO; -BISA10SU60 RC; +CEFD300C3 PO; -HYDR12.55 PO; +LACT1CAP26 PO; -MAGN400O6 PO; -NA P133E4 RC; -POLY119P2 PO; -POLY17PO10 PO; -PRED10TA PO
[2024-09-02 20:25] VITALS: TEMP 98.3
[2024-09-02 20:26] LABS: MEAN PLATELET VOLUME 7.2 FL (7.4-10.4); RED CELL DISTRIBUTION WIDTH 17.9 % (11.5-14.5)
--- NOTE | 2024-09-02 20:33 | RADIOLOGY REPORT ---
Procedure: DI CHEST,SINGLE VIEW 09/02/2024 07:55 PM Indication: CP Comparison: DI CHEST,SINGLE VIEW on DOS: 08/10/24, DI CHEST,SINGLE VIEW on DOS: 03/09/24, DI CHEST,SING LE VIEW on DOS: 01/23/24, DI CHEST,SINGLE VIEW on DOS: 01/20/24, DI CHEST,SINGLE VIEW on DOS: 01/05/24 TECHNIQUE: DI CHEST,SINGLE VIEW FINDINGS: Medical devices: None. Cardiomediastinal: The heart is normal in size. Pulmonary vasculature is within normal limits. Lungs: Mixed airspace opacities in the left lung base, stable. The costophrenic angles are clear. N o pneumothorax. Bones/soft tissues: No acute abnormality is noted. IMPRESSION: 1. Stable mixed airspace opacities in the left lung base. Overall unchanged stable exam.
[2024-09-02 20:51] LABS: CREATININE 1.16 MG/DL (0.60-1.10); PRO BRAIN NATRIURETIC PEPTIDE 429 PG/ML (0-450); TOTAL CARBON DIOXIDE 25.1 MMOL/L (24-32); eCRCL 56 ML/MIN; eGFR 61 ML/MIN
--- NOTE | 2024-09-02 21:46 | Physician Documentation ---
History of Present Illness ~ Chief Complaint: Shortness of Breath Stated Complaint: DIFFICULTY BREATHING Time Seen by MD: 21:43 Primary Medical Doctor: None Mode of Arrival: EMS HPI Patient presents to the emergency room with chief complaint of shortness of breath. History of both PE and COPD. Patient states he had a panic attack today secondary to his shortness of breath. No fevers. No chest pain. Medication Reconciliation Allergies: Coded Allergies: aspirin (Unverified Allergy, Unknown, 03/09/24) naproxen (Verified Allergy, Unknown, hives, swelling, 03/09/24) Scheduled Atorvastatin Calcium* (Lipitor*), 1 TAB PO HS, (Reported) Cefdinir (Cefdinir), 1 CAP PO Q12H Docusate Sodium (Colace), 1 CAP PO Q12H, (Reported) Guaifenesin (Mucinex), 1 TAB PO Q12H, (Reported) Lactobacillus Rhamnosus (Culturelle), 1 CAP PO BID Metoprolol Tartrate (Lopressor tablet), 25 MG PO BID, (Reported) Mometasone/Formoterol (Dulera 200 Mcg/5 Mcg Inhaler), 2 PUFFS INH Q12H, (Reported) Omeprazole Magnesium (Prilosec Otc), 20 MG PO DAILY, (Reported) Sennosides/Docusate Sodium (Senna Plus 8.6-50 mg Tablet), 2 TAB PO TID Tiotropium [place] (Spiriva Respimat), 2 PUFFS PO DAILY, (Reported) Scheduled PRN Acetaminophen (Tylenol), 650 MG PO Q4H PRN for pain, (Reported) Albuterol Sulfate (Proair Hfa), 1 PUFFS IH Q4H PRN for SOB or wheezing, (Repo rted) Hydrocodone Bit/Acetaminophen 5/325 MG ([place] 5/325 MG), 1 TAB PO Q4H PRN for pain, (Reported) Hydrocodone Bit/Acetaminophen (Hydrocodone-Apap 10-325 Tablet), 1 TABLET PO Q4H PRN for pain, (Reported) Ipratropium/Albuterol Sulfate (Duoneb 2.5-0.5 Mg/3 Ml Soln), 3 ML IH Q4H PRN for SOB or wheezing, (Reported) Past Medical History Past Medical History: COPD, Emphysema, Constipation Past Surgical History: no surgical history Patient History: FH: lung cancer GRANDFATHER OR GRANDMOTHER MOTHER FH: throat cancer GRANDFATHER OR GRANDMOTHER Alcohol Use: Other Drug Use: none Lives with: Other Lives In: SNF Review of Systems ROS All review of systems negative except as per HPI Physical Exam Vital Signs: Temperature: 98.3, Source: Oral, Heart Rate: 102, Respiratory Rate: 26, BP: 140/87, Pulse Oximetry: 99, Weight: 72.000 Physical Exam General: Patient is awake, alert, oriented x4 in no acute distress Head: Normocephalic and atraumatic. Eyes: Conjunctival normal. EOMI. PERRL. ENT: Mucous membranes moist. Neck: Supple, trachea is midline. Chest: Mild diffuse wheezing bilaterally. There is no accessory muscle use or retractions. Cardiac: RRR without murmurs, gallops, or rubs. Abd: Soft, nondistended, nontender, with normoactive bowel sounds. No guarding, rebound, or rigidity. Progress Results/Orders Results/Orders Orders - CHIP CAROLINA MD Chest,Single View (09/02/24 19:55) Monitor (09/02/24 19:45) Saline Lock (09/02/24 19:45) Oxygen (09/02/24 19:45) Electrocardiogram (09/02/24 19:45) Culture Blood (09/02/24 19:46) Ipratropium/Albuterol Nebule (Ipratrop/A (09/02/24 21:45) Svn Treatment (09/02/24 22:48) Cult Urine + [place] [address] (09/03/24 00:29) Famotidine Tablet (Pepcid Tablet) (09/03/24 00:40) Mag & Alum Hydrox/Simeth Susp (Maalox Or (09/03/24 00:40) Completed Orders - CHIP CAROLINA MD Chest,Single View (09/02/24 19:55) Cbc/Diff (09/02/24 19:45) BMP (09/02/24 19:45) PBNP (09/02/24 19:45) Hs Troponin I W Calculations (09/02/24 19:45) Hs Troponin I W Calculations (09/02/24 21:45) Hs Troponin I W Calculations (09/02/24 22:45) Procalcitonin (09/02/24 19:46) Lacticsepsis (09/02/24 19:46) Ipratropium/Albuterol Nebule (Ipratrop/A (09/03/24 00:00) Ipratropium/Albuterol Nebule (Ipratrop/A (09/02/24 22:50) Ua W/Microscopic, Cult If Ind (09/02/24 23:40) Medications Received in ER Medications (Trade) Dose Ordered Sig/Renetta Route PRN Reason Start Time Stop Time Status Last Admin Dose Admin (ipratrop/ albuterol 0.5-3(2.5) MG/3ml nebule) 3 ml Q4H ONCE NEB 09/03/24 00:00 09/03/24 00:01 DC 09/02/24 22:02 3 ML (ipratrop/ albuterol 0.5-3(2.5) MG/3ml nebule) 3 ml ONCE ONCE NEB 09/02/24 22:50 09/02/24 22:53 DC 09/02/24 22:57 3 ML Vital Signs 09/02/24 09/02/24 09/02/24 09/02/24 19:45 19:51 19:53 19:53 Pulse 98 102 Resp 23 25 26 B/P (MAP) 140/87 140/87 (104) Pulse Ox 94 97 99 O2 Delivery Nasal Cannula* O2 Flow Rate 3 FiO2 32 09/02/24 09/02/24 09/02/24 09/02/24 20:25 21:52 22:11 22:17 Temp 98.3 Pulse 108 100 96 Resp 21 1 12 B/P (MAP) 128/72 (90) Pulse Ox 94 96 98 O2 Delivery Nasal Cannula* Nasal Cannula* O2 Flow Rate 2 2 FiO2 28 28 09/02/24 09/02/24 09/02/24 23:02 23:06 23:07 Pulse 98 96 101 Resp 20 20 11 B/P (MAP) 140/80 (100) Pulse Ox 98 97 O2 Delivery Nasal Cannula* Nasal Cannula* O2 Flow Rate 2 2 FiO2 28 28 Laboratory Tests Test 09/02/24 20:01 09/02/24 21:41 09/02/24 23:03 09/02/24 23:40 White Blood Count 8.4 Red Blood Count 4.60 L Hemoglobin 12.6 L Hematocrit 38.1 L Mean Corpuscular Volume 83.0 Mean Corpuscular Hemoglobin 27.5 Mean Corpuscular Hemoglobin Concent 33.1 Red Cell Distribution Width 17.9 H Platelet Count 292 Mean Platelet Volume 7.2 L Neutrophils (%) (Auto) 71.7 Lymphocytes (%) (Auto) 13.8 L Monocytes (%) (Auto) 9.5 Eosinophils (%) (Auto) 4.4 Basophils (%) (Auto) 0.6 Neutrophils # (Auto) 6.0 Lymphocytes # (Auto) 1.2 Monocytes # (Auto) 0.8 Eosinophils # (Auto) 0.4 Basophils # (Auto) 0.1 CBC Comment Sodium Level 135 Potassium Level 4.2 Chloride Level 102 Carbon Dioxide Level 25.1 Anion Gap 8 Blood Urea Nitrogen 22 H Creatinine 1.16 H Estimated GFR/1.73 m2 61 BUN/Creatinine Ratio 19.0 Glucose Level 85 Lactic Acid Level 1.8 Calcium Level 9.1 Troponin I High Sensitivity 8 8 7 Pro-B-Type Natriuretic Peptide 429 Albumin 2.9 L Chemistry Comments Troponin I High Sens Percent Delta 0 12 Troponin I Hi Sens Absolute Change 0 -1 Procalcitonin 0.06 Urine Specimen Description Cln catch midstream Urine Color Yellow Urine Clarity Cloudy Urine pH 6.0 Urine Specific [place] 1.020 Urine Protein 30 H Urine Glucose (UA) Negative Urine Ketones Negative Urine Occult Blood Moderate H Urine Nitrite Negative Urine Bilirubin Negative Urine Urobilinogen 0.2 Urine Leukocyte Esterase Moderate H Urine RBC 10-20 Urine WBC 50-100 H Urine WBC Clumps Few Urine Squamous Epithelial Cells None seen Urine Bacteria 2+ Urine Mucus Few Urine Culture Indicated Indicated Volume Urine Centrifuged 10 ml Urine Comment Microbiology Date/Time Source Procedure Growth Status 09/02/24 20:10 Blood Arm Left Blood Culture - Preliminary NEGATIVE (LESS THAN 24 HOURS) Resulted EKG/XRAY/CT/US/VASC/MRI EKG : Additional Comment EKG interpreted by myself shows time of 194, rate 97, sinus rhythm, normal axis, no ST changes Chest X-Ray : Additional Comments Exam: CHEST,SINGLE VIEW Procedure: DI CHEST,SINGLE VIEW 09/02/2024 07:55 PM Indication: CP Comparison: DI CHEST,SINGLE VIEW on DOS: 08/10/24, DI CHEST,SINGLE VIEW on DOS: 03/09/24, DI CHEST,SINGLE VIEW on DOS: 01/23/24, DI CHEST,SINGLE VIEW on DOS: 01/20/24, DI CHEST,SINGLE VIEW on DOS: 01/05/24 TECHNIQUE: DI CHEST,SINGLE VIEW FINDINGS: Medical devices: None. Cardiomediastinal: The heart is normal in size. Pulmonary vasculature is within normal limits. Lungs: Mixed airspace opacities in the left lung base, stable. The costophrenic angles are clear. No pneumothorax. Bones/soft tissues: No acute abnormality is noted. IMPRESSION: 1. Stable mixed airspace opacities in the left lung base. Overall unchanged stable exam. Medical Decision Making Findings Patient presented to the emergency room with shortness of breath. Differentials include but are not limited to COPD exacerbation, asthma, CHF exacerbation, anxiety, viral syndrome therefore emergent labs and imaging indicated. The patient has responded to breathing treatments. He does have urinary tract infection we will treat him as such. Departure Disposition: HOME / SELF CARE / HOMELESS Impression: Primary Impression: Difficulty breathing Additional Impression: Acute urinary tract infection Condition: Improved Discharge Instructions: Urinary Tract Infection, Adult, [id number] Referrals: NO PRIMARY CARE PROVIDER (PCP) Prescriptions Cephalexin*Monohydrate* (Keflex*) 500 Mg Capsule 1 CAP PO Q12H for 10 Days, #20 CAP Prov: CHIP CAROLINA MD 09/03/24 Education Educated: Patient Educated regarding: diagnosis, treatment, need for follow up Signature Scribe Signature: No scribe Attestation: The note accurately reflects work and decisions made by me.Chip Carolina MD 09/03/24 00:52 CHIP CAROLINA MD Sep 02, 2024 21:46
[2024-09-02] MEDS: ipratropium/albuterol 3ml nebule NEB ONE ×2 (22:02→22:57)
[2024-09-02 22:11] VITALS: PULSE 100; RESP 1; O2SAT 96
[2024-09-02 22:17] VITALS: PULSE 96; RESP 12; O2SAT 98
[2024-09-02 23:02] VITALS: PULSE 98; RESP 20
[2024-09-02 23:06] VITALS: PULSE 96; RESP 20; O2SAT 98
[2024-09-03 00:09] LABS: LEUKOCYTE ESTERASE ,URINE MODERATE (Neg); NITRITES, URINE NEGATIVE (Neg); OCCULT BLOOD,URINE MODERATE (Neg)
[2024-09-03 00:13] LABS: UA COLLECTION TYPE CLN CATCH MIDSTREAM
[2024-09-03 00:26] LABS: MUCUS STRANDS FEW /LPF (Neg); SQUAMOUS EPITHELIAL CELL,UR NONE SEEN /LPF (FEW)
[2024-09-03 00:27] LABS: WBC CLUMPS,URINE FEW /HPF (NEGATIVE)
[2024-09-03 00:45] VITALS: PULSE 108; RESP 20; O2SAT 96
[2024-09-03] MEDS: ipratropium/albuterol 3ml nebule NEB PRN (00:45)
[2024-09-03] MEDS ORDERED: CEPH-585 PO (00:52)
[2024-09-03 00:54] VITALS: PULSE 100; RESP 22; O2SAT 98
[2024-09-03] MEDS: mag hydrox/Alum hydrox/simeth 30ml oral suspension PO ONE (00:55)
[2024-09-03] MEDS: CefTRIAXone/D5W-Rocephin 1gm 50 ML IV ONE (00:56)
[2024-09-03 03:59] VITALS: PULSE 98; RESP 18; O2SAT 96
[2024-09-03 04:05] VITALS: PULSE 102; RESP 22
--- NOTE | 2024-09-03 05:47 | ELECTROCARDIOGRAPH REPORT ---
[facility] Test Date: 2024-09-02 Test Time: 19:46:48 Pat Name: KAYLIE WISE Department: EMERGENCY ROOM Room: Gender: M Disaster Recovery Analyst: CAROLINE : 1950 Requested By: BRUCE ROSAS Order Number: [id number] Reading MD: Measurements Intervals [place] Rate: 97 P: 78 MI: 129 QRS: 87 QRSD: 122 T: 69 QT: 359 QTc: 456 Interpretive Statements Sinus rhythm Right bundle branch block Please click the below link to view image of tracing.
[2024-09-03 05:59] VITALS: BP 109/79; PULSE 101; RESP 14; O2SAT 97
== END 2024-09-03 06:59 | disposition home or self-care (01) ==
LOC: ER 19:38
DX: R06.02 Shortness of breath (principal); J43.9 Emphysema, unspecified; N39.0 Urinary tract infection, site not specified; Z88.6 Allergy status to analgesic agent
CPT/HCPCS: 36415; 71045; 80048; 81001; 83605; 83880; 84145; 84484; 85025; 87040; 87088; 93005; 94640; 96374; 99285; J0696; 94760

== ENCOUNTER 2024-09-13 17:57 | Inpatient (IN) | payer OTHER, MEDICARE, MEDICAID ==
[~2024-09-13] VITALS: Ht 177.8 cm; Wt 72.7 kg
[2024-09-13] VITALS (9 sets, daily range): BP systolic 109; BP diastolic 73; PULSE 73–114; RESP 17–26; TEMP 98; O2SAT 94–98
[~2024-09-13 17:57] MED LIST changes: +CEPH-585 PO
[2024-09-13] MEDS: albuterol 2.5 MG/3 ML nebule CONTNEB PRN (18:05)
--- NOTE | 2024-09-13 18:06 | Physician Documentation ---
History of Present Illness ~ Chief Complaint: Shortness of Breath Stated Complaint: DIFFICULTY BREATHING Time Seen by MD: 18:03 Primary Medical Doctor: None Source: patient Mode of Arrival: EMS HPI 73 yom h/o COPD, HFpEF PE on Eliquis p/w sob. Was found tripoding by EMS. Gave nebulizer and placed on cpap. Medication Reconciliation Allergies: Coded Allergies: aspirin (Unverified Allergy, Unknown, 09/13/24) naproxen (Verified Allergy, Unknown, hives, swelling, 09/13/24) Scheduled Atorvastatin Calcium* (Lipitor*), 1 TAB PO HS, (Reported) Cefdinir (Cefdinir), 1 CAP PO Q12H Cephalexin*Monohydrate* (Keflex*), 1 CAP PO Q12H Docusate Sodium (Colace), 1 CAP PO Q12H, (Reported) Guaifenesin (Mucinex), 1 TAB PO Q12H, (Reported) Lactobacillus Rhamnosus (Culturelle), 1 CAP PO BID Metoprolol Tartrate (Lopressor tablet), 25 MG PO BID, (Reported) Mometasone/Formoterol (Dulera 200 Mcg/5 Mcg Inhaler), 2 PUFFS INH Q12H, (Reported) Omeprazole Magnesium (Prilosec Otc), 20 MG PO DAILY, (Reported) Sennosides/Docusate Sodium (Senna Plus 8.6-50 mg Tablet), 2 TAB PO TID Tiotropium [place] (Spiriva Respimat), 2 PUFFS PO DAILY, (Reported) Scheduled PRN Acetaminophen (Tylenol), 650 MG PO Q4H PRN for pain, (Reported) Albuterol Sulfate (Proair Hfa), 1 PUFFS IH Q4H PRN for SOB or wheezing, (Reported) Hydrocodone Bit/Acetaminophen 5/325 MG ([place] 5/325 MG), 1 TAB PO Q4H PRN for pain, (Reported) Hydrocodone Bit/Acetaminophen (Hydrocodone-Apap 10-325 Tablet), 1 TABLET PO Q4H PRN for pain, (Reported) Ipratropium/Albuterol Sulfate (Duoneb 2.5-0.5 Mg/3 Ml Soln), 3 ML IH Q4H PRN for SOB or wheezing, (Reported) Past Medical History Past Medical History: COPD, Emphysema, Constipation Past Surgical History: no surgical history Patient History: FH: lung cancer GRANDFATHER OR GRANDMOTHER MOTHER FH: throat cancer GRANDFATHER OR GRANDMOTHER Alcohol Use: Other Drug Use: none Lives with: Other Lives In: SNF Review of Systems All Other Systems at this time: Reviewed and Negative Constitutional: Denies: fever Respiratory: Reports: cough, orthopnea, shortness of breath, SOB with exertion Cardiovascular: Denies: chest pain Gastrointestinal: Denies: abdominal pain Physical Exam Vital Signs: RN Vital Signs have been reviewed: Yes, Temperature: 98.0, Source: Oral, Heart Rate: 120, Respiratory Rate: 28, BP: 145/82, Pulse Oximetry: 93, Weight: 72.730 Oxygen Flow Rate: 15.0 Physical Exam severe distress, tripoding diminished sounds bilaterally, expiratory wheezing cardiac no murmur abdomen soft non tender lower ext no edema awake alert oriented. Progress Results/Orders Results/Orders Orders - SAMM ELLIS MD Bipap/Cpap (09/13/24 ) Ceftriaxone/S0i-Tmjeuofo 1gm (Rocephin 1 (09/13/24 20:05) Medications Received in ER Medications (Trade) Dose Ordered Sig/Renetta Route PRN Reason Start Time Stop Time Status Last Admin Dose Admin (SoluMEDROL 125mg inj) 125 mg ONCE ONCE IV 09/13/24 18:05 09/13/24 18:06 DC 09/13/24 18:06 125 MG (Proventil 2.5 MG/3ML nebule) 10 mg Q1H PRN CONTNEB SOB or wheezing 09/13/24 18:05 09/13/24 18:05 10 MG Vital Signs 09/13/24 09/13/24 09/13/24 09/13/24 17:59 18:07 18:11 18:12 Temp 98.0 Pulse 120 113 114 111 Resp 28 24 15 24 26 B/P (MAP) 145/82 128/75 (92) Pulse Ox 93 94 94 95 O2 Flow Rate 15.0 FiO2 40 40 09/13/24 09/13/24 09/13/24 09/13/24 18:12 18:15 19:04 19:28 Pulse 112 110 Resp 25 25 20 B/P (MAP) Pulse Ox 95 95 94 O2 Delivery BiPAP+ FiO2 N/A 09/13/24 19:39 Temp 98.0 Pulse 108 Resp 19 B/P (MAP) 101/59 (73) Laboratory Tests Test 09/13/24 18:00 09/13/24 19:13 09/13/24 19:51 White Blood Count 11.7 H Red Blood Count 4.48 L Hemoglobin 12.2 L Hematocrit 37.0 L Mean Corpuscular Volume 82.6 Mean Corpuscular Hemoglobin 27.2 Mean Corpuscular Hemoglobin Concent 32.9 L Red Cell Distribution Width 17.4 H Platelet Count 420 Mean Platelet Volume 7.4 Neutrophils (%) (Auto) 78.1 H Lymphocytes (%) (Auto) 13.4 L Monocytes (%) (Auto) 6.5 Eosinophils (%) (Auto) 1.5 Basophils (%) (Auto) 0.5 Neutrophils # (Auto) 9.1 H Lymphocytes # (Auto) 1.6 Monocytes # (Auto) 0.8 Eosinophils # (Auto) 0.2 Basophils # (Auto) 0.1 CBC Comment Sodium Level 131 L Potassium Level 4.3 Chloride Level 101 Carbon Dioxide Level 21.4 L Anion Gap 9 Blood Urea Nitrogen 18 Creatinine 0.87 Estimated GFR/1.73 m2 86 BUN/Creatinine Ratio 20.7 H Glucose Level 115 H Calcium Level 9.3 Troponin I High Sensitivity 17 74 Pro-B-Type Natriuretic Peptide 352 Albumin 2.7 L Chemistry Comments Blood Gas Specimen Type Arterial Blood Gas Puncture Site Rr O2 Saturation 98.6 H Arterial Blood pH (Temp corrected) 7.439 Arterial Blood pCO2 (Temp correct) 27.0 L Arterial Blood pO2 (Temp corrected) 105.1 Arterial Blood PO2/FiO2 Ratio 2.67 Arterial Blood HCO3 18.0 L Arterial Blood Base Excess -4.9 L Arterial Blood Oxyhemoglobin 97.7 Arterial Blood Carboxyhemoglobin 0.6 Arterial Blood Methemoglobin 0.3 Arterial Blood Deoxyhemoglobin 1.4 [place] Test Modified Blood Gas Hemoglobin 12.4 L Blood Gas Temperature 36.7 Blood Gas Set Respiration Rate 12 Blood Gas Modality Mask - bipap FiO2 40.0 Troponin I High Sens Percent Delta 335 Troponin I Hi Sens Absolute Change 57 EKG/XRAY/CT/US/VASC/MRI EKG : Additional Comment Independent interpretation of EKG time 1805 indication sob sinus tach 115 right axis deviation, Right bundle no st elevation Chest X-Ray : Interpreted By: self Additional Comments CXR independently interpreted show no ptx, no consolidation, no effusion, normal cm silhouette. Medical Decision Making Additional info obtained from: old records Findings d/c summary 08/13/24 Chest x-ray, single view, indication: Shortness a breath Independent interpretation: Bibasilar pleural scarring, bilateral opacities likely scarring/fibrosis. Normal cardiac silhouette, normal mediastinum. No acute cardiopulmonary process Laboratory data independent interpretation: CBC: Mild anemia with a hemoglobin of 12.2, mild leukocytosis with a white blood cell count of 11.7 CMP: Unremarkable. Troponin: 7 Pro BNP: 352 Emergency department course/medical decision-making: Care the patient was transferred to pa from Dr. Hale at approximately 6:30 p.m.. Patient presented with acute severe shortness a breath and respiratory failure secondary to COPD exacerbation. Chest x-ray shows no evidence of congestive heart failure or pleural effusion. Do not suspect pulmonary embolus. Patient just had a recent admission and was recently discharged for the same. Patient is given albuterol and DuoNebs and IV Solu-Medrol and IV Rocephin. Pat ient will require admission. Patient was placed on BiPAP on arrival. 7:00 p.m.: Patient re-evaluated. Patient is breathing much better now. Respiratory will be called to remove BiPAP. Consultation/communications: 8:05 p.m.: Case discussed with our resident hospitalist, Dr. Gomez. She will evaluate the patient for admission. Differential Dx:Considerations: Include: cardiogenic shock, CHF, COPD Departure Time of Disposition: 19:07 Disposition: 09 ADMITTED INPATIENT Admitted to Inpatient Unit: to hospitalist Impression: Primary Impression: COPD (chronic obstructive pulmonary disease) Qualified Codes: J44.1 - Chronic obstructive pulmonary disease with (acute) exacerbation Additional Impression: Acute respiratory failure with hypoxia Additional Impression Text h/o copd p/w sob arrives in extremis, immediately on bipap, steroids and nebs given. EKG and CXR benign. Stablized on bipap. S/o night physician Dr. Ellis Plan to watch one hour on bipap, reassess and admit likely to PCU if remains stable. Condition: Guarded Education Educated: Patient Educated regarding: diagnosis, treatment Critical Care Note Total Time (mins): 30 Critical Care Note The very real possibility of a deterioration of this patient's condition required the highest level of my preparedness for sudden, emergent intervention. I provided critical care services, which included medication orders, frequent reevaluations of the patient's condition and response to treatment, ordering and reviewing test results, and discussing the case with various consultants. Excludes time spent performing separately billable procedures. The critical care time associated with the care of the patient was 30 minutes in the acute management of COPD requiring bipap Signature Scribe Signature: biju Attestation: LUCIE Valderrama MD Sep 13, 2024 18:06 SAMM ELLIS MD Sep 13, 2024 19:09
--- NOTE | 2024-09-13 18:08 | ELECTROCARDIOGRAPH REPORT ---
[facility] Test Date: 2024-09-13 Test Time: 18:05:27 Pat Name: KAYLIE WISE Department: [facility]- Patient ID: 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 Reading MD: Dr. Salvatore Prather Measurements Intervals [place] Rate: 115 P: 82 MA: 134 QRS: 90 QRSD: 120 T: 56 QT: 339 QTc: 469 Interpretive Statements Sinus tachycardia RBBB and LPFB Baseline wander in lead(s) V6 Electronically Signed On 09-17-2024 20:04:[address] Salvatore Prather Please click the below link to view image of tracing.
[2024-09-13 18:25] LABS: MEAN PLATELET VOLUME 7.4 FL (7.4-10.4); RED CELL DISTRIBUTION WIDTH 17.4 % (11.5-14.5)
--- NOTE | 2024-09-13 18:36 | RADIOLOGY REPORT ---
DI CHEST,SINGLE VIEW, HISTORY: CP COMPARISON: DI CHEST,SINGLE VIEW on DOS: 09/02/24, DI CHEST,SINGLE VIEW on DOS: 08/10/24, DI CHEST,SINGL E VIEW on DOS: 03/09/24 DI CHEST,SINGLE VIEW on DOS: 09/02/24, DI CHEST,SINGLE VIEW on DOS: 08/10/24, DI CHEST,SINGLE VIEW on DO S: 03/09/24 TECHNICAL DATA: 1 view of the chest was obtained. FINDINGS: Lines and tubes: None Cardiomediastinal silhouette: normal Pulmonary vasculature: normal Lung expansion: normal Lung airspace: Bibasilar patchy opacities. Lung interstitium: Prominent Pleura: normal Pneumothorax: no Bones: Unremarkable Other: no IMPRESSION: Similar lung aeration to prior with bibasilar airspace opacities and interstitial prominence.
[2024-09-13 18:59] LABS: CREATININE 0.87 MG/DL (0.60-1.10); PRO BRAIN NATRIURETIC PEPTIDE 352 PG/ML (0-450); TOTAL CARBON DIOXIDE 21.4 MMOL/L (24-32); eCRCL 75 ML/MIN; eGFR 86 ML/MIN
[2024-09-13 19:18] LABS: ABG BASE EXCESS -4.9 mmol/L (-2.0-3.0); ABG HCO3 18.0 mmol/L (21.0-28.0); ABG OXYGEN SATURATION 98.6 % (94.0-98.0); ABG PCO2 (T) 27.0 mmHg (35.0-48.0); ABG PH (T) 7.439 (7.350-7.450); ABG PO2 (T) 105.1 mmHg (83.0-108.0); ALLEN'S TEST Modified; FCOHb 0.6 % (0.5-1.5); FHHb 1.4 % (0.0-5.0); FIO2 40.0 mmHg/%; FMetHb 0.3 % (0.0-1.5); FO2Hb 97.7 % (94.0-98.0); MODE MASK - BIPAP; PATIENT TEMPERATURE 36.7; RESPIRATORY RATE 12 b/min; TOTAL HEMOGLOBIN 12.4 G/dl (13.5-17.5)
[2024-09-13] MEDS: CefTRIAXone/D5W-Rocephin 1gm 50 ML IV ONE (20:16)
[2024-09-13] MEDS ORDERED: magnesium sulf-water 4G/100mL 100 ML IV PRN (21:15)
[2024-09-13] MEDS ORDERED: magnesium sulf-water 2g/50mL 50 ML IV PRN (21:15)
[2024-09-13] MEDS ORDERED: magnesium Cl slow-release 64mg tablet PO PRN (21:15)
[2024-09-13] MEDS ORDERED: HYDROcodone/acetaminophen 5mg/325mg tablet PO PRN (21:15)
[2024-09-13] MEDS ORDERED: ondansetron/PF 4mg/2ml inj IV PRN (21:15)
[2024-09-13] MEDS ORDERED: potassium Cl 20 mEq SR tablet PO PRN ×2 (21:15)
[2024-09-13] MEDS ORDERED: potassium Cl 40MEQ/1/2NS 520ml 520 ML IV PRN (21:15)
[2024-09-13 21:33] LABS: LEUKOCYTE ESTERASE ,URINE MODERATE (Neg); NITRITES, URINE NEGATIVE (Neg); OCCULT BLOOD,URINE TRACE-INTACT (Neg)
--- NOTE | 2024-09-13 21:36 | HISTORY AND PHYSICAL-Residence ---
History & Physical Providers to CC Resident Creating Document: KENNEDY TSAIBEYOLI POMPA ~ History of Present Illness Primary Medical Doctor: None Reason for Admit\Complaint: COPD EXACERBATION History of Present Illness 73-year-old male with history of COPD, chronic hypoxic respiratory failure on 2.5-3 L home oxygen continuous via nasal cannula, history of PE presented to the ED with chief complaints of worsening shortness of breath. He started having symptoms yesterday in the afternoon. He does not know what changed from his prior admission here last month. He has been compliant with his medications and breathing treatments. States he is unable to talk at this time and wants a breathing treatment. His primary care provider with PA. He quit smoking two years ago used to smoke 1-1-1/2 pack of cigarettes (40 pack-years). 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 Denies significant chest pains, diaphoresis, fevers/chills, nasal congestion, expectoration, palpitations, or weight loss/weight gain. Discussed advanced care directives and he wishes to be a full code. Allergies: Coded Allergies: aspirin (Unverified Allergy, Unknown, 09/13/24) naproxen (Verified Allergy, Unknown, hives, swelling, 09/13/24) Home Medications Home Medications Active Keflex* (Cephalexin HCl) 500 Mg Capsule 1 Cap PO Q12H 10 Days Culturelle (Lactobacillus Rhamnosus) 10 Billion Cell Capsule 1 Cap PO BID 30 Days Cefdinir 300 Mg Capsule 1 Cap PO Q12H 2 Days Senna Plus 8.6-50 mg Tablet (Sennosides/Docusate Sodium) 8.6 Mg-50 Mg Tablet 2 Tab PO TID 30 Days Reported [place] 5/325 MG (Acetaminophen/Hydrocodone Bitart) 5 Mg/325 Mg Tablet 1 Tab PO Q4H PRN Hydrocodone-Apap 10-325 Tablet (Acetaminophen/Hydrocodone Bitart) 10mg/325mg Tablet 1 Tablet PO Q4H PRN Tylenol (Acetaminophen) 325 Mg Tablet 650 Mg PO Q4H PRN Duoneb 2.5-0.5 Mg/3 Ml Soln (Ipratropium/Albuterol Sulfate) 0.5 Mg-3 Mg (2.5 Mg Base)/3 Ml Ampul.neb 3 Ml IH Q4H PRN Lipitor* (Atorvastatin Calcium) 40 Mg Tablet 1 Tab PO HS Colace (Docusate Sodium) 100 Mg Capsule 1 Cap PO Q12H Mucinex (Guaifenesin) 600 Mg Tablet.sa 1 Tab PO Q12H Dulera 200 Mcg/5 Mcg Inhaler (Mometasone/Formoterol) 200 Mcg-5 Mcg/Actuation Hfa.aer.ad 2 Puffs INH Q12H Prilosec Otc (Omeprazole Magnesium) 20 Mg Tablet.dr 20 Mg PO DAILY Lopressor tablet (Metoprolol Tartrate) 25 Mg Tablet 25 Mg PO BID 12.5 MG = 1/2 TABLET HOLD FOR SBP LESS THAN 100 OR PULSE BELOW 60 Spiriva Respimat (Tiotropium [place]) 4 Gm Mist.inhal 2 Puffs PO DAILY Proair Hfa (Albuterol Sulfate) 1 Puff Inh 1 Puffs IH Q4H PRN Past Medical History Past Medical History COPD Chronic hypoxic respiratory failure 2.5-3 L continuous home oxygen nasal cannula PE Family History Family History: FH: lung cancer GRANDFATHER OR GRANDMOTHER MOTHER FH: throat cancer GRANDFATHER OR GRANDMOTHER Past Social History Smoking: Cigarettes Alcohol Use: Other Drug Use: None Lives with: Other Lives In: SNF ROS All Other Systems: Reviewed and Negative ROS Reviewed in full. All negative except for pertinent positive HPI. Constitutional: Denies: fever Respiratory: Reports: cough, orthopnea, shortness of breath, SOB with exertion Cardiovascular: Denies: chest pain Gastrointestinal: Denies: abdominal pain Exam Vitals: Vital Signs Date Time Temp Pulse Resp B/P (MAP) Pulse Ox O2 Delivery O2 Flow Rate FiO2 09/13/24 20:21 105 17 103/57 (72) 93 4.0 09/13/24 19:39 98.0 09/13/24 18:12 BiPAP+ N/A General: General: Awake and Alert, mild acute distress. On 4 L oxygen nasal cannula. HEENT: Conjunctiva pink, Sclera clear, Mucus Membranes dry Neck: Supple without masses and tenderness. Resp: Unlabored. Decreased breath sounds bilaterally. Heart: Tachycardic, Regular rhythm, normal S1 and S2, no rub, murmur or gallop. Abdomen: Soft and non tender no organomegaly. Normal bowel sounds x4 quadrant normoactive. No guarding or rigidity. Extremities: Normal ROM, no swelling, nontender. No cyanosis,clubbing or edema. 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 Skin: Bruises on bilateral upper extremity, otherwise: Warm and Dry. Diagnostic Data Last Recorded Lab Results: 09/13/24 1800 09/13/24 1800 Advance Care Planning Advanced Care plannin - 30 Minutes Additional Plan 73-year-old male with history of COPD, chronic hypoxic respiratory failure on 2.5-3 L home oxygen continuous via nasal cannula, history of PE presented to the ED with chief complaints of worsening shortness of breath. Acute on chronic hypoxemic respiratory failure Likely secondary to COPD exacerbation On home oxygen; 2.5 L-three, now on 4 L oxygen nasal cannula Was initially on BiPAP, currently on 4 L oxygen nasal cannula EKG: Sinus tach, no acute ST/T-wave changes noted No signs of volume overload or pulmonary congestions CXR Maintain oxygen saturation between 89-92%; on 3 L supplemental O2 via nasal canula, use BiPAP if needed Solu-Medrol 125 mg IV bolus given Solu-Medrol 60 Mg IV twice daily Ceftriaxone 1 g IV daily Azithromycin 500 mg IV dailyx3 days IVF NS at 50 mL/hour DuoNeb nebulization every 4 hours as scheduled and every 4 hours as needed Incentive spirometry Follow up with flu and COVID testing, UA, blood and sputum cultures. Mild Hyponatremia History of PE, No acute Pulmonary embolism- CTA ruled out in previous admission 07/2024 History of constipation, stool softeners p.r.n. Awaiting med rec Code Status: Full code DVT prophylaxis: Lovenox Analgesia/sedation: None Line/tube: PIV GI prophylaxis: None Nutrition: Heart healthy Prognosis: Guarded Disposition: Continue medical management. Anahy Tsai MD. IM Resident PGY-3 Patient evaluated with the resident using HIPPA compliant AV device, agree with plan as discussed In addition to COPD exacerbation mgt, also consult cardiology to evaluate for NSTEMI Jadiel Ojeda MD Date of Service: Sep 13, 2024 Billing Provider: JADIEL OJEDA MD, ELIZABETH, RES Sep 13, 2024 21:36 JADIEL OJEDA MD Sep 14, 2024 03:30
[2024-09-13 21:38] LABS: UA COLLECTION TYPE CLN CATCH MIDSTREAM
[2024-09-13 21:39] LABS: SQUAMOUS EPITHELIAL CELL,UR NONE SEEN /LPF (FEW)
[2024-09-13] MEDS: ipratropium/albuterol 3ml nebule NEB SCH (21:56)
[2024-09-13] MEDS: normal saline 1000ml 1,000 ML IV SCH (23:49)
[2024-09-14] VITALS (22 sets, daily range): BP systolic 112–117; BP diastolic 64–73; PULSE 66–115; RESP 15–22; TEMP 97.8–98.7; O2SAT 93–98
[2024-09-14] MEDS: mag hydrox/Alum hydrox/simeth 30ml oral suspension PO PRN (04:54)
[2024-09-14] MEDS: albuterol 2.5 MG/3 ML nebule NEB PRN (05:35)
[2024-09-14 05:59] LABS: MEAN PLATELET VOLUME 7.6 FL (7.4-10.4); RED CELL DISTRIBUTION WIDTH 17.7 % (11.5-14.5)
[2024-09-14 06:01] LABS: INR 1.1 INR
[2024-09-14 06:22] LABS: CREATININE 0.84 MG/DL (0.60-1.10); PHOSPHORUS 4.4 MG/DL (2.3-4.5); TOTAL CARBON DIOXIDE 21.1 MMOL/L (24-32); eCRCL 78 ML/MIN; eGFR 89 ML/MIN
[2024-09-14] MEDS ORDERED: LACT1CAP26 PO (06:33)
[2024-09-14] MEDS ORDERED: SENN-36 PO (06:35)
[2024-09-14] MEDS: K and/or MAG REPLACEMENT MC SCH (08:00)
[2024-09-14] MEDS: CefTRIAXone/D5W-Rocephin 1gm 50 ML IV SCH (09:24)
[2024-09-14] MEDS: enoxaparin 40mg/0.4ml syringe SUBCUT SCH (09:25)
[2024-09-14] MEDS: HYDROcodone/acetaminophen 10/325mg tab PO PRN (09:35)
[2024-09-14] MEDS: azithromycin/NS 500mg/250ml 250 ML IV SCH (10:17)
--- NOTE | 2024-09-14 18:27 | CARDIOLOGY REPORT ---
APPROVED REPORT EXAM: Comprehensive 2D, Doppler, and color-flow Echocardiogram. 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 237.9 cm/s AoV VTI 40.3 cm AO Peak GR. 22.6 mmHg AO Mean GR. 11 mmHg LVOT VTI 28.95 cm LVOT Peak Rohan. 143.4 cm/s PAM(VTI)/BSA 2.26 cm2/m2 PAM (VTI) 2.26 cm2 Mitral Valve MV E Velocity 90.4 cm/s MV Peak Gr. 6 mmHg MV DECEL TIME 184 ms MV A Velocity 116.0 cm/s MV Mean Gr. 3 mmHg MV PHT 60 ms E/A Ratio 0.8 MVA (PHT) 3.67 cm2 MV KYqs211.9 cm/sMV VMean83.3 cm/s MVA VTI3.61 cm2MV VTI25.3 cm TDI Lateral E' P. V9.42 cm/s E/Lateral E' 9.6 Tricuspid Valve TR P. Velocity 239 cm/s RAP ESTIMATE 10 mmHg TR Peak Gr. 23 mmHg RVSP 33 mmHg LEFT VENTRICLE Normal LV size and wall thickness. Overall systolic function is normal. Overall LVEF is 60%. RIGHT VENTRICLE Right ventricle is moderately dilated with normal function. Estimated PA systolic pressure is 33 mmHg . ATRIA The left atrium size is normal. AORTIC VALVE Trileaflet AV appears sclerotic and calcified without stenosis. Mild insufficiency. MITRAL VALVE Mild Moderate MV annular calcification without stenosis. Mild regurgitation. TRICUSPID VALVE TV appears structurally normal with trace regurgitation. PULMONIC VALVE Pulmonic valve is not well visualized. GREAT VESSELS The aortic root is normal in size. PERICARDIUM Grossly normal pericardium. No pericardial effusion seen. Other Information Study Quality: Poor, TDS due to patients respiratory status and body habitus. Conclusion Normal LV size and wall thickness. Overall systolic function is normal. Overall LVEF is 60%. Right ventricle is moderately dilated with normal function. Estimated PA systolic pressure is 33 mmHg . The left atrium size is normal. Trileaflet AV appears sclerotic and calcified without stenosis. Mild insufficiency. Mild Moderate MV annular calcification without stenosis. Mild regurgitation. TV appears structurally normal with trace regurgitation. Grossly normal pericardium. No pericardial effusion seen.
[2024-09-14] MEDS: metoprolol tartrate 12.5mg (1/2 tablet) PO SCH (20:32)
[2024-09-14] MEDS: guaiFENesin ER 600mg tablet PO SCH (20:32)
--- NOTE | 2024-09-14 20:32 | PROGRESS NOTE ---
Daily Progress Note Providers to CC ~ Antibiotic Timeout Antibiotic Ordered?: Yes Subjective The patient's breathing is improved from that of admission status however the patient is still feels rather weak and fatigued. The patient has no other complaints Objective Vital Signs Date Time Temp Pulse Resp B/P (MAP) Pulse Ox O2 Delivery O2 Flow Rate FiO2 09/14/24 18:58 102 18 Nasal Cannula 3.0 09/14/24 18:52 95 32 09/14/24 18:00 98.1 115/64 (81) Result Diagram: 09/14/2441809/14/24418 Gen. No acute distress alert and oriented 4 Lungs clear to ascultation bilaterally, no wheezes rales or rhonchi appreciated Heart normal sinus rhythm no murmurs rubs or clicks noted Abdomen soft nontender bowel sounds are normoactive Lower extremities no clubbing cyanosis, nor edema appreciated bilaterally Coagulation Studies Laboratory Tests Test 09/14/24 04:19 Prothrombin Time 10.8 SECONDS (9.0-12.0) INR International Normalized Ratio 1.1 INR Coagulation Comments Problem\Assessment\Plan Problems/Diagnosis: (1) COPD exacerbation # acute on chronic respiratory failure on 2-1/2-3 L oxygen at baseline # secondary to acute exacerbation of chronic COPD IV Solu-Medrol IV Rocephin IV azithromycin PRN DuoNeb and PRN albuterol nebs Incentive spirometer # hyponatremia Essentially unchanged Monitor daily CMP # history of PE # mildly elevated high sensitivity troponin likely secondary to type 2 mi Secondary to acute respiratory failure Continue metoprolol tartrate Unable to administer aspirin as the patient has an allergy to aspirin # DVT prophylaxis SQ Lovenox Disposition: Awaiting physical therapy Date of Service: Sep 14, 2024 Billing Provider: MARILEE CLIFFORD DO Common Visit Codes: [id number] INP/OBS CARE(HIGH) MARILEE CLIFFORD DO Sep 14, 2024 20:31
[2024-09-14] MEDS: docusate sod 100mg capsule PO SCH (20:33)
[2024-09-14] MEDS: budesonide 0.5mg/2ml UD nebule IH SCH (20:41)
[2024-09-14] MEDS ORDERED: ipratropium 0.5 MG/2.5ML nebule IH SCH (21:00)
[2024-09-14] MEDS ORDERED: albuterol 2.5 MG/3 ML nebule NEB SCH (21:00)
[2024-09-15] VITALS (14 sets, daily range): BP systolic 104–116; BP diastolic 56–66; PULSE 72–88; RESP 16–20; TEMP 97–97.5; O2SAT 92–98
[2024-09-15 05:50] LABS: MEAN PLATELET VOLUME 7.1 FL (7.4-10.4); RED CELL DISTRIBUTION WIDTH 17.7 % (11.5-14.5)
[2024-09-15 06:05] LABS: CREATININE 0.91 MG/DL (0.60-1.10); PHOSPHORUS 2.4 MG/DL (2.3-4.5); TOTAL CARBON DIOXIDE 24.3 MMOL/L (24-32); eCRCL 72 ML/MIN; eGFR 81 ML/MIN
[2024-09-15] MEDS: pantoprazole 40mg Tablet.DR PO SCH (09:58)
--- NOTE | 2024-09-15 20:31 | PROGRESS NOTE ---
Daily Progress Note Providers to CC ~ Antibiotic Timeout Antibiotic Ordered?: Yes Subjective The patient is states his breathing is pretty good and he is at his baseline however he did not do so well with physical therapy in his awaiting rehab placement Objective Vital Signs Date Time Temp Pulse Resp B/P (MAP) Pulse Ox O2 Delivery O2 Flow Rate FiO2 09/15/24 18:20 15 09/15/24 16:41 80 Nasal Cannula 3.0 09/15/24 16:35 96 32 09/15/24 10:00 97.3 112/66 (81) Result Diagram: 09/15/24 04509/15/24450 Gen. No acute distress alert and oriented 4 Lungs clear to ascultation bilaterally, no wheezes rales or rhonchi appreciated Heart normal sinus rhythm no murmurs rubs or clicks noted Abdomen soft nontender bowel sounds are normoactive Lower extremities no clubbing cyanosis, nor edema appreciated bilaterally Coagulation Studies Laboratory Tests Test 09/14/24 04:19 Prothrombin Time 10.8 SECONDS (9.0-12.0) INR International Normalized Ratio 1.1 INR Coagulation Comments Problem\Assessment\Plan Problems/Diagnosis: (1) COPD exacerbation # acute on chronic respiratory failure on 2-1/2-3 L oxygen at baseline # secondary to acute exacerbation of chronic COPD IV Solu-Medrol IV Rocephin IV azithromycin PRN DuoNeb and PRN albuterol nebs Incentive spirometer 09/15 improved # hyponatremia Resolved Monitor daily CMP # history of PE # mildly elevated high sensitivity troponin likely secondary to type 2 mi Secondary to acute respiratory failure Continue metoprolol tartrate Unable to administer aspirin as the patient has an allergy to aspirin # DVT prophylaxis SQ Lovenox Disposition: Patient remains significantly weak and is requiring significant assitance with ambulation. Case management is working on rehab placement Date of Service: Sep 15, 2024 Billing Provider: MARILEE CLIFFORD DO Common Visit Codes: [id number] INP/OBS CARE(HIGH) MARILEE CLIFFORD DO Sep 15, 2024 20:31
[2024-09-16] VITALS (16 sets, daily range): BP systolic 109–124; BP diastolic 68; PULSE 68–103; RESP 16–22; TEMP 97.7–98.1; O2SAT 92–96
[2024-09-16 05:44] LABS: MEAN PLATELET VOLUME 7.4 FL (7.4-10.4); RED CELL DISTRIBUTION WIDTH 18.2 % (11.5-14.5)
[2024-09-16 05:59] LABS: CREATININE 0.77 MG/DL (0.60-1.10); PHOSPHORUS 2.1 MG/DL (2.3-4.5); TOTAL CARBON DIOXIDE 22.9 MMOL/L (24-32); eCRCL 85 ML/MIN; eGFR > 90 ML/MIN
[2024-09-16] MEDS: polyethylene glycol 3350 17gm powd pack PO ONE (12:28)
--- NOTE | 2024-09-16 14:22 | RADIOLOGY REPORT ---
Exam: CT CT ABDOMEN PELVIS History: sharp right lower quadrant abdominal pain COMPARISON: CT CT ABDOMEN PELVIS on DOS: 05/21/24 Technique: Multidetector spiral CT of the abdomen and pelvis was performed from lung bases to pubic s ymphysis. Intravenous contrast was administered during this examination. Portal venous imaging was o btained. Axial, coronal and sagittal multiplanar reformats were performed by the technologist on a [employer] workstation. Radiation Dose : 1. Abdomen/Pelvis: CTDIvol 18.8mGy, DLP 1035.4 mGy*cm. Findings: Lung Bases: Left lower lobe airspace consolidation. Right basilar subsegmental atelectasis/consolidat ion. Liver: The liver is normal in size. No focal lesions. Normal hepatic vascular enhancement. Gallbladder and Biliary Tree: Unremarkable Spleen: Unremarkable Pancreas: The pancreas is normal in appearance without focal lesions or abnormal enhancement. Adrenal Glands: Unremarkable Kidneys: No hydronephrosis. Bladder: Distended. Mild bladder wall thickening. Bowel: The stomach is grossly normal in appearance. Nonspecific bowel-gas pattern with mild fluid-andry led distention of small-bowel loops. Moderate colonic stool. The appendix is not visualized; however, no secondary findings of acute appendicitis identified. Ascites: Absent Lymphadenopathy: No mesenteric, retroperitoneal or periportal lymphadenopathy. Abdominal Wall and Mesentery: Unremarkable. Vasculature: The visualized abdominal aorta is normal in size and caliber. There is calcified atheros clerotic plaque involving the aorta and its branches. Abdominal and pelvic vessels demonstrate normal enhancement. Pelvic Organs: Unremarkable Musculoskeletal: No aggressive focal bony lesions, acute fractures or dislocation. Degenerative shane es of the spine. Degenerative changes of bilateral hips. IMPRESSION: Moderate volume diffuse colonic stool. Mild fluid-filled distention of small bowel; possibly mild enteritis. Distended bladder with mild diffuse urinary bladder wall thickening. This is nonspecific but can be s een in cystitis. Left lower lobe airspace disease.
--- NOTE | 2024-09-16 20:42 | DISCHARGE SUMMARY ---
Discharge Summary Providers to CC ~ Discharge Summary Admission Diagnosis: COPD EXACERBATION Hospital Course DATE OF ADMISSION: 09/13/2024 DATE OF DISCHARGE: 09/16/2024 Discharge Diagnosis\\Comment: Acute on chronic respiratory failure with a 2-1/2 3 L at baseline of oxygen, acute exacerbation of chronic COPD, hyponatremia, type 2 mi Operations\\Procedures: None Consultants: None Complications: None Condition on DC: Stable for transfer Discharge Summary: The patient was admitted by resident physician KAILEE Lemus, under the supervision of JADIEL Proctor MD with the following HPI:"73-year-old male with history of COPD, chronic hypoxic respiratory failure on 2.5-3 L home oxygen continuous via nasal cannula, history of PE presented to the ED with chief complaints of worsening shortness of breath. He started having symptoms yesterday in the afternoon. He does not know what changed from his prior admi ssion here last month. He has been compliant with his medications and breathing treatments. States he is unable to talk at this time and wants a breathing treatment. His primary care provider with NH. He quit smoking two years ago used to smoke 1-1-1/2 pack of cigarettes (40 pack-years). 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 Denies significant chest pains, diaphoresis, fevers/chills, nasal congestion, expectoration, palpitations, or weight loss/weight gain. Discussed advanced care directives and he wishes to be a full code." With nebulizer treatments and IV Solu-Medrol the patient is breathing improved significantly by the however the patient remained weak and did not do well with physical therapy and required transferred to rehab the patient did have hyponatremia on admission With a serum sodium of 131 this resolved by the morning of and was 136. The patient also has a minimally elevated high sensitivity troponin on the troponin of 103 with the upper limits of normal of 75 this was secondary to the patient's acute exacerbation of chronic COPD that is a type 2 mi the patient did not have any chest pain or signs of acute coronary syndrome during hospitalization. His echocardiogram demonstrated normal LVEF of 60% and normal LV size and thickness there were no significant findings on echocardiogram. Gen. No acute distress alert and oriented 4 Lungs clear to ascultation bilaterally, no wheezes rales or rhonchi appreciated Heart normal sinus rhythm no murmurs rubs or clicks noted Abdomen soft mild right lower quadrant tenderness bowel sounds are normoactive Lower extremities no clubbing cyanosis, nor edema appreciated bilaterally In the morning of discharge the patient did complain of abdominal discomfort which was centered at the right lower quadrant the patient does have his appendix and a noncontrast CT scan abdomen and pelvis was obtained-which demonstrated moderate volume diffuse colonic stool possible mild enteritis. The patient felt ready to be discharged and was medically cleared to be discharged to post acute rehab on 09/16/2024 with a 10 day course of prednisone The patient was seen and evaluated on day of discharge. Time spent on discharge 35 minutes *Problems/Diagnosis: (1) COPD exacerbation Status: Acute Total Time Spent on D/C: > 30 Minutes Date of Service: Sep 16, 2024 Billing Provider: MARILEE CLIFFORD DO Common Visit Codes: 27349-YRA/OBS DISCH DAY >30min MARILEE CLIFFORD DO Sep 16, 2024 20:42
== END 2024-09-16 16:59 | DRG 189 ==
LOC: ER 17:58 → ED HOLD 20:22 → ORTHO 4S 22:32
PROVIDERS: ADMIT Internal Medicine; ATTEND Family Medicine
PROC: 5A09357 Assistance with Respiratory Ventilation, Less than 24 Consecutive Hours, Continuous Positive Airway Pressure (ICD-10-PCS; principal; 2024-09-13)
PROC: BW211ZZ Computerized Tomography (CT Scan) of Abdomen and Pelvis using Low Osmolar Contrast (ICD-10-PCS; 2024-09-16)
DX: J96.21 Acute and chronic respiratory failure with hypoxia (principal); I21.A1 Myocardial infarction type 2; J44.1 Chronic obstructive pulmonary disease with (acute) exacerbation; E87.1 Hypo-osmolality and hyponatremia; J43.9 Emphysema, unspecified; Z86.711 Personal history of pulmonary embolism; Z87.891 Personal history of nicotine dependence; Z79.899 Other long term (current) drug therapy
CPT/HCPCS: 36415; 36600; 71045; 74176; 80048; 81001; 82803; 83605; 83735; 83880; 84100; 84484; 85018; 85025; 85610; 87040; 87081; 87088; 93005; 93306; 94640; 94760; 96374; 96375; 97116; 97161; 99291; A4615; A6258; G0378; J0456; J0696; J1650; J2919; J7030

== ENCOUNTER 2024-09-17 10:56 | Inpatient (IN) | payer OTHER, MEDICARE, MEDICAID ==
[2024-09-17] VITALS (7 sets, daily range): BP systolic 91–108; BP diastolic 54–65; PULSE 79–90; RESP 15–22; TEMP 97.5–98.6; O2SAT 94–97
[~2024-09-17] VITALS: Ht 182.9 cm; Wt 73.0 kg
[~2024-09-17 10:56] MED LIST changes: -CEFD300C3 PO; -CEPH-585 PO; -SENN-302 PO; +SENN-36 PO
[2024-09-17] MEDS: ondansetron/PF 4mg/2ml inj IV ONE (11:15)
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
[2024-09-17 11:32] LABS: MEAN PLATELET VOLUME 6.7 FL (7.4-10.4); RED CELL DISTRIBUTION WIDTH 17.8 % (11.5-14.5)
[2024-09-17 11:47] LABS: CREATININE 0.80 MG/DL (0.60-1.10); TOTAL CARBON DIOXIDE 26.9 MMOL/L (24-32); eCRCL 82 ML/MIN; eGFR > 90 ML/MIN
[2024-09-17 12:06] LABS: BANDS% (MANUAL) 1.0 % (0-10); EOSINOPHILS % (MANUAL) 1.0 % (0-6); LYMPHOCYTES % (MANUAL) 5.0 % (21-51); METAMYLEOCYTES% (MANUAL) 2.0 % (0-0); MONOCYTES % (MANUAL) 7.0 % (2-12); NEUTROPHILS % (MANUAL) 84.0 % (42-75)
[2024-09-17 12:07] LABS: PLATELET ESTIMATE NORMAL
[2024-09-17 12:09] LABS: ELLIPTOCYTES FEW
--- NOTE | 2024-09-17 12:17 | RADIOLOGY REPORT ---
Exam: CT CT ABDOMEN PELVIS History: Abdominal Pain COMPARISON: CT CT ABDOMEN PELVIS on DOS: 09/16/24, CT CT ABDOMEN PELVIS on DOS: 05/21/24 Technique: Multidetector spiral CT of the abdomen and pelvis was performed from lung bases to pubic s ymphysis. Intravenous contrast was administered during this examination. Portal venous imaging was o btained. Axial, coronal and sagittal multiplanar reformats were performed by the technologist on a [employer] workstation. Radiation Dose : 1. Abdomen/Pelvis: CTDIvol 17.7mGy, DLP 891.1 mGy*cm. Findings: Lung Bases: No acute or significant lung base finding. Normal heart size. No pleural or pericardial effusion. Liver: The liver is normal in size. No focal lesions. Normal hepatic vascular enhancement. Gallbladder and Biliary Tree: Unremarkable Spleen: Unremarkable Pancreas: The pancreas is normal in appearance without focal lesions or abnormal enhancement. Adrenal Glands: Unremarkable Kidneys: No hydronephrosis. Bladder: Distended urinary bladder. Bowel: The stomach is grossly normal in appearance. Severe bowel wall thickening of the ascending col on. The appendix is not visualized; however, no secondary findings of acute appendicitis identified. Ascites: Absent Lymphadenopathy: No mesenteric, retroperitoneal or periportal lymphadenopathy. Abdominal Wall and Mesentery: Small fat containing supraumbilical hernia. Vasculature: The visualized abdominal aorta is normal in size and caliber. There is calcified atheros clerotic plaque involving the aorta and its branches. Abdominal and pelvic vessels demonstrate normal enhancement. Pelvic Organs: Unremarkable Musculoskeletal: No aggressive focal bony lesions, acute fractures or dislocation. Degenerative shane es of the spine. IMPRESSION: Severe bowel wall thickening of the ascending colon. This is suspicious for severe infectious or infl ammatory colitis. Recommend colonoscopy after acute symptoms have resolved to exclude underlying neoplastic process.
[2024-09-17 12:47] LABS: LEUKOCYTE ESTERASE ,URINE LARGE (Neg); NITRITES, URINE NEGATIVE (Neg); OCCULT BLOOD,URINE TRACE-INTACT (Neg)
[2024-09-17] MEDS: morphine 4 MG/ML inj SYRINge IV PRN (12:50)
[2024-09-17 12:53] LABS: UA COLLECTION TYPE CLN CATCH MIDSTREAM; WBC CLUMPS,URINE FEW /HPF (NEGATIVE)
[2024-09-17] MEDS ORDERED: magnesium sulf-water 4G/100mL 100 ML IV PRN (12:55)
[2024-09-17] MEDS ORDERED: potassium Cl 20 mEq SR tablet PO PRN ×2 (12:55)
[2024-09-17] MEDS ORDERED: magnesium sulf-water 2g/50mL 50 ML IV PRN (12:55)
[2024-09-17] MEDS ORDERED: ondansetron/PF 4mg/2ml inj IV PRN (12:55)
[2024-09-17] MEDS ORDERED: magnesium Cl slow-release 64mg tablet PO PRN (12:55)
[2024-09-17] MEDS ORDERED: HYDROcodone/acetaminophen 5mg/325mg tablet PO PRN (12:55)
[2024-09-17] MEDS ORDERED: potassium Cl 40MEQ/1/2NS 520ml 520 ML IV PRN (12:55)
[2024-09-17 12:56] LABS: SQUAMOUS EPITHELIAL CELL,UR NONE SEEN /LPF (FEW)
[2024-09-17] MEDS: piperacillin/tazo 3.375gm/50ml 50 ML IV ONE (13:20)
[2024-09-17] MEDS: normal saline 1000ml 1,000 ML IV SCH (14:07)
[2024-09-17] MEDS: metroNIDAZOLE-Flagyl 500mg/NS 100 ML IV SCH (14:08)
[2024-09-17] MEDS: ciprofloxacin lact 400MG/200ML 200 ML IV SCH (16:21)
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
[2024-09-17] MEDS: heparin, porcine 5000 units/ml vial SQ SCH (20:16)
[2024-09-17] MEDS ORDERED: polyethylene glycol 3350 17gm powd pack PO SCH (21:00)
[2024-09-17] MEDS: albuterol 2.5 MG/3 ML nebule NEB PRN (22:39)
[2024-09-18] VITALS (16 sets, daily range): BP systolic 103–123; BP diastolic 62–72; PULSE 62–105; RESP 16–28; TEMP 97.5–98.1; O2SAT 91–97
[2024-09-18] MEDS: HYDROcodone/acetaminophen 10/325mg tab PO PRN (03:15)
[2024-09-18 06:50] LABS: MEAN PLATELET VOLUME 7.2 FL (7.4-10.4); RED CELL DISTRIBUTION WIDTH 18.0 % (11.5-14.5)
[2024-09-18 07:17] LABS: CREATININE 0.74 MG/DL (0.60-1.10); TOTAL CARBON DIOXIDE 23.6 MMOL/L (24-32); eCRCL 89 ML/MIN; eGFR > 90 ML/MIN
[2024-09-18] MEDS ORDERED: HYDROcodone/acetaminophen 5mg/325mg tablet PO PRN (19:10)
--- NOTE | 2024-09-18 19:13 | PROGRESS NOTE ---
Daily Progress Note Providers to CC ~ Antibiotic Timeout Antibiotic Ordered?: Yes Subjective Patient was sitting on recliner and he was sleeping the moment I introduced myself he started complaining of pain over right lower abdomen and and wanted to get stronger pain medication. As per nursing staff he is getting pain medication almost every 2 hours currently ( he is getting [place] was and in between he is getting IV morphine ) . Patient is well known to me from rehab and from his previous admissions. Objective Vital Signs Date Time Temp Pulse Resp B/P (MAP) Pulse Ox O2 Delivery O2 Flow Rate FiO2 09/18/24 18:49 18 09/18/24 18:33 94 Nasal Cannula 3.0 09/18/24 18:00 97.7 99 108/66 (80) 09/18/24 13:42 32 Result Diagram: 09/18/24 0508 09/18/24 0508 General-patient not in any acute distress, alert awake oriented, chronically ill-appearing HEENT-atraumatic normocephalic, neck supple without elevated JVD, no thyromegaly or carotid bruit. No lymphadenopathy bilaterally. Hard of hearing Eyes-no icterus or pallor seen in eyes, poor eye contact Chest-decreasedbreath sounds to auscultation bilaterally, breathing nonlabored no tachypnea, no wheezing, no crepitation, no crackles. Heart-S1-S2 normal, regular heart rate no murmur Abdomen bowel sounds positive on auscultation, soft nondistended , subjective tenderness over right lower abdomen on palpation. no guarding, no rigidity Skin no active skin rash Neurology-grossly intact, nonfocal alert awake oriented Extremity- no pedal edema able to move all 4 extremities Psychiatry - patient is not confused or agitated cooperated during physical examination Problem\Assessment\Plan Patient is 73-year-old male with COPD, chronic hypoxic respiratory failure on 2.5-3 L home oxygen continuous via nasal cannula, history of PE Cervical myelopathy. Cervical spinal stenosis and compression of the cervical spinal cord. He came back from rehab due to his concern regarding right lower abdomen pain admitted for acute enteritis . As per patient he passed two stools today denied any nausea or vomiting. CT scan showed Severe bowel wall thickening of the ascending colon. This is suspicious for severe infectious or inflammatory colitis. WBC 18.2 on admission could be related to steroids or acute colitis further workup ordered for sepsis. Cultures so far negative. Patient will likely need colonoscopy in outpatient setting after hospital discharge I am suspicious that patient has pain medication seeking behavior. Continue with current pain medications Patient was discharged from the hospital by Dr. Wong on September 16, 2024 in he was admitted in rehab yesterday , was on steroids. No other change in his medical history as he was just discharged yesterday. Code status discussed with the patient patient wishes to stay full code. home medication reconciliation updated in electronic medical record . Patient's current condition is guarded we will continue to follow from hospitalist team in AM Date of Service: Sep 18, 2024 Billing Provider: VETO GUERRERO MD Common Visit Codes: [id number] INP/OBS CARE(HIGH) VETO GUERRERO MD Sep 18, 2024 19:13
[2024-09-18] MEDS: budesonide 0.5mg/2ml UD nebule IH SCH (20:00)
[2024-09-18] MEDS: metoprolol tartrate 12.5mg (1/2 tablet) PO SCH (20:31)
[2024-09-18] MEDS: ipratropium/albuterol 3ml nebule IH PRN (23:35)
[2024-09-19] VITALS (13 sets, daily range): BP systolic 96–108; BP diastolic 51–74; PULSE 58–91; RESP 15–24; TEMP 97.6–98.8; O2SAT 94–98
[2024-09-19 05:29] LABS: MEAN PLATELET VOLUME 6.8 FL (7.4-10.4); RED CELL DISTRIBUTION WIDTH 18.7 % (11.5-14.5)
[2024-09-19 05:47] LABS: CREATININE 0.67 MG/DL (0.60-1.10); TOTAL CARBON DIOXIDE 26.6 MMOL/L (24-32); eCRCL 98 ML/MIN; eGFR > 90 ML/MIN
[2024-09-19] MEDS: pantoprazole 40mg Tablet.DR PO SCH (07:10)
[2024-09-19] MEDS: ipratropium/albuterol 3ml nebule NEB SCH (07:31)
--- NOTE | 2024-09-19 08:00 | ELECTROCARDIOGRAPH REPORT ---
[facility] Test Date: 2024-09-18 Test Time: 17:04:12 Pat Name: KAYLIE WISE Department: ORTHO Room: ORTHO [facility] A Gender: M Abalone Sheller: : 1950 Requested By: VETO GUERRERO Order Number: [id number] Reading MD: Dr. JASSON Mack Measurements Intervals [place] Rate: 94 P: 50 AR: 128 QRS: 42 QRSD: 125 T: 9 QT: 357 QTc: 447 Interpretive Statements Sinus rhythm Right bundle branch block Electronically Signed On 09-19-2024 16:13:[address] JASSON Mack Please click the below link to view image of tracing.
[2024-09-19 09:12] LABS: HBSAG SCREEN Negative (Negative); HEP B CORE AB, IGM Negative (Negative); HEP B CORE AB, TOT Negative (Negative)
[2024-09-19] MEDS ORDERED: oxyCODONE/APAP 5-325mg tablet PO PRN (13:55)
[2024-09-19] MEDS ORDERED: LidoCAINE 2% Topical Jelly 11mL syringe (UROJET) TOP ONE (15:25)
[2024-09-19 15:33] LABS: LEUKOCYTE ESTERASE ,URINE LARGE (Neg); NITRITES, URINE NEGATIVE (Neg); OCCULT BLOOD,URINE SMALL (Neg)
[2024-09-19 15:35] LABS: UA COLLECTION TYPE NON-SPECIFIED
[2024-09-19 15:46] LABS: SQUAMOUS EPITHELIAL CELL,UR FEW /LPF (FEW); WBC CLUMPS,URINE FEW /HPF (NEGATIVE)
--- NOTE | 2024-09-19 16:08 | RADIOLOGY REPORT ---
Indication: Severe right lower quadrant abdominal pain Technique: CT axial images of the abdomen and pelvis are obtained with intravenous contrast. Coronal and sagittal reformats were obtained. Radiation Dose Information: CTDI volume is 24.5 mGy. Dose-length product is 1300 mGy*cm Comparison: CT CT ABDOMEN PELVIS on DOS: 09/17/24, CT CT ABDOMEN PELVIS on DOS: 09/16/24, CT CT ABDOMEN PELVIS on DOS: 05/21/24 FINDINGS: Lung bases demonstrate small bilateral pleural effusions bilateral lower lobe airspace consolidation/ atelectasis, [id number]-right. Coronary artery calcification disease. Adrenal glands, spleen unremarkable. Fatty infiltration of the pancreas. 8 mm right hepatic lobe hyp odensity, too small to characterize. No CT evidence for cholelithiasis. Kidneys demonstrate no hydronephrosis. Stomach partially distended. Small bowel loops normal in caliber. Colonic diverticular disease. Exten sive bowel wall thickening of the cecum/ascending colon with mucosal hyperemia, bowel wall thickening . There is surrounding edema and stranding within the right paracolic gutter. There is less pronounced bowel wall thickening of the rectosigmoid colon. Abdominal aortic atherosclerotic disease. The celiac and superior mesenteric arteries are widely ramirez nt. The bilateral renal arteries are patent. Inferior mesenteric artery patent. Bladder partially distended. No free pelvic fluid. No inguinal lymphadenopathy. Moderate to advanced lumbar degenerative disc disease IMPRESSION: Severe bowel wall thickening/ edema and mucosal hyperemia of the cecum/ascending colon which can be s een with colitis, inflammatory disease. No evidence for acute bowel ischemia. Less pronounced bowel wall thickening of the rectosigmoid colon which could be secondary to proctocol itis, inflammatory disease. Atherosclerotic disease. Bibasilar pulmonary atelectasis / consolidation. Small bilateral pleural effusions. Other findings as described. Recommend colonoscopy once acute symptoms resolve to exclude underlying colonic lesion
[2024-09-19] MEDS: bisacodyl 5mg tablet.DR PO PRN (19:37)
--- NOTE | 2024-09-19 20:31 | PROGRESS NOTE ---
Daily Progress Note Providers to CC ~ Antibiotic Timeout Antibiotic Ordered?: Yes Subjective The patient continues to have severe right lower quadrant abdominal pain not controlled with [place] I ordered a CTA which was negative for ischemic colitis. The patient also has a UTI Objective Vital Signs Date Time Temp Pulse Resp B/P (MAP) Pulse Ox O2 Delivery O2 Flow Rate FiO2 09/19/24 19:34 89 96/58 (71) 09/19/24 18:55 18 09/19/24 18:00 98.8 95 Nasal Cannula 3.0 09/19/24 16:04 32 Result Diagram: 09/19/24 0501 09/19/24 0501 Gen. No acute distress alert and oriented 4 Lungs clear to ascultation bilaterally, no wheezes rales or rhonchi appreciated Heart normal sinus rhythm no murmurs rubs or clicks noted Abdomen soft severe right lower quadrant tenderness bowel sounds are normoactive Lower extremities no clubbing cyanosis, nor edema appreciated bilaterally Problem\Assessment\Plan # COPD chronic not in acute exacerbation Continue budesonide PRN albuterol PRN DuoNeb # infectious colitis Due to the severity of the patient's abdominal discomfort I ordered a CTA which was negative for ischemic bowel/ ischemic colitis Continue IV ciprofloxacin and IV metronidazole # history of cervical myopathy and cervical spinal canal stenosis compression of the cervical spinal cord Continue pain management # pyuria Possibly secondary to UTI/cystitis Urine culture is pending Continue IV ciprofloxacin Code status discussed with the patient patient wishes to stay full code. Date of Service: Sep 19, 2024 Billing Provider: MARILEE CLIFFORD DO Common Visit Codes: [id number] INP/OBS CARE(HIGH) MARILEE CLIFFORD DO Sep 19, 2024 20:31
[2024-09-20] VITALS (10 sets, daily range): BP systolic 94–114; BP diastolic 55–64; PULSE 3–83; RESP 16–20; TEMP 97.5–98.5; O2SAT 93–97
[2024-09-20] MEDS: mag hydrox/Alum hydrox/simeth 30ml oral suspension PO PRN (03:22)
[2024-09-20 06:02] LABS: MEAN PLATELET VOLUME 6.9 FL (7.4-10.4); RED CELL DISTRIBUTION WIDTH 18.4 % (11.5-14.5)
[2024-09-20 06:29] LABS: CREATININE 0.81 MG/DL (0.60-1.10); TOTAL CARBON DIOXIDE 24.9 MMOL/L (24-32); eCRCL 81 ML/MIN; eGFR > 90 ML/MIN
[2024-09-20 07:22] LABS: EOSINOPHILS % (MANUAL) 2.0 % (0-6); LYMPHOCYTES % (MANUAL) 14.0 % (21-51); METAMYLEOCYTES% (MANUAL) 1.0 % (0-0); MONOCYTES % (MANUAL) 7.0 % (2-12); NEUTROPHILS % (MANUAL) 76.0 % (42-75)
[2024-09-20 07:23] LABS: PLATELET ESTIMATE NORMAL
[2024-09-20] MEDS: ciprofloxacin 250mg tablet PO SCH (21:27)
--- NOTE | 2024-09-20 22:45 | PROGRESS NOTE ---
Daily Progress Note Providers to CC ~ Antibiotic Timeout Antibiotic Ordered?: Yes Subjective The patient can continues to experience moderate to significant right lower quadrant abdominal tenderness however this is improving in his white blood cell count has normalized. Objective Vital Signs Date Time Temp Pulse Resp B/P (MAP) Pulse Ox O2 Delivery O2 Flow Rate FiO2 09/20/24 22:00 97.5 77 16 114/64 (81) 94 Nasal Cannula 3.0 09/20/24 21:37 32 Result Diagram: 09/20/2452309/20/24 05 Gen. No acute distress alert and oriented 4 Lungs clear to ascultation bilaterally, no wheezes rales or rhonchi appreciated Heart normal sinus rhythm no murmurs rubs or clicks noted Abdomen soft severe right lower quadrant tenderness bowel sounds are normoactive Lower extremities no clubbing cyanosis, nor edema appreciated bilaterally Problem\Assessment\Plan # COPD chronic not in acute exacerbation Continue budesonide PRN albuterol PRN DuoNeb # infectious colitis Due to the severity of the patient's abdominal discomfort I ordered a CTA which was negative for ischemic bowel/ ischemic colitis Continue IV ciprofloxacin and IV metronidazole 09/20 white blood cell count has normalized # history of cervical myopathy and cervical spinal canal stenosis compression of the cervical spinal cord Continue pain management # pyuria Possibly secondary to UTI/cystitis Urine culture grew out lactobacillus- thus UTI is ruled out Code status discussed with the patient patient wishes to stay full code. Date of Service: Sep 20, 2024 Billing Provider: MARILEE CLIFFORD DO Common Visit Codes: [id number] INP/OBS CARE(HIGH) MARILEE CLIFFORD DO Sep 20, 2024 22:45
[2024-09-21] VITALS (9 sets, daily range): BP systolic 95–106; BP diastolic 55–62; PULSE 80–91; RESP 18–20; TEMP 97–97.9; O2SAT 92–95
[2024-09-21] MEDS: albuterol 2.5 MG/3 ML nebule NEB PRN (04:52)
[2024-09-21 06:15] LABS: MEAN PLATELET VOLUME 7.1 FL (7.4-10.4); RED CELL DISTRIBUTION WIDTH 17.9 % (11.5-14.5)
--- NOTE | 2024-09-21 19:44 | DISCHARGE SUMMARY ---
Discharge Summary Providers to CC ~ Discharge Summary Admission Diagnosis: Right lower abdominal pain, acute enteritis, chronic constipation , COPD Hospital Course DATE OF ADMISSION: 09/17/2024 DATE OF DISCHARGE: 09/21/2024 Discharge Diagnosis\\Comment: COPD chronic not in acute exacerbation, severe infectious colitis, history of cervical myopathy and cervical spine stenosis, pyuria UTI ruled out Operations\\Procedures: None Consultants: None Complications: None Condition on DC: Stable Discharge Summary: The patient is admitted by Dr. Marlena Rogers the following HPI:"Patient is 73-year-old male who came back from rehab due to his concern regarding right lower abdomen pain. As per patient he passed two stools today denied any nausea or vomiting. Patient was discharged from the hospital by Dr. Wong on September 16, 2024 in he was admitted in rehab yesterday. Patient came back from [facility] rehab today. No other change in his medical history as he was just discharged yesterday." The patient had severe bowel wall thickening of the ascending colon suspicious for severe infectious versus inflammatory colitis the patient is mildly elevated sed rate of 32 when I evaluated the patient in the morning of the he had severe right lower quadrant abdominal pain to the point where I ordered a CTA of the abdomen and pelvis which was negative for any ischemic colitis the patient did improve daily to the point where on the morning of the the patient's discomfort was mild and on exam the patient had some mild right lower quadrant tenderness however his the abdominal discomfort had improved daily significantly to the point where he only had minimal symptoms on the his pain medication was changed from [place] to Percocet which improved his pain management the patient also has severe cervical op and cervical spine stenosis in the past. The patient also on admission has a white blood cell count 03511 this resolved and normalized by the morning of the and was [address] and was improved further on day discharge 9600 The patient has chronic COPD in his on 2.5-3 L of oxygen at home which oxygen is continued. Gen. No acute distress alert and oriented 4 Lungs clear to ascultation bilaterally, no wheezes rales or rhonchi appreciated Heart normal sinus rhythm no murmurs rubs or clicks noted Abdomen soft mild right lower quadrant tenderness bowel sounds are normoactive Lower extremities no clubbing cyanosis, nor edema appreciated bilaterally The patient felt ready to be discharged and was medically cleared to be discharged to rehab on the morning of 09/21/2024 with an additional six day c ourse of p.o. ciprofloxacin and p.o. metronidazole with a recommendation to take a probiotic to avoid antibiotic induced colitis (C difficile enterocolitis) The patient was seen and evaluated on day of discharge. Time spent on discharge 35 minutes *Problems/Diagnosis: (1) Colitis Status: Acute Total Time Spent on D/C: > 30 Minutes Date of Service: Sep 21, 2024 Billing Provider: MARILEE WONG DO Common Visit Codes: [id number]-WAF/[id number] DISCH DAY >30min MARILEE WONG DO Sep 21, 2024 19:44
== END 2024-09-21 16:14 | DRG 392 ==
LOC: ER 10:57 → ED HOLD 13:02 → ORTHO 4S 14:44
PROVIDERS: ADMIT Internal Medicine; ATTEND Internal Medicine
PROC: BW211ZZ Computerized Tomography (CT Scan) of Abdomen and Pelvis using Low Osmolar Contrast (ICD-10-PCS; 2024-09-17)
PROC: B4201ZZ Computerized Tomography (CT Scan) of Abdominal Aorta using Low Osmolar Contrast (ICD-10-PCS; principal; 2024-09-19)
PROC: B4241ZZ Computerized Tomography (CT Scan) of Superior Mesenteric Artery using Low Osmolar Contrast (ICD-10-PCS; 2024-09-19)
PROC: B4281ZZ Computerized Tomography (CT Scan) of Bilateral Renal Arteries using Low Osmolar Contrast (ICD-10-PCS; 2024-09-19)
PROC: B42C1ZZ Computerized Tomography (CT Scan) of Pelvic Arteries using Low Osmolar Contrast (ICD-10-PCS; 2024-09-19)
PROC: B4211ZZ Computerized Tomography (CT Scan) of Celiac Artery using Low Osmolar Contrast (ICD-10-PCS; 2024-09-19)
DX: A09 Infectious gastroenteritis and colitis, unspecified (principal); J96.11 Chronic respiratory failure with hypoxia; D64.9 Anemia, unspecified; J43.9 Emphysema, unspecified; K59.09 Other constipation; Z80.1 Family history of malignant neoplasm of trachea, bronchus and lung; Z79.899 Other long term (current) drug therapy; Z80.8 Family history of malignant neoplasm of other organs or systems; Z86.711 Personal history of pulmonary embolism; Z87.891 Personal history of nicotine dependence; Z99.81 Dependence on supplemental oxygen; Z88.8 Allergy status to other drugs, medicaments and biological substances
CPT/HCPCS: 36415; 74174; 74176; 80053; 81001; 83605; 83690; 84145; 84484; 85007; 85025; 85651; 86704; 86705; 87040; 87077; 87081; 87088; 87186; 87340; 93005; 94640; 94760; 96365; 97110; 97116; 97161; 97530; 99285; A6213; G0378; J0744; J1644; J2270; J2543; J3490; J7030; Q9967

== ENCOUNTER 2024-09-30 11:59 | Emergency (ER) | payer OTHER, MEDICARE, MEDICAID ==
[~2024-09-30] VITALS: Ht 177.8 cm; Wt 72.7 kg
--- NOTE | 2024-09-30 12:36 | Physician Documentation ---
History of Present Illness ~ Chief Complaint: Urinary Retention Stated Complaint: URINARY RETENTION Time Seen by MD: 12:03 HPI 73-year-old male presents to the ED with a complaint of painful urination and main unable to empty his bladder for several days Denies any fevers denies any burning or symptoms in his urethra.. Denies any history of STDs.. States he has been seen for [facility]rology at the [facility] for has not for quite some time Day of Onset: Sep 30, 2024 Medication Reconciliation Allergies: Coded Allergies: aspirin (Unverified Allergy, Unknown, 09/13/24) naproxen (Verified Allergy, Unknown, hives, swelling, 09/13/24) Scheduled Atorvastatin Calcium* (Lipitor*), 1 TAB PO HS, (Reported) Docusate Sodium (Colace), 1 CAP PO Q12H, (Reported) Guaifenesin (Mucinex), 1 TAB PO Q12H, (Reported) Lactobacillus Rhamnosus (Culturelle), 1 CAP PO DAILY, (Reported) Metoprolol Tartrate (Lopressor tablet), 25 MG PO BID, (Reported) Mometasone/Formoterol (Dulera 200 Mcg/5 Mcg Inhaler), 2 PUFFS INH Q12H, (Reported) Omeprazole Magnesium (Prilosec Otc), 20 MG PO DAILY, (Reported) Sennosides/Docusate Sodium (Senna-Docusate Sodium Tablet), 2 TAB PO Q12H, (Reported) Tiotropium [place] (Spiriva Respimat), 2 PUFFS PO DAILY, (Reported) Scheduled PRN Acetaminophen (Tylenol), 650 MG PO Q4H PRN for pain, (Reported) Albuterol Sulfate (Proair Hfa), 1 PUFFS IH Q4H PRN for SOB or wheezing, (Reported) Hydrocodone Bit/Acetaminophen 5/325 MG ([place] 5/325 MG), 1 TAB PO Q4H PRN for pain, (Reported) Hydrocodone Bit/Acetaminophen (Hydrocodone-Apap 10-325 Tablet), 1 TABLET PO Q4H PRN for pain, (Reported) Ipratropium/Albuterol Sulfate (Duoneb 2.5-0.5 Mg/3 Ml Soln), 3 ML IH Q4H PRN for SOB or wheezing, (Reported) Past Medical History Past Medical History: COPD, Emphysema, Constipation Past Surgical History: no surgical history Patient History: FH: lung cancer GRANDFATHER OR GRANDMOTHER MOTHER FH: throat cancer GRANDFATHER OR GRANDMOTHER Alcohol Use: Other Drug Use: none Lives with: Other Lives In: SNF Review of Systems All Other Systems at this time: Reviewed and Negative Physical Exam Vital Signs: Temperature: 97.5, Source: Temporal, Heart Rate: 78, Respiratory Rate: 18, BP: 122/84, Pulse Oximetry: 99, Weight: 72.730 Oxygen Flow Rate: 0 Physical Exam General: Alert, no apparent distress. Respiratory: Lungs clear, no respiratory distress. Gastrointestinal: Soft, nontender, nondistended. Bowels sounds present. Genitourinary: Tender to palpation in the bladder region Neurologic: Oriented x4. Psychiatric: Normal mood and affect. Skin: Normal color, warm and dry. No edema, no ecchymosis. Progress Results/Orders Results/Orders Completed Orders - [facility] * Bladder Scan / Post Residual (09/30/24 12:13) * Straight Cath* (09/30/24 12:13) * (A) Gupta- Protocol * Q12H@07,19 (09/30/24 12:14) Lidocaine 2% Jelly 11ml Syr (Glydo-Lidoc (09/30/24 12:15) Vital Signs 09/30/24 09/30/24 09/30/24 09/30/24 12:01 12:49 12:52 14:29 Temp 97.5 99.1 Pulse 78 62 69 Resp 18 16 16 16 B/P (MAP) 122/84 110/66 (81) 111/63 (79) Pulse Ox 99 100 98 O2 Flow Rate 0 2.0 2.0 09/30/24 15:07 Temp 98.0 Pulse 75 Resp 16 B/P (MAP) 111/63 Pulse Ox 97 Medical Decision Making Findings I spoke with Dr. Canales about this patient. I advised them essentially that the patient was sedated for urinary retention. I also explained that he had [facility] sudden [facility] therefore I placed a Gupta catheter to relieve patient's symptoms and Dr. Canales graciously agreed to see the patient in the outpatient setting. Urinary Diff Dx:Considerations: Include: AAA, Aortic dissection, Appendicitis, Appendicitis train, Bowel obstruction, Bladder outlet obstruc., Cholelithiasis, Choleangitis, Cholecystitis, DJD, Epididymitis, Hepatitis, HNP, Impaction, Musculoskeletal pain, Pancreatitis, Postoperative Comp., Prostatitis, Pyelonephritis, Renal failure, Renal infarction, Strain, Urolithiasis, Urinary Obstruction, Urethritis, Urinary retention, UTI, Other Departure Disposition: HOME / SELF CARE / HOMELESS Impression: Primary Impression: UTI (urinary tract infection) Condition: Stable Discharge Instructions: Acute Urinary Retention, Male Additional Instructions: I spoke to DR canales the urologist. You Can call the number to his office to make an appointment Referrals: NO PRIMARY CARE PROVIDER (PCP) JAMMIE CANALES MD Signature Scribe Signature: y Attestation: Scribed for Luis Gonzalez [employer] Commissioner by Luis Otero NP . 09/30/24 12:35 LUIS GONZALEZ NP Sep 30, 2024 12:36
[2024-09-30] MEDS: LidoCAINE 2% Topical Jelly 11mL syringe (UROJET) TOP ONE (12:45)
[2024-09-30 15:07] VITALS: BP 111/63; PULSE 75; RESP 16; TEMP 98; O2SAT 97
== END 2024-09-30 15:09 | disposition home or self-care (01) ==
LOC: ER 11:59
DX: N39.0 Urinary tract infection, site not specified (principal); J43.9 Emphysema, unspecified; Z88.6 Allergy status to analgesic agent
CPT/HCPCS: 51702; 51798; 99284; A4314

== ENCOUNTER 2024-11-14 16:40 | Inpatient (IN) | payer OTHER, MEDICARE, MEDICAID ==
[~2024-11-14] VITALS: Ht 182.9 cm; Wt 73.9 kg
--- NOTE | 2024-11-14 16:47 | ELECTROCARDIOGRAPH REPORT ---
[facility] Test Date: 2024-11-14 Test Time: 16:45:05 Pat Name: KAYLIE WISE Department: EMERGENCY ROOM Room: Gender: M Outdoor Studies Director: NAV : 1950 Requested By: JS [facility] Order Number: [id number] Reading MD: Measurements Intervals [place] Rate: 126 P: 75 GA: 144 QRS: 89 QRSD: 120 T: 33 QT: 337 QTc: 488 Interpretive Statements Sinus tachycardia Right bundle branch block Please click the below link to view image of tracing.
--- NOTE | 2024-11-14 17:03 | RADIOLOGY REPORT ---
CHEST RADIOGRAPH Indication: CP Technique: DI CHEST,SINGLE VIEW Comparison: None FINDINGS: The cardiac silhouette is unremarkable. The lungs demonstrate bibasilar airspace opacities. The pulmonary vasculature is prominent. There is no pleural effusion. There is no pneumothorax. Aortic atherosclerotic disease. IMPRESSION: As above
[2024-11-14 17:10] LABS: MEAN PLATELET VOLUME 7.3 FL (7.4-10.4); RED CELL DISTRIBUTION WIDTH 16.0 % (11.5-14.5)
[2024-11-14 17:29] LABS: CREATININE 0.99 MG/DL (0.60-1.10); PRO BRAIN NATRIURETIC PEPTIDE 448 PG/ML (0-450); TOTAL CARBON DIOXIDE 24.6 MMOL/L (24-32); eCRCL 67 ML/MIN; eGFR 74 ML/MIN
--- NOTE | 2024-11-14 17:34 | Physician Documentation ---
History of Present Illness ~ Chief Complaint: Shortness of Breath Stated Complaint: DIFFICULTY BREATHING Time Seen by MD: 17:29 Primary Medical Doctor: None Mode of Arrival: EMS HPI 73-year-old male presents to the ED after recently being released from [facility]. He says that he lives in a trailer and he noticed when he got home today he had difficulty getting the up into his trailer. Denies having a cough reports increased shortness of breath. Patient was tachycardic for EMS 126 and respiration rate of 20. Her patient received a nebulizer EN route without much improvement. He has a history of bronchitis COPD pneumonia Medication Reconciliation Allergies: Coded Allergies: aspirin (Unverified Allergy, Unknown, 11/14/24) naproxen (Verified Allergy, Unknown, hives, swelling, 11/14/24) Scheduled Atorvastatin Calcium* (Lipitor*), 1 TAB PO HS, (Reported) Docusate Sodium (Colace), 1 CAP PO Q12H, (Reported) Guaifenesin (Mucinex), 1 TAB PO Q12H, (Reported) Lactobacillus Rhamnosus (Culturelle), 1 CAP PO DAILY, (Reported) Metoprolol Tartrate (Lopressor tablet), 25 MG PO BID, (Reported) Mometasone/Formoterol (Dulera 200 Mcg/5 Mcg Inhaler), 2 PUFFS INH Q12H, (Reported) Omeprazole Magnesium (Prilosec Otc), 20 MG PO DAILY, (Reported) Sennosides/Docusate Sodium (Senna-Docusate Sodium Tablet), 2 TAB PO Q12H, (Reported) Tiotropium Sylvester (Spiriva Respimat), 2 PUFFS PO DAILY, (Reported) Scheduled PRN Acetaminophen (Tylenol), 650 MG PO Q4H PRN for pain, (Reported) Albuterol Sulfate (Proair Hfa), 1 PUFFS IH Q4H PRN for SOB or wheezing, (Reported) Hydrocodone Bit/Acetaminophen 5/325 MG ([place] 5/325 MG), 1 TAB PO Q4H PRN for pain, (Reported) Hydrocodone Bit/Acetaminophen (Hydrocodone-Apap 10-325 Tablet), 1 TABLET PO Q4H PRN for pain, (Reported) Ipratropium/Albuterol Sulfate (Duoneb 2.5-0.5 Mg/3 Ml Soln), 3 ML IH Q4H PRN for SOB or wheezing, (Reported) Past Medical History Past Medical History: COPD, Emphysema, Constipation Past Surgical History: no surgical history Patient History: FH: lung cancer GRANDFATHER OR GRANDMOTHER MOTHER FH: throat cancer GRANDFATHER OR GRANDMOTHER Alcohol Use: Other Drug Use: none Lives with: Other Lives In: SNF Physical Exam Vital Signs: Source: Oral, Heart Rate: 126, Respiratory Rate: 26, BP: 99/71, Pulse Oximetry: 93, Weight: 73.900 Oxygen Flow Rate: 3.0 Progress Results/Orders Results/Orders Orders - LUIS BIRCH BOOSTER PUMP OPERATOR Svn Treatment (11/14/24 ) Culture Blood (11/14/24 17:36) Urinalysis, Cult If Indicated (11/14/24 17:45) Page Hospitalist (11/14/24 ) Completed Orders - LUIS BIRCH BOOSTER PUMP OPERATOR Ipratropium/Albuterol Nebule (Ipratrop/A (11/14/24 17:35) Methylprednisolone Sod Succ (Solumedrol (11/14/24 17:35) Ceftriaxone 2gm/D5w 50ml Bag (Rocephin 2 (11/14/24 17:35) Lacticsepsis (11/14/24 17:36) Hydrocodone/Apap 10/325 ([place] 10/325mg (11/14/24 19:45) Medications Received in ER Medications (Trade) Dose Ordered Sig/Renetta Route PRN Reason Start Time Stop Time Status Last Admin Dose Admin (ipratrop/ albuterol 0.5-3(2.5) MG/3ml nebule) 3 ml ONCE ONCE NEB 11/14/24 17:35 11/14/24 17:37 DC 11/14/24 18:04 3 ML (SoluMEDROL 125mg inj) 125 mg ONCE ONCE IV 11/14/24 17:35 11/14/24 17:37 DC 11/14/24 17:50 125 MG Ceftriaxone Sodium/Dextrose 50 ml @ 100 mls/hr NOW ONCE IV 11/14/24 17:35 11/14/24 18:04 DC 11/14/24 18:31 100 MLS/HR ([place] 10/325mg tab) 1 tab ONCE ONCE PO 11/14/24 19:45 11/14/24 19:46 DC 11/14/24 20:11 1 TAB Vital Signs 11/14/24 11/14/24 11/14/24 11/14/24 16:46 16:52 16:52 17:36 Temp 97.8 97.8 Pulse 125 126 117 Resp 20 26 18 B/P (MAP) 99/71 99/71 (80) 120/76 (91) Pulse Ox 92 93 96 O2 Flow Rate 3.0 3.0 3.0 11/14/24 11/14/24 11/14/24 17:58 18:06 20:11 Pulse 116 120 Resp 18 18 16 Pulse Ox 96 96 O2 Delivery Nasal Cannula* Nasal Cannula* O2 Flow Rate 3 3 FiO2 32 32 Laboratory Tests Test 11/14/24 16:59 11/14/24 18:46 11/14/24 19:58 White Blood Count 16.3 H Red Blood Count 4.62 L Hemoglobin 12.6 L Hematocrit 39.0 L Mean Corpuscular Volume 84.5 Mean Corpuscular Hemoglobin 27.3 Mean Corpuscular Hemoglobin Concent 32.3 L Red Cell Distribution Width 16.0 H Platelet Count 327 Mean Platelet Volume 7.3 L Neutrophils (%) (Auto) 89.7 H Lymphocytes (%) (Auto) 5.2 L Monocytes (%) (Auto) 4.1 Eosinophils (%) (Auto) 0.7 Basophils (%) (Auto) 0.3 Neutrophils # (Auto) 14.6 H Lymphocytes # (Auto) 0.8 L Monocytes # (Auto) 0.7 Eosinophils # (Auto) 0.1 Basophils # (Auto) 0.1 CBC Comment Sodium Level 136 Potassium Level 4.5 Chloride Level 104 Carbon Dioxide Level 24.6 Anion Gap 7 L Blood Urea Nitrogen 18 Creatinine 0.99 Estimated GFR/1.73 m2 74 BUN/Creatinine Ratio 18.2 Glucose Level 113 H Hemoglobin A1c 5.4 Lactic Acid Level 1.1 Calcium Level 9.3 Troponin I High Sensitivity 7 9 9 Pro-B-Type Natriuretic Peptide 448 Albumin 3.2 L Chemistry Comments Troponin I High Sens Percent Delta 28 0 Troponin I Hi Sens Absolute Change 2 0 Microbiology Date/Time Source Procedure Growth Status 11/14/24 18:27 Blood Arm Right Blood Culture - Preliminary NEGATIVE (LESS THAN 24 HOURS) Resulted Medical Decision Making Findings In the interpretation a made note of multiple bilateral basilar opacities indicating possible infiltrate I suspect either bacterial or viral pneumonia. Based on patient's current presentation he meets criteria for hospital admission for IV antibiotics, steroids and breathing treatments Differential Dx:Considerations: Include: anxiety, asthma, bronchitis, cardiogenic shock, CHF, COPD, dysrhythmia, hypertension, accelerated, hypertension, essential, hypertension, malignant, hyperventilation, hyponatre arina, myocardial infarction, panic attack, pneumonia, pneumonitis, pneumothorax, PSVT, pulmonary embolism, respiratory distress, respiratory failure, sinusitis, upper resp. infection, other Departure Disposition: 09 ADMITTED INPATIENT Impression: Primary Impression: Difficulty breathing Additional Impressions: Chronic obstructive pulmonary disease Pneumonia Condition: Stable Referrals: NO PRIMARY CARE PROVIDER (PCP) Signature Scribe Signature: g Attestation: Scribed for Luis Birch Gas Welder Apprentice by Luis Otero NP . 11/14/24 18:02 LUIS BIRCH NP Nov 14, 2024 17:34
[2024-11-14] MEDS: ipratropium/albuterol 3ml nebule NEB ONE (17:41)
[2024-11-14 17:58] VITALS: PULSE 116; RESP 18; O2SAT 96
[2024-11-14 18:06] VITALS: PULSE 120; RESP 18; O2SAT 96
[2024-11-14] MEDS: CefTRIAXone 2gm/D5W 50ml BAG 50 ML IV ONE (18:08)
[2024-11-14] MEDS: HYDROcodone/acetaminophen 10/325mg tab PO ONE (20:11)
[2024-11-14] MEDS ORDERED: potassium Cl 40MEQ/1/2NS 520ml 520 ML IV PRN (20:40)
[2024-11-14] MEDS ORDERED: magnesium sulf-water 4G/100mL 100 ML IV PRN (20:40)
[2024-11-14] MEDS ORDERED: ondansetron/PF 4mg/2ml inj IV PRN (20:40)
[2024-11-14] MEDS ORDERED: magnesium Cl slow-release 64mg tablet PO PRN (20:40)
[2024-11-14] MEDS ORDERED: potassium Cl 20 mEq SR tablet PO PRN ×2 (20:40)
[2024-11-14] MEDS ORDERED: mag hydrox/Alum hydrox/simeth 30ml oral suspension PO PRN (20:40)
[2024-11-14] MEDS ORDERED: magnesium sulf-water 2g/50mL 50 ML IV PRN (20:40)
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
[2024-11-14 22:25] VITALS: BP 104/58; PULSE 96; RESP 24; TEMP 97.8; O2SAT 95
[2024-11-14 23:23] LABS: LEUKOCYTE ESTERASE ,URINE MODERATE (Neg); NITRITES, URINE POSITIVE (Neg); OCCULT BLOOD,URINE SMALL (Neg)
[2024-11-14 23:26] LABS: UA COLLECTION TYPE CLN CATCH MIDSTREAM
[2024-11-14 23:28] LABS: SQUAMOUS EPITHELIAL CELL,UR FEW /LPF (FEW)
[2024-11-14 23:33] VITALS: PULSE 100; RESP 19; O2SAT 95
[2024-11-14] MEDS: ipratropium/albuterol 3ml nebule NEB SCH (23:33)
[2024-11-14 23:43] VITALS: PULSE 95; RESP 18
[2024-11-15] VITALS (15 sets, daily range): BP systolic 99–124; BP diastolic 52–64; PULSE 59–116; RESP 16–22; TEMP 97.7–98.9; O2SAT 93–100
[2024-11-15] MEDS: HYDROcodone/acetaminophen 5mg/325mg tablet PO PRN (00:28)
--- NOTE | 2024-11-15 00:48 | RADIOLOGY REPORT ---
CTA Chest with intravenous contrast INDICATION: sob COMPARISON: CT CTA CHEST PE W/ IV CONTRAST on DOS: 08/11/24, CT CTA CHEST PE W/ IV CONTRAST on DOS: 03/09/24, CT CTA CHEST PE on DOS: 01/20/24, CT CT CHEST on DOS: 12/17/23 TECHNIQUE: Multidetector spiral CTA of the chest was performed of the chest with intravenous contrast. PULMONARY ANGIOGRAPHY PROTOCOL was utilized using a bolus- tracking technique centered on the main pulmonary artery. Axial, coronal and sagittal multiplanar and MIP reformats were performed. Radiation Dose : 1. Chest: CTDI volume is 20.83 mGy. Dose-length product is 860.57 mGy*cm The dose indicators for CT are the volume Computed Tomography (CT) Dose Index (CTDIvol) and the Dose Length Product (DLP), and are measured in units of mGy and mGy-cm, respectively. These indicators are not patient dose, but values generated from the CT scanner acquisition factors. The report includes radiation exposure data for exposures received during this examination. Findings: Pulmonary artery: No pulmonary embolism. Lower neck: Normal thyroid. Lungs: Moderate patchy posterior bibasilar pulmonary infiltrate, [id number]-right, and mild multifocal infiltrate within the right middle lobe. No evidence of pleural effusion or pneumothorax. Moderate left hemidiaphragmatic elevation. Interposition of bowel segments between the anterior hepatic margin and right hemidiaphragm. Heart/Vascular Structures: Normal heart size. No pericardial effusion. Atherosclerotic vascular calcifications. Lymph Nodes: No adenopathy Musculoskeletal: No acute osseous abnormality. Soft tissues: Normal. Upper abdomen: Limited portions of the upper abdomen are unremarkable. Benign- appearing right hepatic lobe cyst measures 1.0 cm. IMPRESSION: 1. No pulmonary embolism. 2. Moderate patchy posterior bibasilar pulmonary infiltrate, [id number]-right, and mild multifocal infiltrate within the right middle lobe.
[2024-11-15 05:53] LABS: MEAN PLATELET VOLUME 7.6 FL (7.4-10.4); RED CELL DISTRIBUTION WIDTH 16.0 % (11.5-14.5)
[2024-11-15 06:12] LABS: CHOL/HDL RATIO 1.7 (0.00-4.99); CREATININE 0.97 MG/DL (0.60-1.10); LDL CHOLESTEROL 34 MG/DL (50-100); TOTAL CARBON DIOXIDE 25.5 MMOL/L (24-32); eCRCL 69 ML/MIN; eGFR 75 ML/MIN
[2024-11-15] MEDS ORDERED: docusate sod 100mg capsule PO SCH (08:00)
[2024-11-15] MEDS: K and/or MAG REPLACEMENT MC SCH (08:00)
[2024-11-15] MEDS ORDERED: albuterol 2.5 MG/3 ML nebule NEB PRN (09:45)
[2024-11-15] MEDS: CefTRIAXone/D5W-Rocephin 1gm 50 ML IV SCH (11:15)
[2024-11-15] MEDS: azithromycin/NS 500mg/250ml 250 ML IV SCH (11:15)
[2024-11-15] MEDS: metoprolol tartrate 12.5mg (1/2 tablet) PO SCH (11:19)
[2024-11-15] MEDS: docusate sod 100mg capsule PO SCH (11:20)
[2024-11-15] MEDS: pantoprazole 40mg Tablet.DR PO SCH (11:20)
[2024-11-15] MEDS: guaiFENesin ER 600mg tablet PO SCH (11:21)
[2024-11-15] MEDS: heparin, porcine 5000 units/ml vial SQ SCH (11:21)
[2024-11-15] MEDS ORDERED: mineral oil 133ml enema RC PRN ×2 (12:10→15:15)
[2024-11-15] MEDS: vancomycin/NS 1 GM ADD-VANTAGE 250 ML IV SCH (15:46)
[2024-11-15] MEDS: magnesium hydroxide 30ml (MOM) UD suspension PO PRN (19:04)
--- NOTE | 2024-11-15 20:47 | PROGRESS NOTE- Residence ---
Progress Note - Resident Providers to CC Resident Creating Document: CHRISTOPHER SIMS RES ~ Antibiotic Timeout Antibiotic Ordered?: Yes Subjective Patient was, seen and examined on bedside, he said since admission he is feeling better, her shortness of breath is improving but reports still some shortness of breath. Objective Vital Signs Date Time Temp Pulse Resp B/P (MAP) Pulse Ox O2 Delivery O2 Flow Rate FiO2 11/15/24 19:24 18 94 Nasal Cannula 2.5 28 11/15/24 19:05 93 11/15/24 18:00 98.1 124/61 (82) Result Diagram: 11/15/24 0514 11/15/24 0514 General: Awake and Alert, mild acute distress. On 3 L oxygen nasal cannula. HEENT: Conjunctiva pink, Sclera clear, Mucus Membranes dry Neck: Supple without masses and tenderness. Resp: Decreased breath sounds bilaterally. Wheezing present Heart: Tachycardic, Regular rhythm, normal S1 and S2, no rub, murmur or gallop. Abdomen: Soft and non tender no organomegaly. Normal bowel sounds x4 quadrant normoactive. No guarding or rigidity. Extremities: Normal ROM, no swelling, nontender. No cyanosis,clubbing or edema. MSK: No joint swelling or back tenderness. 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 Skin: Bruises on bilateral upper extremity, otherwise: Warm and Dry. Coagulation Studies Laboratory Tests Test 11/14/24 19:58 D-Dimer 1.65 MG/L FEU (0-0.50) H D-Dimer Comment Plan Plan This is a 73-year-old male admitted for possible COPD exacerbation, pneumonia and UTI Acute on chronic hypoxemic respiratory failure Likely secondary to COPD exacerbation Patient uses home oxygen 2 L, currently on 3 L of oxygen, today maintaining oxygen sat at 2.5 L EKG: Sinus tach, no acute ST/T-wave changes noted Chest x-ray- The lungs demonstrate bibasilar airspace opacities. The pulmonary vasculature is prominent. There is no pleural effusion. There is no pneumothorax. Maintain oxygen saturation between 89-92%; on 3 L supplemental O2 via nasal canula, use BiPAP if needed . Solu-Medrol 125 mg IV bolus given, continue Solu-Medrol 60 mg IV twice daily DuoNebs 3 mL once given in the ED, continue every 4 hours as scheduled and every 2 hours as needed Ceftriaxone 1 g IV daily day 1 Azithromycin 500 mg IV daily day 1 Vancomycin day 1 Preliminary sputum culture MANY GRAM NEGATIVE RODS,MANY GRAM POSITIVE COCCI IN CLUSTER,FEW YEAST FEW OTHER MIXED BACTERIA ALSO SEEN ON SLIDE MODERATE EPITHELIAL CELLS Incentive spirometry Follow up with COVID and influenza Possible underlying community-acquired pneumonia WBC trending upward to 20.3 No fevers recorded Lactic acid normal. Follow-up with protocol Chest x-ray- The lungs demonstrate bibasilar airspace opacities. Patient has cough with productive sputum. Patient on azithromycin ceftriaxone day one Possible PE To be ruled out Wells score 3 Patient tachycardic, heart rate 110 D-dimer elevated 1.65 CTA ruled out PE CTA: 1. No pulmonary embolism., Moderate patchy posterior bibasilar pulmonary infiltrate, [id number]-xbed-right, and mild multifocal infiltrate within the right middle lobe. UTI UA suggestive of UTI Patient is on ceftriaxone 1 g IV day one Preliminary urine cultures positive for Gram-positive cocci Normocytic anemia Hb- 12.6 MCV-84.5 TTE from 12/18/23 shows normal systolic function with LVEF of 65-70% and RVSP 34 mmHg. We will repeat echo follow up with that Code Status: Full code DVT prophylaxis: Heparin Analgesia/sedation: Morphine Line/tube: PIV GI prophylaxis: None Nutrition: Regular Disposition: Continue medical management, possible discharge on Sunday. Christopher Sims PGY1 IM Date of Service: Nov 15, 2024 Billing Provider: NIECY DOWLING MD, SANJAY, RES Nov 15, 2024 20:47
[2024-11-15] MEDS: PERFLUTREN PROTEIN-A MICROSPHR (Optison) 0.22 MG/ML 3ML VIAL IV ONE (20:50)
[2024-11-16] VITALS (18 sets, daily range): BP systolic 105–122; BP diastolic 57–85; PULSE 57–102; RESP 16–22; TEMP 98–98.6; O2SAT 93–98
[2024-11-16 05:55] LABS: CREATININE 0.71 MG/DL (0.60-1.10); TOTAL CARBON DIOXIDE 26.8 MMOL/L (24-32); eCRCL 94 ML/MIN; eGFR > 90 ML/MIN
[2024-11-16 06:03] LABS: MEAN PLATELET VOLUME 7.9 FL (7.4-10.4); RED CELL DISTRIBUTION WIDTH 15.8 % (11.5-14.5)
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
[2024-11-17] VITALS (20 sets, daily range): BP systolic 106–125; BP diastolic 55–86; PULSE 63–96; RESP 18–22; TEMP 97.7–98.4; O2SAT 94–98
[2024-11-17] MEDS: VANCOMYCIN LEVEL IV ONE (03:09)
[2024-11-17 03:18] LABS: MEAN PLATELET VOLUME 7.6 FL (7.4-10.4); RED CELL DISTRIBUTION WIDTH 16.2 % (11.5-14.5)
[2024-11-17 03:33] LABS: CREATININE 0.94 MG/DL (0.60-1.10); TOTAL CARBON DIOXIDE 26.3 MMOL/L (24-32); eCRCL 71 ML/MIN; eGFR 78 ML/MIN
--- NOTE | 2024-11-17 12:17 | CONSULTATION REPORT - RESIDENT ---
Consult Providers to CC Resident Creating Document: ANA WHITE, RES CC: YISEL ABRAMS DO History of Present Illness Reason for Admit\Complaint: Consult for positive sputum and urine cultures History of Present Illness A 73-year-old male with history of COPD, chronic hypoxemic respiratory failure on 2 L home oxygen, history of BA presented to the ED in view of gradual worsening of shortness of breaths since the morning on the day of admission. On further investigations, patient was found to have left lower lobe opacities concerning for pneumonia. Additionally patient also had burning sensation on micturition with pain in the lower abdomen. Patient denied fever, chills or rigors. Eventually patient's urine culture was positive for MRSA and sputum cultures were positive for Pseudomonas that is pansensitive. ID is consulted in view of the positive cultures. Allergies: Coded Allergies: aspirin (Unverified Allergy, Unknown, 11/14/24) naproxen (Verified Allergy, Unknown, hives, swelling, 11/14/24) Home Medications Home Medications Active Reported Senna-Docusate Sodium Tablet (Sennosides/Docusate Sodium) 8.6 Mg-50 Mg Tablet 2 Tab PO Q12H 5 Days Culturelle (Lactobacillus Rhamnosus) 10 Billion Cell Capsule 1 Cap PO DAILY 30 Days [place] 5/325 MG (Acetaminophen/Hydrocodone Bitart) 5 Mg/325 Mg Tablet 1 Tab PO Q4H PRN Hydrocodone-Apap 10-325 Tablet (Acetaminophen/Hydrocodone Bitart) 10mg/325mg Tablet 1 Tablet PO Q4H PRN Tylenol (Acetaminophen) 325 Mg Tablet 650 Mg PO Q4H PRN Duoneb 2.5-0.5 Mg/3 Ml Soln (Ipratropium/Albuterol Sulfate) 0.5 Mg-3 Mg (2.5 Mg Base)/3 Ml Ampul.neb 3 Ml IH Q4H PRN Lipitor* (Atorvastatin Calcium) 40 Mg Tablet 1 Tab PO HS Colace (Docusate Sodium) 100 Mg Capsule 1 Cap PO Q12H Mucinex (Guaifenesin) 600 Mg Tablet.sa 1 Tab PO Q12H Dulera 200 Mcg/5 Mcg Inhaler (Mometasone/Formoterol) 200 Mcg-5 Mcg/Actuation Hfa.aer.ad 2 Puffs INH Q12H Prilosec Otc (Omeprazole Magnesium) 20 Mg Tablet.dr 20 Mg PO DAILY Lopressor tablet (Metoprolol Tartrate) 25 Mg Tablet 25 Mg PO BID 12.5 MG = 1/2 TABLET HOLD FOR SBP LESS THAN 100 OR PULSE BELOW 60 Spiriva Respimat (Tiotropium [place]) 4 Gm Mist.inhal 2 Puffs PO DAILY Proair Hfa (Albuterol Sulfate) 1 Puff Inh 1 Puffs IH Q4H PRN Past Medical History Past Medical History COPD Chronic hypoxemic respiratory failure on 2 L home oxygen PE Past Surgical History Surgical History Comment Surgery for rectal abscess two years ago Exploratory laparotomy for a stab urine Abdominal hernia surgery Nicotine compression surgery Family History Family History: FH: lung cancer GRANDFATHER OR GRANDMOTHER MOTHER FH: throat cancer GRANDFATHER OR GRANDMOTHER Past Social History Social History Comment He quit smoking two years ago used to smoke 1-1-1/2 pack of cigarettes (40 pack- years). Drinks alcohol rarely No illicit drug use ROS ROS Constitutional: No fever, chills, dizziness, weight gain or loss Eyes: No pain, erythema, discharge, blurring of vision ENT: No sore throat, epistaxis, tinnitus Cardiovascular: reports Shortness of breath. No Chest pressure, chest discomfort, palpitations, syncope, lower extremity edema, paroxysmal nocturnal dyspnea Respiratory: Shortness of breath and cough present, No hemoptysis Gastrointestinal: Normal appetite. No nausea, vomiting, diarrhea, constipation, hematemesis, abdominal pain, bloating, melena or fresh blood Genitourinary: Burning micturition Musculoskeletal: No edema Integumentary: No change in skin, hair, nails. No swelling, bruising, abrasions Neurologic: No headache, neck pain, numbness or tingling of the extremities, weakness Psychiatric: No delusions, depression, loss of interest in normal activity or change in sleep pattern, hallucinations, suicidal ideations Endocrine: No fatigue, weakness, polydipsia, polyuria, change in appetite, heat or cold intolerance, sweating, dry skin Exam Vitals: Vital Signs Date Time Temp Pulse Resp B/P (MAP) Pulse Ox O2 Delivery O2 Flow Rate FiO2 11/17/24 11:31 63 20 Nasal Cannula 2.0 11/17/24 11:22 95 28 11/17/24 10:05 97.7 106/60 (75) General: General: Elderly malnourished hay, Alert, awake, oriented, not in acute distress HEENT: PERRLA, no icterus, pallor, lymphadenopathy, carotid bruit Respiratory system: Bilateral vesicular breath sounds heard, no adventitious breath sounds CVS: S1-S2 heard, no murmurs/rubs/gallop GI: Soft, nontender, no organomegaly, no guarding/rigidity, bowel sounds present Neuro: No focal neurological deficits present Extremities: No edema cyanosis clubbing/deformities Skin: Warm and dry, multiple small abrasions at various healing stages present in the right elbow, on lower extremity Diagnostic Data Last Recorded Lab Results: 11/17/24 03011/17/24 0305 Diagnostic Data: Laboratory Tests Test 11/14/24 19:58 D-Dimer 1.65 MG/L FEU (0-0.50) H D-Dimer Comment Additional Plan Assessment: A 73-year-old male with a past medical history of COPD, PE, chronic hypoxemic respiratory failure on 2 L home oxygen presented to the ED in view of gradual worsening of shortness of breaths, burning micturition and lower abdominal pain. Eventually laboratory was positive for leukocytosis quit neutrophilic shift, imaging positive for left lower lobe opacities. Consequently, patient's sputum culture was positive for Pseudomonas aeruginosa, urine culture positive for MRSA. Reportedly patient had prior urine cultures positive for Enterococcus, lactobacillus at various other times. Sputum was also positive for Pseudomonas in last July. MRSA in urine is unusual, could possibly be secondary to catheters or descending infection from the bloodstream. Since blood cultures are currently negative, this could have been secondary to the Gupta's that the patient had for about five days at the living facility 1 month prior to the admission. Patient was treated for perirectal abscess in 2021 that was positive for Streptococcus group B, bacteroides ovatus. Plan: Symptomatic uncomplicated recurrent UTI Imaging might not be recommended in this condition as the patient although has a recurrent UTI, has been from different organisms. The current culture is very unusual and most likely was secondary to external catheters. Patient also denies any clinical toxic symptoms or signs of structural or urodynamic abnormalities Urine culture positive for MRSA Patient had received vancomycin 4 doses Switch to linezolid 600 mg p.o. b.i.d. (10 doses) (end date: 11/22, after morning dose)-stop dates have been placed in the orders Acute on chronic hypoxemic respiratory failure 2/2 COPD exacerbation & community-acquired pneumonia Sputum culture positive for Pseudomonas aeruginosa, pansensitive Patient completed three day course of azithromycin. Switch to Levaquin 750 mg once daily for another 7 days(end date: 11/24/2024, after 11:00 a.m. dose)- stop dates have been placed in the orders Continue other management per hospitalist team Patient can be discharged on these p.o. medications per the plan of primary care team Disposition: Continue care in surgical floor, switch antibiotics per the above plan. Can be discharged based on primary care team recommendation Ana White MD Internal Medicine, PGY 2 Date of Service: Nov 17, 2024 Billing Provider: NIECY DOWLING MD Addendum Patient seen and examined with Dr. White. Agree with the above assessment and plan. In brief this is an ID consultation for CAP and MRSA UTI. Patient presented with acute on chronic dyspnea and dysuria. He was placed on Vanc, Rocephin, Azithro and has been improving enough to be ready for discharge soon. Would recommend that antibiotics be changed to Levaquin for Pseudomonas to complete a 7 day course and Zyvox for MRSA for 4 more days. ANA WHITE, RES Nov 17, 2024 12:17 YISEL ABRAMS DO Nov 17, 2024 22:40
[2024-11-17] MEDS: levoFLOXACIN 750MG TABLET PO SCH (12:33)
[2024-11-17] MEDS ORDERED: VANCOmycin 1250MG/NS 250ml Bag 250 ML IV SCH (15:00)
--- NOTE | 2024-11-17 18:47 | PROGRESS NOTE- Residence ---
Progress Note - Resident Providers to CC Resident Creating Document: KRISSY MUELLER RES ~ Antibiotic Timeout Antibiotic Ordered?: Yes Subjective Patient was seen and examined at the bedside. Patient states that his breathing is better and sputum production has decreased. Patient is still has burning when he urinates. However urine does not appear to be cloudy. Antibiotics adjusted today per ID recommendations per culture and sensitivity results Objective Vital Signs Date Time Temp Pulse Resp B/P (MAP) Pulse Ox O2 Delivery O2 Flow Rate FiO2 11/17/24 16:39 18 11/17/24 15:43 76 Nasal Cannula 2.0 11/17/24 15:36 96 28 11/17/24 10:05 97.7 106/60 (75) Result Diagram: 11/17/24 0305 11/17/24 0305 General: Elderly malnourished, Alert, awake, oriented, not in acute distress HEENT: PERRLA, no icterus, pallor, lymphadenopathy, carotid bruit Respiratory system: Bilateral vesicular breath sounds heard, no adventitious breath sounds CVS: S1-S2 heard, no murmurs/rubs/gallop GI: Soft, nontender, no organomegaly, no guarding/rigidity, bowel sounds present Neuro: No focal neurological deficits present Extremities: No edema cyanosis clubbing/deformities Skin: Warm and dry, multiple small abrasions at various healing stages present in the right elbow, on lower extremity Coagulation Studies Laboratory Tests Test 11/14/24 19:58 D-Dimer 1.65 MG/L FEU (0-0.50) H D-Dimer Comment Assessment Assessment A 73-year-old male with a past medical history of COPD, PE, chronic hypoxemic respiratory failure on 2 L home oxygen presented to the ED in view of gradual worsening of shortness of breaths, burning micturition and lower abdominal pain. Eventually laboratory was positive for leukocytosis quit neutrophilic shift, imaging positive for left lower lobe opacities. Consequently, patient's sputum culture was positive for Pseudomonas aeruginosa, urine culture positive for MRSA. Reportedly patient had prior urine cultures positive for Enterococcus, lactobacillus at various other times. Sputum was also positive for Pseudomonas in last July. MRSA in urine is unusual, could possibly be secondary to catheters or descending infection from the bloodstream. Since blood cultures are currently negative, this could have been secondary to the Gupta's that the patient had for about five days at the living facility 1 month prior to the admission. Patient was treated for perirectal abscess in 2021 that was positive for Streptococcus group B, bacteroides ovatus. Plan Plan This is a 73-year-old male admitted for possible COPD exacerbation, pneumonia and UTI Sepsis present on admission Acute on chronic hypoxemic respiratory failure Likely secondary to community-acquired pneumonia Patient uses home oxygen 2 L, currently on 3 L of oxygen, today maintaining oxygen sat at 2.5 L EKG: Sinus tach, no acute ST/T-wave changes noted Chest x-ray- The lungs demonstrate bibasilar airspace opacities. The pulmonary vasculature is prominent. There is no pleural effusion. There is no pneumothorax. Maintain oxygen saturation between 89-92%; on 3 L supplemental O2 via nasal canula, use BiPAP if needed . Solu-Medrol 125 mg IV bolus given, continue Solu-Medrol 60 mg IV twice daily DuoNebs 3 mL once given in the ED, continue every 4 hours as scheduled and every 2 hours as needed Incentive spirometry Patient on mucinex for cough Follow up with COVID and influenza WBC down trended to a 8900 No fevers recorded Lactic acid normal. Chest x-ray- The lungs demonstrate bibasilar airspace opacities. Patient has cough with productive sputum. Patient is growing Pseudomonas and sputum culture sensitive to Levaquin. Started on Levaquin 750 mg once daily Possible PE To be ruled out Wells score 3 Patient tachycardic, heart rate 110 D-dimer elevated 1.65 CTA ruled out PE CTA: 1. No pulmonary embolism., Moderate patchy posterior bibasilar pulmonary infiltrate, [id number]-[id number], and mild multifocal infiltrate within the right middle lobe. MRSA UTI UA suggestive of MRSA UTI resistant to oxacillin Discontinue ceftriaxone Started on linezolid 600 mg twice daily per ID recommendation Normocytic anemia Hb- stable Hct: Stable MCV-84.5 Code Status: Full code DVT prophylaxis: Heparin Analgesia/sedation: Morphine Line/tube: PIV GI prophylaxis: None Nutrition: Regular Disposition: Continue care in surgical floor. Anticipated discharge tomorrow Krissy Balderrama. Internal medicine resident PGY two Date of Service: Nov 17, 2024 Billing Provider: NIECY DOWLING MD, DEEPIKA BANDI, RES Nov 17, 2024 18:47
[2024-11-18] VITALS (9 sets, daily range): BP systolic 116–122; BP diastolic 43; PULSE 68–86; RESP 16–20; TEMP 98.9; O2SAT 95–98
[2024-11-18 04:34] LABS: MEAN PLATELET VOLUME 7.5 FL (7.4-10.4); RED CELL DISTRIBUTION WIDTH 15.7 % (11.5-14.5)
[2024-11-18 05:01] LABS: CREATININE 0.90 MG/DL (0.60-1.10); TOTAL CARBON DIOXIDE 25.6 MMOL/L (24-32); eCRCL 74 ML/MIN; eGFR 82 ML/MIN
[2024-11-18] MEDS ORDERED: LEVO750T68 PO (07:57)
[2024-11-18] MEDS ORDERED: LINE600T14 PO (07:57)
[2024-11-18] MEDS ORDERED: PRED10TA23 PO (08:02)
--- NOTE | 2024-11-18 10:14 | PROGRESS NOTE- Residence ---
Progress Note - Resident Providers to CC Resident Creating Document: ANA BATES RES CC: YISEL ABRAMS DO ~ Antibiotic Timeout Antibiotic Ordered?: Yes Subjective Patient was seen and examined at the bedside. Patient continues to have cough with expectoration. Patient does not feel quite well since the time he had a recent breathing treatment as it stressed him out with a lot of expectoration during the therapy. Objective Vital Signs Date Time Temp Pulse Resp B/P (MAP) Pulse Ox O2 Delivery O2 Flow Rate FiO2 11/18/24 08:51 81 11/18/24 07:19 18 Nasal Cannula 2.0 11/18/24 07:10 97 28 11/18/24 05:00 98.9 122/43 (69) Result Diagram: 11/18/2441111/18/24411 General: Alert, awake, oriented, not in acute distress HEENT: PERRLA, no icterus, pallor, lymphadenopathy, carotid bruit Respiratory system: Bilateral vesicular breath sounds heard, coarse conducted breath sounds present, wheeze present in bilateral lung regions on inhalation CVS: S1-S2 heard, no murmurs/rubs/gallop GI: Soft, nontender, no organomegaly, no guarding/rigidity, bowel sounds present Neuro: No focal neurological deficits present Extremities: No edema cyanosis clubbing/deformities Skin: Warm and dry,multiple small abrasions at various healing stages present in the right elbow, on lower extremity Coagulation Studies Laboratory Tests Test 11/14/24 19:58 D-Dimer 1.65 MG/L FEU (0-0.50) H D-Dimer Comment Assessment Assessment A 73-year-old male with a past medical history of COPD, PE, chronic hypoxemic respiratory failure on 2 L home oxygen presented to the ED in view of gradual worsening of shortness of breaths, burning micturition and lower abdominal pain. Eventually laboratory was positive for leukocytosis quit neutrophilic shift, imaging positive for left lower lobe opacities. Consequently, patient's sputum culture was positive for Pseudomonas aeruginosa, urine culture positive for MRSA. ID is following the patient for infection management in view of positive cultures. Plan Plan Symptomatic uncomplicated recurrent UTI Cultures positive for MRSA Continue linezolid 600 mg p.o. b.i.d (end date: 11/22, after morning dose) (day 2) Acute on chronic hypoxemic respiratory failure 2/2 COPD exacerbation & community-acquired pneumonia Sputum culture positive for Pseudomonas aeruginosa, pansensitive Patient completed three day course of azithromycin, received four days of vancomycin Continue Levaquin 750 mg once daily for another 7 days(end date: 11/24/2024, after 11:00 a.m. dose) (day two) Encourage incentive spirometry Continue other management per hospitalist team Patient can be discharged on these p.o. medications per the plan of primary care team Disposition: Continue care in surgical floor, continue antibiotics as per above Ana Bates MD Internal Medicine, PGY 2 Date of Service: Nov 18, 2024 Billing Provider: YISEL ABRAMS DO Addendum Patient seen and examined with Dr. Bates. Agree with the above assessment and plan. Patient was seen just prior to discharge and I later spoke with the [place] pharmacist who was filling his meds ANA BATES, RES Nov 18, 2024 10:14 YISEL ABRAMS DO Nov 18, 2024 22:17
--- NOTE | 2024-11-18 18:23 | DISCHARGE SUMMARY-Residence ---
Discharge Summary Providers to CC Resident Creating Document: ERVINKRISSY JENNIFER, RES ~ Discharge Summary Admission Diagnosis: SOB Hospital Course DATE OF ADMISSION: 11/14/2024 DATE OF DISCHARGE: 11/18/2024 Discharge Diagnosis\Comment: Sepsis present on admission Acute on chronic hypoxemic respiratory failure Pseudomonas bacterial community-acquired pneumonia PE, ruled out MRSA UTI Normocytic anemia Operations\Procedures: None Consultants: None Complications: Dr. Segura Condition on DC: Stable New Medications: Prednisone (Prednisone) 10 Mg Tablet 0 PO DAILY, #42 TAB Take 4 tabs daily x4 days, then 3 daily x4 days 2 daily x4 days 1 daily x4 days 1/2 daily x4 days then STOP Levofloxacin (Levofloxacin) 750 Mg Tablet 750 MG PO DAILY@11 for 7 Days, #7 TAB Linezolid (Linezolid) 600 Mg Tablet 600 MG PO Q12H for 5 Days, #10 TAB Continued Medications: Acetaminophen (Tylenol) 325 Mg Tablet 650 MG PO Q4H PRN for pain, TAB Albuterol Sulfate (Proair Hfa) 1 Puff Inh 1 PUFFS IH Q4H PRN for SOB or wheezing, #1 EACH Atorvastatin Calcium* (Lipitor*) 40 Mg Tablet 1 TAB PO HS, TAB Docusate Sodium (Colace) 100 Mg Capsule 1 CAP PO Q12H, CAP 0 Refills Guaifenesin (Mucinex) 600 Mg Tablet.sa 1 TAB PO Q12H for cough, TAB 0 Refills Hydrocodone Bit/Acetaminophen 5/325 MG ([place] 5/325 MG) 5 Mg/325 Mg Tablet 1 TAB PO Q4H PRN for pain, TAB Hydrocodone Bit/Acetaminophen (Hydrocodone-Apap 10-325 Tablet) 10mg/325mg Tablet 1 TABLET PO Q4H PRN for pain, #30 TAB Ipratropium/Albuterol Sulfate (Duoneb 2.5-0.5 Mg/3 Ml Soln) 0.5 Mg-3 Mg (2.5 Mg Base)/3 Ml Ampul.neb 3 ML IH Q4H PRN for SOB or wheezing, ML Lactobacillus Rhamnosus (Culturelle) 10 Billion Cell Capsule 1 CAP PO DAILY for 30 Days, #30 CAP 0 Refills Metoprolol Tartrate (Lopressor tablet) 25 Mg Tablet 25 MG PO BID, TAB 12.5 MG = 1/2 TABLET HOLD FOR SBP LESS THAN 100 OR PULSE BELOW 60 Mometasone/Formoterol (Dulera 200 Mcg/5 Mcg Inhaler) 200 Mcg-5 Mcg/Actuation Hfa.aer.ad 2 PUFFS INH Q12H, GM 0 Refills Omeprazole Magnesium (Prilosec Otc) 20 Mg Tablet.dr 20 MG PO DAILY, TAB.SR Sennosides/Docusate Sodium (Senna-Docusate Sodium Tablet) 8.6 Mg-50 Mg Tablet 2 TAB PO Q12H for 5 Days, #20 TAB 0 Refills Tiotropium [place] (Spiriva Respimat) 4 Gm Mist.inhal 2 PUFFS PO DAILY Discharge Summary: History of present illness: This is a 73-year-old male with a history of COPD, chronic hypoxic respiratory failure on 2 L home oxygen was admitted for the evaluation of shortness of breath, burning micturition lower abdominal pain. Patient cough was associated with productive sputum with a yellowish tinge to it. Hospital course: Eventually laboratory was positive for leukocytosis with left neutrophilic shift, imaging positive for left lower lobe opacities. Consequently, patient's sputum culture was positive for Pseudomonas aeruginosa, urine culture positive for MRSA. Reportedly patient had prior urine cultures positive for Enterococcus, lactobacillus at various other times. Sputum was also positive for Pseudomonas in last July. MRSA in urine is unusual, could possibly be secondary to catheters or descending infection from the bloodstream. Since blood cultures are currently negative, this could have been secondary to the Gupta's that the patient had for about five days at the living facility 1 month prior to the admission. Patient was treated for perirectal abscess in 2021 that was positive for Streptococcus group B, bacteroides ovatus. EKG showed sinus tachycardia, chest x-ray demonstrated bibasilar airspace opacities. Patient was given Solu-Medrol 125 mg IV bolus followed by Solu- Medrol 60 mg IV b.i.d., duo nebs q.4 hours. Patient was started on incentive spirometry, Mucinex and leukocytosis improved, no fever recorded. CTA chest ruled out pulmonary embolism. Patient was started on linezolid and Levaquin per ID recommendations. Physical examination at discharge: General: Elderly malnourished, with poor hygiene. Alert, awake, oriented, not in acute distress HEENT: PERRLA, no icterus, pallor, lymphadenopathy, carotid bruit Respiratory system: Bilateral vesicular breath sounds heard, no adventitious breath sounds CVS: S1-S2 heard, no murmurs/rubs/gallop GI: Soft, nontender, no organomegaly, no guarding/rigidity, bowel sounds present Neuro: No focal neurological deficits present Extremities: No edema cyanosis clubbing/deformities Skin: Warm and dry, multiple small abrasions at various healing stages present in the right elbow, on lower extremity Vital Signs Date Time Temp Pulse Resp B/P (MAP) Pulse Ox O2 Delivery O2 Flow Rate FiO2 11/18/24 11:04 68 18 Nasal Cannula 2.0 11/18/24 10:55 95 28 11/18/24 05:00 98.9 122/43 (69) Laboratory Tests Test 11/17/24 03:05 11/18/24 04:12 White Blood Count 8.9 X10'3 7.8 X10'3 Red Blood Count 4.07 X10'6 3.98 X10'6 Hemoglobin 11.3 g/dl 11.0 g/dl Hematocrit 34.3 % 33.4 % Mean Corpuscular Volume 84.4 FL 84.0 FL Mean Corpuscular Hemoglobin 27.8 PG 27.6 PG Mean Corpuscular Hemoglobin Concent 33.0 g/dL 32.8 g/dL Red Cell Distribution Width 16.2 % 15.7 % Platelet Count 278 X10'3 275 X10'3 Mean Platelet Volume 7.6 FL 7.5 FL Neutrophils (%) (Auto) 90.7 % 81.4 % Lymphocytes (%) (Auto) 7.9 % 14.5 % Monocytes (%) (Auto) 1.4 % 4.0 % Eosinophils (%) (Auto) 0 % 0 % Basophils (%) (Auto) 0 % 0.1 % Neutrophils # (Auto) 8.1 X10'3 6.4 X10'3 Lymphocytes # (Auto) 0.7 X10'3 1.1 X10'3 Monocytes # (Auto) 0.1 X10'3 0.3 X10'3 Eosinophils # (Auto) 0.0 X10'3 0.0 X10'3 Basophils # (Auto) 0.0 X10'3 0.0 X10'3 CBC Comment Sodium Level 138 MMOL/L 140 MMOL/L Potassium Level 4.2 MMOL/L 4.0 MMOL/L Chloride Level 106 MMOL/L 108 MMOL/L Carbon Dioxide Level 26.3 MMOL/L 25.6 MMOL/L Anion Gap 6 6 Blood Urea Nitrogen 21 MG/DL 20 MG/DL Creatinine 0.94 MG/DL 0.90 MG/DL Estimated GFR/1.73 m2 78 ML/MIN 82 ML/MIN BUN/Creatinine Ratio 22.3 22.2 Glucose Level 125 MG/DL 134 MG/DL Calcium Level 8.9 MG/DL 8.7 MG/DL Magnesium Level 2.6 MG/DL 2.2 MG/DL Total Bilirubin 0.3 MG/DL 0.3 MG/DL Aspartate Amino Transf (AST/SGOT) 28 U/L 13 U/L Alanine Aminotransferase (ALT/SGPT) 19 U/L 19 U/L Alkaline Phosphatase 50 IU/L 43 IU/L Total Protein 6.8 G/DL 6.1 G/DL Albumin 2.8 G/DL 2.5 G/DL Globulin 4.0 G/DL 3.6 G/DL Albumin/Globulin Ratio 0.7 0.7 Chemistry Comments Vancomycin Level Trough 14.7 ug/mL Imaging: Chest x-ray: The lungs demonstrate bibasilar airspace opacities. The pulmonary vasculature is prominent. There is no pleural effusion. There is no pneumothorax. Aortic atherosclerotic disease. CTA chest: 1. No pulmonary embolism. 2. Moderate patchy posterior bibasilar pulmonary infiltrate, rebi-hctithr-qsuq-right, and mild multifocal infiltrate within the right middle lobe. Discharge recommendations: Follow up with your PCP and Dr. Segura outpatient in a week. We have prescribed two antibiotics for you, finish the course as prescribed. We have also prescribed prednisone taper, please take them as instructed along with the your regular inhalers. Return to the ED if you have worsening cough or worsening of your UTI symptoms. *Problems/Diagnosis: (1) Community acquired pneumonia Status: Acute (2) UTI (urinary tract infection) Status: Acute Total Time Spent on D/C: > 30 Minutes Date of Service: Nov 18, 2024 Billing Provider: OPAL PEDRAZA MD, DEEPIKA BANDI, RES Nov 18, 2024 18:12
[2024-11-19] MEDS ORDERED: VANCOMYCIN LEVEL IV ONE (02:30)
== END 2024-11-18 13:15 | disposition home health service (06) | DRG 871 ==
LOC: ER 16:40 → ORTHO 4S 20:12 → SUR 3N 11-16 16:40 → ORTHO 4S 11-16 16:48 → SUR 3N 11-16 17:30
PROVIDERS: ADMIT Internal Medicine; ATTEND Family Medicine
PROC: B32T1ZZ Computerized Tomography (CT Scan) of Left Pulmonary Artery using Low Osmolar Contrast (ICD-10-PCS; principal; 2024-11-15)
PROC: B3201ZZ Computerized Tomography (CT Scan) of Thoracic Aorta using Low Osmolar Contrast (ICD-10-PCS; 2024-11-15)
PROC: B32S1ZZ Computerized Tomography (CT Scan) of Right Pulmonary Artery using Low Osmolar Contrast (ICD-10-PCS; 2024-11-15)
DX: A41.9 Sepsis, unspecified organism (principal); J15.1 Pneumonia due to Pseudomonas; J96.21 Acute and chronic respiratory failure with hypoxia; J44.1 Chronic obstructive pulmonary disease with (acute) exacerbation; N39.0 Urinary tract infection, site not specified; J44.0 Chronic obstructive pulmonary disease with (acute) lower respiratory infection; Z20.822 Contact with and (suspected) exposure to COVID-19; D64.9 Anemia, unspecified; Z88.6 Allergy status to analgesic agent
CPT/HCPCS: 36415; 71045; 71275; 80048; 80053; 80061; 80202; 81001; 83036; 83605; 83735; 83880; 84145; 84484; 85025; 85379; 87040; 87070; 87077; 87081; 87088; 87186; 87811; 93005; 94640; 94760; 96365; 96375; 97116; 97161; 97530; 99285; A6209; A6212; A6213; A6258; G0378; J0456; J0696; J1644; J2919; J3373; J7040; Q9967

== ENCOUNTER 2024-12-25 15:45 | Inpatient (IN) | payer OTHER, MEDICARE, MEDICAID ==
[~2024-12-25] VITALS: Ht 177.8 cm; Wt 72.7 kg
[~2024-12-25 15:45] MED LIST changes: +LEVO750T68 PO; +LINE600T14 PO; +PRED10TA23 PO
--- NOTE | 2024-12-25 15:57 | ELECTROCARDIOGRAPH REPORT ---
[facility] Test Date: 2024-12-25 Test Time: 15:53:48 Pat Name: KAYLIE WISE Department: EMERGENCY ROOM Room: [place] [address] Gender: M General Magistrate: : [id number] Requested By: RONALDO VIZCAINO Order Number: [id number] Reading MD: Dr. Salvatore Prather Measurements Intervals Gray Rate: 89 P: 61 CO: 139 QRS: 91 QRSD: 116 T: 40 QT: 384 QTc: 468 Interpretive Statements Sinus rhythm Incomplete right bundle branch block Electronically Signed On 12-30-2024 20:45:[address] Salvatore Prather Please click the below link to view image of tracing.
--- NOTE | 2024-12-25 16:01 | Physician Documentation ---
History of Present Illness ~ Chief Complaint: Shortness of Breath Stated Complaint: R FLANK PAIN Time Seen by MD: 15:56 Primary Medical Doctor: None HPI 74-year-old male, presents by EMS with multiple complaints including shortness of breath and right flank pain. Per EMS, the patient initially called for shortness of breath. He has a history of COPD, in his on I have L nasal cannula oxygen at baseline. He did have his home oxygen on. He then complained of pain in his right lower back and flank. He also reported dysuria. He does have a history of UTI. Here in the ED, he denies having any fevers or new productive cough. He denies current chest pain. He denies vomiting or diarrhea. Medication Reconciliation Allergies: Coded Allergies: aspirin (Unverified Allergy, Unknown, 12/25/24) naproxen (Verified Allergy, Unknown, hives, swelling, 12/25/24) Scheduled Atorvastatin Calcium* (Lipitor*), 1 TAB PO HS, (Reported) Docusate Sodium (Colace), 1 CAP PO Q12H, (Reported) Guaifenesin (Mucinex), 1 TAB PO Q12H, (Reported) Lactobacillus Rhamnosus (Culturelle), 1 CAP PO DAILY, (Reported) Levofloxacin (Levofloxacin), 750 MG PO DAILY@11 Linezolid (Linezolid), 600 MG PO Q12H Metoprolol Tartrate (Lopressor tablet), 25 MG PO BID, (Reported) Mometasone/Formoterol (Dulera 200 Mcg/5 Mcg Inhaler), 2 PUFFS INH Q12H, (Reported) Omeprazole Magnesium (Prilosec Otc), 20 MG PO DAILY, (Reported) Prednisone (Prednisone), 0 PO DAILY Sennosides/Docusate Sodium (Senna-Docusate Sodium Tablet), 2 TAB PO Q12H, (Reported) Tiotropium [place] (Spiriva Respimat), 2 PUFFS PO DAILY, (Reported) Scheduled PRN Acetaminophen (Tylenol), 650 MG PO Q4H PRN for pain, (Reported) Albuterol Sulfate (Proair Hfa), 1 PUFFS IH Q4H PRN for SOB or wheezing, (Reported) Hydrocodone Bit/Acetaminophen 5/325 MG ([place] 5/325 MG), 1 TAB PO Q4H PRN for pain, (Reported) Hydrocodone Bit/Acetaminophen (Hydrocodone-Apap 10-325 Tablet), 1 TABLET PO Q4H PRN for pain, (Reported) Ipratropium/Albuterol Sulfate (Duoneb 2.5-0.5 Mg/3 Ml Soln), 3 ML IH Q4H PRN for SOB or wheezing, (Reported) Past Medical History Past Medical History: COPD, Emphysema, Constipation Past Surgical History: no surgical history Patient History: FH: lung cancer GRANDFATHER OR GRANDMOTHER MOTHER FH: throat cancer GRANDFATHER OR GRANDMOTHER Alcohol Use: Other Drug Use: none Lives with: Other Lives In: [facility] Review of Systems Constitutional: Denies: fever Respiratory: Reports: shortness of breath; Denies: cough Cardiovascular: Denies: chest pain Genitourinary: Reports: burning, flank pain Physical Exam Vital Signs: Temperature: 98.5, Source: Oral, Heart Rate: 93, Respiratory Rate: 24, Pulse Oximetry: 99, Weight: 72.730 Oxygen Flow Rate: 5.0 Physical Exam General: This is a chronically ill-appearing older man, not in distress HEENT: Atraumatic, oropharynx appears dry, he is edentulous Heart: Mild tachycardic, appears regular Lungs: Diminished breath sounds bilateral with scattered expiratory wheezes, oxygen saturations in the 90s on home 5 L nasal cannula. No coughing Abdomen: Soft, nondistended, mild tenderness to palpation in the suprapubic region Back: The patient does have some tenderness on palpation of the right lower back, with no overlying rashes. He does have right CVA tenderness to percussion Extremities: Warm and well-perfused, no significant edema Neuro: Alert and oriented, very hard of hearing Psychiatric: Calm and cooperative with exam Progress Results/Orders Results/Orders Orders - RONALDO VIZCAINO MD Chest,Single View (12/25/24 15:51) Monitor (12/25/24 15:51) Saline Lock (12/25/24 15:51) Oxygen (12/25/24 15:51) Hs Troponin I W Calculations (12/25/24 17:51) Hs Troponin I W Calculations (12/25/24 18:51) Cult Urine + [address] (12/25/24 17:35) Completed Orders - RONALDO VIZCAINO MD Chest,Single View (12/25/24 15:51) Cbc/Diff (12/25/24 15:51) BMP (12/25/24 15:51) PBNP (12/25/24 15:51) Electrocardiogram (12/25/24 15:51) Hs Troponin I W Calculations (12/25/24 15:51) Ua W/Microscopic, Cult If Ind (12/25/24 17:02) Vital Signs 12/25/24 12/25/24 15:47 17:00 Temp 98.5 Pulse 93 88 Resp 24 18 B/P (MAP) 99/70 (80) Pulse Ox 99 99 O2 Flow Rate 5.0 5.0 Laboratory Tests Test 12/25/24 16:00 12/25/24 17:02 White Blood Count 8.2 Red Blood Count 4.31 L Hemoglobin 11.6 L Hematocrit 35.7 L Mean Corpuscular Volume 82.8 Mean Corpuscular Hemoglobin 26.9 L Mean Corpuscular Hemoglobin Concent 32.4 L Red Cell Distribution Width 16.9 H Platelet Count 369 Mean Platelet Volume 7.1 L Neutrophils (%) (Auto) 72.1 Lymphocytes (%) (Auto) 14.6 L Monocytes (%) (Auto) 9.1 Eosinophils (%) (Auto) 3.4 Basophils (%) (Auto) 0.8 Neutrophils # (Auto) 5.9 Lymphocytes # (Auto) 1.2 Monocytes # (Auto) 0.7 Eosinophils # (Auto) 0.3 Basophils # (Auto) 0.1 CBC Comment Sodium Level 142 Potassium Level 3.9 Chloride Level 106 Carbon Dioxide Level 26.8 Anion Gap 9 Blood Urea Nitrogen 18 Creatinine 1.17 H Estimated GFR/1.73 m2 61 BUN/Creatinine Ratio 15.4 Glucose Level 100 Calcium Level 7.9 L Troponin I High Sensitivity 9 Pro-B-Type Natriuretic Peptide 853 H Albumin 2.5 L Chemistry Comments Urine Specimen Description Urinal Urine Color Yellow Urine Clarity Turbid Urine pH 6.5 Urine Specific [place] 1.015 Urine Protein 30 H Urine Glucose (UA) Negative Urine Ketones Negative Urine Occult Blood Small Urine Nitrite Positive H Urine Bilirubin Negative Urine Urobilinogen 0.2 Urine Leukocyte Esterase Large H Urine RBC 3-10 Urine WBC Tntc H Urine Squamous Epithelial Cells Few Urine Amorphous Phosphates 1+ Urine Bacteria 4+ Urine Culture Indicated Indicated Volume Urine Centrifuged 10 ml Urine Comment EKG/XRAY/CT/US/VASC/MRI EKG : Additional Comment I personally interpreted the EKG and this shows: Sinus rhythm, right bundle- branch block, rate 89, QTC 468, no STEMI Chest X-Ray : Additional Comments I personally interpreted the x-ray, and it shows: No focal consolidation, no pneumothorax, no mediastinal widening Consults/PCP Consults/PCP : Additional Comment Consult: I spoke to the internal medicine service, for admission in the hospital Medical Decision Making Additional information obtaine: N/A Findings Not applicable Heart Score: 3 Differential Dx:Considerations: Include: anxiety, asthma, bronchitis, cardiogenic shock, CHF, COPD, myocardial infarction, pneumonia, respiratory failure, upper resp. infection Additional Infomation The patient presents with multiple complaints including shortness of breath and flank pain/dysuria. His exam is concerning for possible pyelonephritis as well as underlying COPD. Labs are grossly unremarkable, but his urinalysis is consistent with an infection. On review his past urine cultures he had MRSA. Chest x-ray without obvious pneumonia. He was given duo nebs for his breathing. He was given pain medications. He will require admission for IV antibiotics. Departure Impression: Primary Impression: Pyelonephritis Additional Impression: COPD (chronic obstructive pulmonary disease) Referrals: NO PRIMARY CARE PROVIDER (PCP) Signature Scribe Signature: na Attestation: RONALDO Solorio MD Dec 25, 2024 16:01
[2024-12-25 16:13] LABS: MEAN PLATELET VOLUME 7.1 FL (7.4-10.4); RED CELL DISTRIBUTION WIDTH 16.9 % (11.5-14.5)
--- NOTE | 2024-12-25 16:16 | RADIOLOGY REPORT ---
CHEST RADIOGRAPH Indication: CP Technique: Single frontal view of the chest was obtained COMPARISON: DI CHEST,SINGLE VIEW on DOS: 11/14/24, DI CHEST,SINGLE VIEW on DOS: 09/13/24, DI CHEST,SINGLE VIEW on DOS: 09/02/24, DI CHEST,SINGLE VIEW on DOS: 08/10/24, DI CHEST,SINGLE VIEW on DOS: 03/09/24 FINDINGS: Lines and Tubes: None Lungs: Left basilar subsegmental atelectasis. Congestion. Pleura: No effusion. No pneumothorax. Cardiomediastinal contours: Unremarkable Bones: Unremarkable IMPRESSION: Increased interstital prominence. This may represent pulmonary vascular congestion and/or viral pneumonia. Clinical correlation advised. Left basilar subsegmental atelectasis.
[2024-12-25 16:41] LABS: CREATININE 1.17 MG/DL (0.60-1.10); PRO BRAIN NATRIURETIC PEPTIDE 853 PG/ML (0-450); TOTAL CARBON DIOXIDE 26.8 MMOL/L (24-32); eCRCL 55 ML/MIN; eGFR 61 ML/MIN
[2024-12-25 17:24] LABS: LEUKOCYTE ESTERASE ,URINE LARGE (Neg); NITRITES, URINE POSITIVE (Neg); OCCULT BLOOD,URINE SMALL (Neg)
[2024-12-25 17:33] LABS: UA COLLECTION TYPE URINAL
[2024-12-25 17:35] LABS: AMORPHOUS PHOSPHATES 1+; SQUAMOUS EPITHELIAL CELL,UR FEW /LPF (FEW)
[2024-12-25] MEDS: oxyCODONE/APAP 5-325mg tablet PO ONE (17:58)
[2024-12-25] MEDS: ipratropium/albuterol 3ml nebule NEB ONE (18:19)
[2024-12-25 18:20] VITALS: PULSE 93; RESP 23; O2SAT 99
[2024-12-25 18:26] VITALS: PULSE 96; RESP 23
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
[2024-12-25] MEDS ORDERED: mag hydrox/Alum hydrox/simeth 30ml oral suspension PO PRN (18:40)
[2024-12-25] MEDS ORDERED: ondansetron/PF 4mg/2ml inj IV PRN (18:40)
[2024-12-25] MEDS ORDERED: potassium Cl 40MEQ/1/2NS 520ml 520 ML IV PRN (18:40)
[2024-12-25] MEDS ORDERED: magnesium sulf-water 2g/50mL 50 ML IV PRN (18:40)
[2024-12-25] MEDS ORDERED: potassium Cl 20 mEq SR tablet PO PRN ×2 (18:40)
[2024-12-25] MEDS ORDERED: magnesium sulf-water 4G/100mL 100 ML IV PRN (18:40)
[2024-12-25] MEDS ORDERED: magnesium Cl slow-release 64mg tablet PO PRN (18:40)
[2024-12-25] MEDS ORDERED: ipratropium/albuterol 3ml nebule NEB PRN (18:45)
[2024-12-25] MEDS ORDERED: HYDROcodone/acetaminophen 5mg/325mg tablet PO PRN (19:00)
[2024-12-25] MEDS: ipratropium/albuterol 3ml nebule NEB SCH (19:00)
[2024-12-25] MEDS: vancomycin/NS 1 GM ADD-VANTAGE 250 ML IV ONE (19:01)
[2024-12-25] MEDS ORDERED: iohexol 300mg/ml 100ml inj. ONE (19:12)
[2024-12-25] MEDS: lactobacillus rhamnosus 10,000 MMU CELLS/CAPSULE PO SCH (19:52)
[2024-12-25] MEDS: normal saline 1000ml 1,000 ML IV SCH (19:55)
[2024-12-25] MEDS: K and/or MAG REPLACEMENT MC SCH (20:00)
[2024-12-25 20:16] LABS: ETHANOL < 10 MG/DL (<10)
[2024-12-25 20:17] LABS: OSMOLALITY 291 MOSM/K (280-300)
--- NOTE | 2024-12-25 20:21 | RADIOLOGY REPORT ---
CLINICAL HISTORY: possible pyleo , COPD TECHNIQUE: CT of the chest, abdomen, and pelvis was performed with IV contrast. Coronal and sagittal reformatted images were performed for better depiction of the anatomy. This exam was performed according to our departmental dose optimization program. Up-to-date CT equipment and radiation dose reduction techniques are utilized as appropriate. CTDI 12.9 DLP 1172 COMPARISON: DI CHEST,SINGLE VIEW on DOS: 12/25/24, DI CHEST,SINGLE VIEW on DOS: 11/14/24, CT CTA ABDOMEN PELVIS on DOS: 09/19/24, CT CT ABDOMEN PELVIS on DOS: 09/17/24, CT CT ABDOMEN PELVIS on DOS: 09/16/24 FINDINGS: CHEST: The thoracic aorta is normal in course and caliber. There are [] atherosclerotic calcifications. The heart is normal in size. There are 3-vessel coronary artery and extensive aortic valvular calcifications. No pericardial effusion is seen. No enlarged mediastinal, hilar, or axillary lymph node is present. The central airways are patent. There is no bronchiectasis. There are moderate to advanced centrilobular emphysematous changes in both lungs. There is no definite suspicious pulmonary nodule or area of consolidation. There is mild scarring/atelectasis at both lung bases. There is no pleural effusion present. ABDOMEN/PELVIS: The spleen, adrenal glands, gallbladder, kidneys, pancreas, and prostate gland are unremarkable. There is mild diffuse bladder wall thickening. There are subcentimeter hypodense lesions within the liver which are too small to adequately characterize. The abdominal aorta is normal in course and caliber. There are moderate to advanced atherosclerotic calcifications. There is no free intraperitoneal air or fluid. There is no enlarged abdominal or pelvic lymph node. There is mild cecal/proximal ascending colon wall thickening. BONES: There is a mild acute L2 vertebral body compression fracture with mild depression of the superior endplate. There is a mild acute compression fracture of the inferior endplate of L3 with mild compression. There is a new mild T8 vertebral body compression fracture. There is a moderate chronic T9 vertebral body compression fracture. IMPRESSION: New mild acute T8, L2, and L3 vertebral body compression fractures. Moderate chronic T9 vertebral body compression fracture. 3-vessel coronary artery and extensive aortic valvular calcification. Moderate to severe centrilobular emphysema. Mild bladder wall thickening. Please correlate with urinalysis for cystitis. Mild cecal/ proximal ascending colon wall thickening, most likely relates to previous significant infectious/ inflammatory process from September 19, 2024. Please ensure patient has undergone recent colonoscopy to exclude a mass.
[2024-12-25] MEDS: CefTRIAXone/D5W-Rocephin 1gm 50 ML IV SCH (21:18)
[2024-12-25] MEDS ORDERED: TAMS-55 PO (21:35)
[2024-12-25] MEDS ORDERED: SPIR50TA5 PO (21:35)
[2024-12-25] MEDS ORDERED: TRIH2TAB3 PO (21:35)
[2024-12-25 22:53] LABS: CREATININE,URINE RANDOM 83.0 MG/DL; OSMOLALITY UA 435 MOSM/K (50-1400); TOTAL PROTEIN,URINE RANDOM 52.9 MG/DL; UA UREA RANDOM 341.0 MG/DL; URINE AMPHETAMINE SCREEN NEGATIVE (Neg); URINE BARBITUATE SCREEN NEGATIVE (Neg); URINE BENZODIAZEPINES SCREEN NEGATIVE (Neg); URINE CANNABINOID SCREEN POSITIVE (Neg); URINE COCAINE SCREEN NEGATIVE (Neg); URINE METHADONE SCREEN NEGATIVE (Neg); URINE OPIATE SCREEN POSITIVE (Neg); URINE PHENCYCLIDINE SCREEN NEGATIVE (Neg)
[2024-12-25 23:00] VITALS: RESP 18; O2SAT 96
[2024-12-25 23:03] VITALS: BP 138/76; PULSE 87; RESP 22; TEMP 98.2; O2SAT 96
[2024-12-25] MEDS: HYDROcodone/acetaminophen 10/325mg tab PO PRN (23:08)
[2024-12-25 23:17] VITALS: PULSE 85; RESP 22; O2SAT 95
[2024-12-25 23:25] VITALS: PULSE 85; RESP 22
[2024-12-26] VITALS (16 sets, daily range): BP systolic 114–144; BP diastolic 65–81; PULSE 86–102; RESP 14–22; TEMP 98.1–98.3; O2SAT 94–99
[2024-12-26 06:56] LABS: MEAN PLATELET VOLUME 7.4 FL (7.4-10.4); RED CELL DISTRIBUTION WIDTH 16.7 % (11.5-14.5)
[2024-12-26] MEDS: pantoprazole 40mg Tablet.DR PO SCH (07:19)
[2024-12-26] MEDS: vancomycin/NS 1 GM ADD-VANTAGE 250 ML IV SCH (07:19)
[2024-12-26 07:25] LABS: CREATININE 0.97 MG/DL (0.60-1.10); TOTAL CARBON DIOXIDE 23.5 MMOL/L (24-32); eCRCL 67 ML/MIN; eGFR 75 ML/MIN
[2024-12-26] MEDS: methylPREDNISolone sod succ/PF 40mg inj. IV SCH ×2 (08:45→20:07)
[2024-12-26] MEDS: magnesium hydroxide 30ml (MOM) UD suspension PO PRN (11:17)
--- NOTE | 2024-12-26 14:27 | PROGRESS NOTE- Residence ---
Progress Note - Resident Providers to CC Resident Creating Document: ESTELLE GISELEBRANDON Flores, RES ~ Antibiotic Timeout Antibiotic Ordered?: Yes Subjective The patient has been evaluated at the bedside. Reports improvement of this urea but still mild sensation of burning with micturition. Also states back pain 5/10 in intensity, shortness of breadth improved. Currently at baseline 2 L of oxygen. No overnight events. Objective Vital Signs Date Time Temp Pulse Resp B/P (MAP) Pulse Ox O2 Delivery O2 Flow Rate FiO2 12/26/24 11:32 90 20 Nasal Cannula 2.0 12/26/24 11:23 98 28 12/26/24 10:00 98.2 114/81 (92) Physical exam: General: Awake, alert, oriented. No acute distress. Thin patient. No anemia, Jaundice or clubbing. HEENT: Conjunctive are pink, sclerae clear, no icterus, pupil is equal in both sides, reactive to light, no ear discharge, no pharyngeal erythema or an edema. Neck: Supple, no adenopathy, thyromegaly. Trachea is midline. No JVD. Chest: Respiratory: Diminished air entry bilaterally. Presence of wheezing bilaterally. Cardiovascular: S1-S2 regular sinus rhythm and, regular rate, no gallops, no rubs, no murmurs Abdomen: No visible distention, Bowel sounds present on auscultation, on palpation: soft, nontender, no guarding, no rigidity. Presence of ventral abdominal hernia easily reducible without signs of strangulation or inflammation. Extremities: No obvious deformities, no pitting edema bilaterally, capillary refill intact, peripheral pulsations are intact on both sides. Presence of swollen at the level of proximal metacarpophalangeal joints. Mild cubital deviation of bilateral hands. Presence of tenderness at the level of right costovertebral angle. Neurologic: Mental status: alert and conscious, oriented to place, person and time, preserved memory, normal speech. Cranial nerves I-XII: Normal. Motor system: Preserved power, coordination, no evidenced involuntary movements, strength 5/5 in four extremities. Sensory system: Preserved temperature, pain and vibration sensation. 2+ deep tendon reflexes in biceps, triceps, quadriceps. Skin: Warm and dry. Result Diagram: 12/26/24 0550 12/26/24 0550 Assessment Assessment 74-year-old male patient presented to the hospital with chief complaint of shortness of breath, burning with micturition. Plan Plan Acute exacerbation of COPD-improved: A: The patient came to the hospital with chief complaint of shortness of breath. He usually uses 2-3 L of oxygen at home, now requiring 6 L. Chest x-ray: Increased interstital prominence. This may represent pulmonary vascular congestion and/or viral pneumonia. Clinical correlation advised. 12/26/2024: The patient currently at baseline oxygen 2 L. COVID test: Negative. Plan: DuoNebs q.2h PRN. DuoNebs q.4h scheduled. Reduce Methylprednisolone to 30 mg b.i.d. IV. Ceftriaxone 1 g IV daily day 2. Azithromycin 500 mg daily day 2. To be completed tomorrow. Urinary tract infection/possible pyelonephritis: A: The patient came to the hospital with chief complaint of burning with micturition. Tenderness in right costovertebral angle evidenced. Urinalysis now is positive. Urinalysis from previous admission showed Staphylococcus aureus sensitive for vancomycin. Plan: Pending urine culture. Vancomycin pharmacy to dose. Culturelle [id number] mmu b.i.d. T8, L2, L3 mild compression fractures: A: CT scan of chest, abdomen, pelvis with IV contrast showed: New mild acute T8, L2, and L3 vertebral body compression fractures. Moderate chronic T9 vertebral body compression fracture. 3-vessel coronary artery and extensive aortic valvular calcification. Moderate to severe centrilobular emphysema. Mild bladder wall thickening. Please correlate with urinalysis for cystitis. Mild cecal/ proximal ascending colon wall thickening, most likely relates to previous significant infectious/ inflammatory process from September 19, 2024. Please ensure patient has undergone recent colonoscopy to exclude a mass. Plan: TLSO ordered. Lidocaine patch daily. Continue physical therapy. Pain management with [place] 5/10 mg q.6h PRN for moderate or severe pain respectively. Mild cecal/proximal ascending colon wall thickening: Suspected mass: CTA of chest/abdomen/pelvis: Mild cecal/ proximal ascending colon wall thickening, most likely relates to previous significant infectious/ inflammatory process from September 19, 2024. Please ensure patient has undergone recent colonoscopy to exclude a mass. The patient never had a colonoscopy before. Plan: GI consulted for possible colonoscopy. Possible rheumatoid arthritis: A: Mild cubital deviation of bilateral hands. Some swelling in metacarpophalangeal joints. Plan: Follow-up RA. Possible acute kidney injury likely secondary to vasomotor nephropathy: A: Creatinine levels 1.17, GFR 61, BUN/creatinine ratio 15.4. Fractional excretion of sodium 1.0 %, fractional excretion of urea: 23.4% likely prerenal. Plan: Continue NS at 50 mL/hour. H/O of PE: A: As per medical records he does have a history of PE more than six months ago. Currently not on blood thinners. Plan: Recent CTA of the chest and no evidence of P for more than six months. No recommended anticoagulation. Code status: Full code DVT prophylaxis: SCDs Analgesia/sedation: Morphine/[place] Line/tube: PIV GI prophylaxis: Protonix Nutrition: Regular diet PT: Yes Prognosis: guarded Disposition: Continue medical management. GI recommended due to wall thickening evidenced in CTA of the abdomen at the level of the ascending colon. Awaiting recommendations. Brandon Robertson Internal Medicine Resident [facility] Patient is seen and examined with resident at bedside Date of Service: Dec 26, 2024 Billing Provider: NORBERT SHANKAR MD Common Visit Codes: [id number] INP/OBS CARE(HIGH) BRANDON SEN, RES Dec 26, 2024 14:27 NORBERT SHANKAR MD Dec 27, 2024 09:50
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
[2024-12-26] MEDS: HYDROcodone/acetaminophen 10/325mg tab PO PRN (15:58)
[2024-12-26] MEDS ORDERED: HYDROcodone/acetaminophen 5mg/325mg tablet PO PRN (16:00)
[2024-12-26] MEDS ORDERED: MEGE400O40 PO (17:45)
[2024-12-27] VITALS (22 sets, daily range): BP systolic 133–137; BP diastolic 72–82; PULSE 8–113; RESP 17–22; TEMP 98.2–98.6; O2SAT 92–98
[2024-12-27] MEDS: VANCOMYCIN LEVEL IV ONE (06:30)
[2024-12-27 06:42] LABS: MEAN PLATELET VOLUME 7.5 FL (7.4-10.4); RED CELL DISTRIBUTION WIDTH 17.0 % (11.5-14.5)
[2024-12-27 07:18] LABS: CREATININE 0.89 MG/DL (0.60-1.10); TOTAL CARBON DIOXIDE 23.9 MMOL/L (24-32); eCRCL 73 ML/MIN; eGFR 83 ML/MIN
[2024-12-27 08:18] LABS: % IRON SATURATION 12 % (11-46)
[2024-12-27] MEDS: iron sucrose complex injection 300 MG in normal saline 250ml IV soln 250 ML IV SCH (11:45)
[2024-12-27] MEDS: morphine ER 15mg tablet PO SCH (12:34)
--- NOTE | 2024-12-27 13:39 | PROGRESS NOTE- Residence ---
Progress Note - Resident Providers to CC Resident Creating Document: ANNE PATIÑO RES ~ Antibiotic Timeout Antibiotic Ordered?: Yes Subjective The patient has been evaluated at the bedside. Patient still complaining of pain . Currently at baseline 2 L of oxygen. No overnight events. Objective Vital Signs Date Time Temp Pulse Resp B/P (MAP) Pulse Ox O2 Delivery O2 Flow Rate FiO2 12/27/24 12:09 85 18 Nasal Cannula 2.0 12/27/24 11:59 97 28 12/27/24 10:00 98.2 133/82 (99) Result Diagram: 12/27/24 0604 12/27/24 0604 General: Awake, alert, oriented. No acute distress. Thin patient. No anemia, Jaundice or clubbing. HEENT: Conjunctive are pink, sclerae clear, no icterus, pupil is equal in both sides, reactive to light, no ear discharge, no pharyngeal erythema or an edema. Neck: Supple, no adenopathy, thyromegaly. Trachea is midline. No JVD. Chest: Respiratory: Diminished air entry bilaterally. Presence of wheezing bilaterally. Cardiovascular: S1-S2 regular sinus rhythm and, regular rate, no gallops, no rubs, no murmurs Abdomen: No visible distention, Bowel sounds present on auscultation, on palpation: soft, nontender, no guarding, no rigidity. Presence of ventral abdominal hernia easily reducible without signs of strangulation or inflammation. Extremities: No obvious deformities, no pitting edema bilaterally, capillary refill intact, peripheral pulsations are intact on both sides. Presence of swollen at the level of proximal metacarpophalangeal joints. Mild cubital deviation of bilateral hands. Presence of tenderness at the level of right costovertebral angle. Neurologic: Mental status: alert and conscious, oriented to place, person and time, preserved memory, normal speech. Cranial nerves I-XII: Normal. Motor system: Preserved power, coordination, no evidenced involuntary movements, strength 5/5 in four extremities. Sensory system: Preserved temperature, pain and vibration sensation. 2+ deep tendon reflexes in biceps, triceps, quadriceps. Skin: Warm and dry. Assessment Assessment 74-year-old male patient presented to the hospital with chief complaint of shortness of breath, burning with micturition. Plan Plan Acute exacerbation of COPD-improved: A: The patient came to the hospital with chief complaint of shortness of breath. He usually uses 2-3 L of oxygen at home, now requiring 6 L. Chest x-ray: Increased interstital prominence. This may represent pulmonary vascular congestion and/or viral pneumonia. Clinical correlation advised. 12/26/2024: The patient currently at baseline oxygen 2 L. COVID test: Negative. Plan: DuoNebs q.2h PRN. DuoNebs q.4h scheduled. Reduce Methylprednisolone to 30 mg b.i.d. IV. Ceftriaxone 1 g IV daily day 2. Azithromycin 500 mg daily day 2. To be completed tomorrow. 12/27/24- DuoNebs q.2h p.r.n. DuoNebs q.4h scheduled Patient on methylprednisolone 30 mg b.i.d. IV Ceftriaxone 1 g IV daily day 3 Last dose of azithromycin 500 mg given today, day 3. We will discontinue. Urinary tract infection/possible pyelonephritis: A: The patient came to the hospital with chief complaint of burning with micturition. Tenderness in right costovertebral angle evidenced. Urinalysis now is positive. Urinalysis from previous admission showed Staphylococcus aureus sensitive for vancomycin. Plan: Pending urine culture. Vancomycin pharmacy to dose. Culturelle [id number] mmu b.i.d. 12/27/24- Urine cultures grew staph aureus, MRSA sensitive to vancomycin We will continue vancomycin. Culturelle [id number] bid. T8, L2, L3 mild compression fractures: A: CT scan of chest, abdomen, pelvis with IV contrast showed: New mild acute T8, L2, and L3 vertebral body compression fractures. Moderate chronic T9 vertebral body compression fracture. 3-vessel coronary artery and extensive aortic valvular calcification. Moderate to severe centrilobular emphysema. Mild bladder wall thickening. Please correlate with urinalysis for cystitis. Mild cecal/ proximal ascending colon wall thickening, most likely relates to previous significant infectious/ inflammatory process from September 19, 2024. Please ensure patient has undergone recent colonoscopy to exclude a mass. Plan: TLSO ordered. Lidocaine patch daily. Continue physical therapy. Pain management with [place] 5/10 mg q.6h PRN for moderate or severe pain respectively. 12/27/24- Added MS Contin 15 mg Q a.m. p.o. pain control. Mild cecal/proximal ascending colon wall thickening: Suspected mass: CTA of chest/abdomen/pelvis: Mild cecal/ proximal ascending colon wall thickening, most likely relates to previous significant infectious/ inflammatory process from September 19, 2024. Please ensure patient has undergone recent colonoscopy to exclude a mass. The patient never had a colonoscopy before. Plan: GI consulted for possible colonoscopy. Possible rheumatoid arthritis: A: Mild cubital deviation of bilateral hands. Some swelling in metacarpophalangeal joints. Plan: Follow-up RA. Possible acute kidney injury likely secondary to vasomotor nephropathy: A: Creatinine levels 1.17, GFR 61, BUN/creatinine ratio 15.4. Fractional excretion of sodium 1.0 %, fractional excretion of urea: 23.4% likely prerenal. Plan: Continue NS at 50 mL/hour. 12/27/24- Creatinine back to normal. Discontinued NS. We will continue to monitor. H/O of PE: A: As per medical records he does have a history of PE more than six months ago. Currently not on blood thinners. Plan: Recent CTA of the chest and no evidence of P for more than six months. No recommended anticoagulation. Code status: Full code DVT prophylaxis: SCDs Analgesia/sedation: Morphine/[place] Line/tube: PIV GI prophylaxis: Protonix Nutrition: Regular diet PT: Yes Prognosis: guarded Disposition: Continue medical management. GI recommended due to wall thickening evidenced in CTA of the abdomen at the level of the ascending colon. Awaiting recommendations. Anne Patiño PGY-1 Date of Service: Dec 27, 2024 Billing Provider: NORBERT SHANKAR MD Common Visit Codes: [id number] INP/OBS CARE(HIGH) ANNE PATIÑO, RES Dec 27, 2024 13:39 NORBERT SHANKAR MD Dec 28, 2024 10:46
[2024-12-27] MEDS: guaiFENesin ER 600mg tablet PO SCH (23:24)
[2024-12-27] MEDS: docusate sod 100mg capsule PO SCH (23:24)
[2024-12-28] VITALS (17 sets, daily range): BP systolic 101–138; BP diastolic 55–77; PULSE 75–117; RESP 17–23; TEMP 98.1–98.8; O2SAT 93–98
[2024-12-28 06:04] LABS: MEAN PLATELET VOLUME 7.5 FL (7.4-10.4); RED CELL DISTRIBUTION WIDTH 17.4 % (11.5-14.5)
[2024-12-28 06:20] LABS: CREATININE 0.80 MG/DL (0.60-1.10); TOTAL CARBON DIOXIDE 26.3 MMOL/L (24-32); eCRCL 81 ML/MIN; eGFR > 90 ML/MIN
[2024-12-28] MEDS: metoprolol succinate 25mg (24-HOUR) SR. Tablet PO SCH (11:51)
[2024-12-28 12:46] LABS: OCCULT BLOOD STOOL NEGATIVE (Neg)
--- NOTE | 2024-12-28 12:55 | PROGRESS NOTE- Residence ---
Progress Note - Resident Providers to CC Resident Creating Document: ANIA BUENO RES ~ Central Line/PICC still needed: N\A Antibiotic Timeout Antibiotic Ordered?: Yes Subjective The patient has been evaluated at the bedside. No overnight events. Complaints of diarrhea, melena, hematochezia, nausea/vomiting. Objective Vital Signs Date Time Temp Pulse Resp B/P (MAP) Pulse Ox O2 Delivery O2 Flow Rate FiO2 12/28/24 11:53 77 18 Nasal Cannula 2.0 12/28/24 11:52 96 28 12/28/24 10:30 98.7 138/77 (97) Result Diagram: 12/28/24 0507 12/28/24 0507 General: Awake and Alert, no acute distress. HEENT: Conjunctiva pink, Sclera clear, Mucus Membranes moist. Neck: Supple without masses and tenderness. Resp: Unlabored. Lungs clear to auscultation bilaterally. Heart: Regular Rate and rhythm, normal S1 and S2 without murmur, rub or gallop. Abdomen: Soft and non tender no organomegaly Extremities: No cyanosis,clubbing or edema. Skin: Warm and Dry. Plan Plan Assessment: This is a 74-year-old male currently being treated for acute exacerbation COPD. He was incidentally found to have cecal and proximal ascending colon wall thickening raising concern for underlying colonic pathology with decreased appetite and significant weight loss in the past 1 month. Plan: Patient will need colonoscopy once stabilized or as an outpatient since he is currently being treated for COPD exacerbation and not having any GI symptoms. His blood work including CBC and CMP is within the normal range. Continue bowel regimen to prevent constipation and bloating. Rest of the conditions managed according to primary team. Ania Bueno. Internal Medicine, PGY 1 [facility] Date of Service: Dec 28, 2024 Billing Provider: TRACI BYNUM MD, SHIVANI, YOLI Dec 28, 2024 12:55
--- NOTE | 2024-12-28 13:57 | PROGRESS NOTE- Residence ---
Progress Note - Resident Providers to CC Resident Creating Document: ETHAN SEN, RES ~ Antibiotic Timeout Antibiotic Ordered?: Yes Subjective The patient has been evaluated at bedside. No overnight events. Denies abdominal pain, currently at the baseline oxygen 2 L. Objective Vital Signs Date Time Temp Pulse Resp B/P (MAP) Pulse Ox O2 Delivery O2 Flow Rate FiO2 12/28/24 11:53 77 18 Nasal Cannula 2.0 12/28/24 11:52 96 28 12/28/24 10:30 98.7 138/77 (97) Physical exam: General: Awake, alert, oriented. No acute distress. Thin patient. No anemia, Jaundice or clubbing. HEENT: Conjunctive are pink, sclerae clear, no icterus, pupil is equal in both sides, reactive to light, no ear discharge, no pharyngeal erythema or an edema. Neck: Supple, no adenopathy, thyromegaly. Trachea is midline. No JVD. Chest: Respiratory: Diminished air entry bilaterally. No evidence of wheezing or rhonchi. Cardiovascular: S1-S2 regular sinus rhythm and, regular rate, no gallops, no rubs, no murmurs Abdomen: No visible distention, Bowel sounds present on auscultation, on palpation: soft, nontender, no guarding, no rigidity. Presence of ventral abdominal hernia easily reducible without signs of strangulation or inflammation. Extremities: No obvious deformities, no pitting edema bilaterally, capillary refill intact, peripheral pulsations are intact on both sides. Presence of swollen at the level of proximal metacarpophalangeal joints. Mild cubital deviation of bilateral hands. Neurologic: Mental status: alert and conscious, oriented to place, person and time, preserved memory, normal speech. Cranial nerves I-XII: Normal. Motor system: Preserved power, coordination, no evidenced involuntary movements, strength 5/5 in four extremities. Sensory system: Preserved temperature, pain and vibration sensation. 2+ deep tendon reflexes in biceps, triceps, quadriceps. Skin: Warm and dry. Result Diagram: 12/28/24 0507 12/28/24 0507 Assessment Assessment 74-year-old male patient presented to the hospital with chief complaint of shortness of breath, burning with micturition. Plan Plan Acute exacerbation of COPD-improved: A: The patient came to the hospital with chief complaint of shortness of breath. He usually uses 2-3 L of oxygen at home, now requiring 6 L. Chest x-ray: Increased interstital prominence. This may represent pulmonary vascular congestion and/or viral pneumonia. Clinical correlation advised. 12/26/2024: The patient currently at baseline oxygen 2 L. COVID test: Negative. 12/28/2024: Completed dose of ceftriaxone and azithromycin. Plan: Prednisone 40 mg daily. DuoNebs q.2h PRN. DuoNeb q.4h scheduled. Urinary tract infection/possible pyelonephritis: A: The patient came to the hospital with chief complaint of burning with micturition. Tenderness in right costovertebral angle evidenced. Urinalysis now is positive. Urinalysis from previous admission showed Staphylococcus aureus sensitive for vancomycin. 12/27/24-Urine cultures grew staph aureus, MRSA sensitive to vancomycin 12/28/2024: Vancomycin to be completed for seven days. Culturelle [id number] bid. T8, L2, L3 mild compression fractures: A: CT scan of chest, abdomen, pelvis with IV contrast showed: New mild acute T8, L2, and L3 vertebral body compression fractures. Moderate chronic T9 vertebral body compression fracture. 3-vessel coronary artery and extensive aortic valvular calcification. Moderate to severe centrilobular emphysema. Mild bladder wall thickening. Please correlate with urinalysis for cystitis. Mild cecal/ proximal ascending colon wall thickening, most likely relates to previous significant infectious/ inflammatory process from September 19, 2024. Please ensure patient has undergone recent colonoscopy to exclude a mass. 12/27/24- Morphine 15 mg Q a.m. p.o. pain control. Continue TLSO. Lidocaine patch daily. Continue physical therapy. Pain management with [place] 5/10 mg q.6h PRN for moderate or severe pain respectively. Mild cecal/proximal ascending colon wall thickening: Suspected mass: CTA of chest/abdomen/pelvis: Mild cecal/ proximal ascending colon wall thickening, most likely relates to previous significant infectious/ inflammatory process from September 19, 2024. Please ensure patient has undergone recent colonoscopy to exclude a mass. The patient never had a colonoscopy before. 12/28/2024: GI following the patient, recommended colonoscopy was the patient is stabilized with oxygen requirement or as an outpatient. Possible rheumatoid arthritis: A: Mild cubital deviation of bilateral hands. Some swelling in metacarpophalangeal joints. Plan: Follow-up RA. Possible acute kidney injury likely secondary to vasomotor nephropathy: A: Creatinine levels 1.17, GFR 61, BUN/creatinine ratio 15.4. Fractional excretion of sodium 1.0 %, fractional excretion of urea: 23.4% likely prerenal. Creatinine function within reference range. IV fluids discontinued. H/O of PE: A: As per medical records he does have a history of PE more than six months ago. Currently not on blood thinners. Plan: Recent CTA of the chest and no evidence of PE for more than six months. No recommended anticoagulation. Code status: Full code DVT prophylaxis: SCDs Analgesia/sedation: Morphine/[place] Line/tube: PIV GI prophylaxis: Protonix Nutrition: Regular diet PT: Recommends post-acute care. Prognosis: guarded Disposition: Continue medical management. Awaiting for placement. Ethan Robertson Internal Medicine Resident [facility] Date of Service: Dec 28, 2024 Billing Provider: NORBERT SHANKAR MD Common Visit Codes: [id number] INP/OBS CARE(HIGH) ETHAN SEN, RES Dec 28, 2024 13:57 NORBERT SHANKAR MD Dec 29, 2024 08:47
--- NOTE | 2024-12-28 14:39 | RADIOLOGY REPORT ---
CHEST RADIOGRAPH Indication: Rule out aspiration Technique: Single frontal view of the chest was obtained COMPARISON: CT CT CHEST ABDOMEN PELVIS W/ IV CONTRAST on DOS: 12/25/24, DI CHEST,SINGLE VIEW on DOS: 12/25/24, DI CHEST,SINGLE VIEW on DOS: 11/14/24, DI CHEST,SINGLE VIEW on DOS: 09/13/24, DI CHEST,SINGLE VIEW on DOS: 09/02/24 FINDINGS: Lines and Tubes: None Lungs: Left basilar subsegmental atelectasis. Pleura: No effusion. No pneumothorax. Cardiomediastinal contours: Unremarkable Bones: Unremarkable IMPRESSION: Left basilar subsegmental atelectasis.
[2024-12-29] VITALS (12 sets, daily range): BP systolic 102–116; BP diastolic 63–70; PULSE 76–86; RESP 16–22; TEMP 98.1; O2SAT 92–95
[2024-12-29 04:36] LABS: MEAN PLATELET VOLUME 7.5 FL (7.4-10.4); RED CELL DISTRIBUTION WIDTH 17.5 % (11.5-14.5)
[2024-12-29 04:46] LABS: CREATININE 0.96 MG/DL (0.60-1.10); TOTAL CARBON DIOXIDE 30.3 MMOL/L (24-32); eCRCL 67 ML/MIN; eGFR 76 ML/MIN
[2024-12-29] MEDS ORDERED: methylPREDNISolone sod succ/PF 40mg inj. IV SCH (08:00)
[2024-12-29] MEDS: HYDROcodone/acetaminophen 10/325mg tab PO ONE (10:36)
--- NOTE | 2024-12-29 18:46 | DISCHARGE SUMMARY-Residence ---
Discharge Summary Providers to CC Resident Creating Document: BRANDON SEN PRAVEEN, RES ~ Discharge Summary Admission Diagnosis: SOB Hospital Course DATE OF ADMISSION: 12/25/2024 DATE OF DISCHARGE: 12/29/2024 Discharge Diagnosis\Comment: Acute hypoxemic respiratory failure secondary to acute exacerbation of COPD- improved Possible bacterial pneumonia. Urinary tract infection/possible pyelonephritis T8, L2, L3 mild compression fractures Mild cecal/proximal ascending colon wall thickening-suspected mass Possible rheumatoid arthritis Possible acute kidney injury likely secondary to vasomotor nephropathy H/O of PE Operations\Procedures: None Consultants: GI Complications: None Condition on DC: Stable Discharge Summary: HPI: 74-year-old male patient presented to the hospital with chief complaint of shortness of breaths. The patient states that his shortness of breath started approximately 24 hours ago. He usually uses 2 L of oxygen at home but at this time he needed to increase his oxygen to approximately 4 L but despite that he was still having some shortness of breaths, he also endorses some dry coughing. The patient also mentioned that he noticed since four days ago pain in the level of the right side of the lower back scaled as 8/10 in intensity without radiation and described as stabbing type. Associated to these symptom the patient also endorses burning sensation with micturition, chills mostly last night. He currently denies any chest pain, palpitations, intestinal symptoms. The patient usually uses a walker for ambulation at home. Hospital course: 74-year-old male patient presented with chief complaint of shortness of breath. The patient was found with the acute hypoxemic respiratory failure secondary to COPD exacerbation. The patient also mentioned back pain and burning sensation with micturition, urinalysis came back positive. Sensitivity showed Staphylococcus aureus sensitive for vancomycin and linezolid. The patient was started on antibiotic therapy based on vancomycin, upon the following days the patient mentioned improvement of his symptoms. The patient was also started on treatment for COPD exacerbation based on steroids, DuoNebs and antibiotics. Patient's shortness of breath significantly improved, his oxygen requirements went down to his baseline 2 L. The patient was also found with T8, L2, L3 mild compression fractures reason for which TLSO was placed. Physical therapy evaluated the patient. Who recommended post-acute care. In the CT scan of the abdomen and pelvis thickening of the ascending colon was also found, due to suspicion of malignancy GI was consulted who assessed the patient and due to the absence of current GI symptoms, colonoscopy was recommended as an outpatient. The patient remained hemodynamically stable at his baseline oxygen 2 L. The patient will be discharged to [facility]. Discharge course: Patient remained hemodynamically stable. The patient will be discharged with the following instructions: CBC and CMP within one week. Continue physical therapy. Follow-up with primary care physician within one week. The patient will need colonoscopy as an outpatient due to thickening found in the ascending colon. Continue Tylenol 650 mg q.4h PRN for pain. Albuterol (ProAir) one puff q.4h PRN for wheezing or shortness of breaths. Atorvastatin 40 mg daily. Docusate 100 mg every 12 hours. Guaifenesin 600 mg every 12 hours. [place] 5 mg/10 mg q.4h as needed for pain for moderate or severe pain respectively. Culturelle [id number] mmu every 12 hours. Metoprolol one tablet of 25 mg every 12 hours. Dulera inhaler two puffs every 12 hours. Omeprazole one tablet of 20 mg daily. Senna two tablets every 12 hours. Spironolactone one tablet of 50 mg daily. Tamsulosin one tablet of 0.4 mg daily. Spiriva two puffs daily. Trihexyphenidyl one tablet of 2 mg every 12 hours. Linezolid one tablet of 600 mg every 12 hours for 10 more days. Morphine one tablet of 15 mg every day for 10 days. Prednisolone 40 mg daily for 3 days then 30 mg daily for 3 days then 20 mg daily for 3 days then 10 mg daily for 3 days then 5 mg daily for 3 days then stop. Physical exam: General: Awake, alert, oriented. No acute distress. Thin patient. No anemia, Jaundice or clubbing. HEENT: Conjunctive are pink, sclerae clear, no icterus, pupil is equal in both sides, reactive to light, no ear discharge, no pharyngeal erythema or an edema. Neck: Supple, no adenopathy, thyromegaly. Trachea is midline. No JVD. Chest: Respiratory: Diminished air entry bilaterally. No evidence of wheezing or rhonchi. Cardiovascular: S1-S2 regular sinus rhythm and, regular rate, no gallops, no rubs, no murmurs Abdomen: No visible distention, Bowel sounds present on auscultation, on palpation: soft, nontender, no guarding, no rigidity. Presence of ventral abdominal hernia easily reducible without signs of strangulation or inflammation. Extremities: No obvious deformities, no pitting edema bilaterally, capillary refill intact, peripheral pulsations are intact on both sides. Presence of swollen at the level of proximal metacarpophalangeal joints. Mild cubital deviation of bilateral hands. Neurologic: Mental status: alert and conscious, oriented to place, person and time, preserved memory, normal speech. Cranial nerves I-XII: Normal. Motor system: Preserved power, coordination, no evidenced involuntary movements, strength 5/5 in four extremities. Sensory system: Preserved temperature, pain and vibration sensation. 2+ deep tendon reflexes in biceps, triceps, quadriceps. Skin: Warm and dry. Vital Signs Date Time Temp Pulse Resp B/P (MAP) Pulse Ox O2 Delivery O2 Flow Rate FiO2 12/29/24 16:20 76 116/70 (85) 12/29/24 16:19 20 12/29/24 12:04 98.1 95 Nasal Cannula 3.0 12/29/24 11:37 28 Laboratory Tests Test 12/28/24 05:07 12/28/24 11:40 12/29/24 03:36 White Blood Count 9.5 X10'3 9.6 X10'3 Red Blood Count 3.77 X10'6 3.89 X10'6 Hemoglobin 10.2 g/dl 10.6 g/dl Hematocrit 31.0 % 32.1 % Mean Corpuscular Volume 82.2 FL 82.3 FL Mean Corpuscular Hemoglobin 27.0 PG 27.3 PG Mean Corpuscular Hemoglobin Concent 32.8 g/dL 33.1 g/dL Red Cell Distribution Width 17.4 % 17.5 % Platelet Count 298 X10'3 290 X10'3 Mean Platelet Volume 7.5 FL 7.5 FL Neutrophils (%) (Auto) 89.6 % 66.8 % Lymphocytes (%) (Auto) 7.7 % 22.3 % Monocytes (%) (Auto) 2.4 % 10.3 % Eosinophils (%) (Auto) 0.1 % 0.5 % Basophils (%) (Auto) 0.2 % 0.1 % Neutrophils # (Auto) 8.5 X10'3 6.4 X10'3 Lymphocytes # (Auto) 0.7 X10'3 2.1 X10'3 Monocytes # (Auto) 0.2 X10'3 1.0 X10'3 Eosinophils # (Auto) 0.0 X10'3 0.0 X10'3 Basophils # (Auto) 0.0 X10'3 0.0 X10'3 CBC Comment Sodium Level 142 MMOL/L 141 MMOL/L Potassium Level 5.0 MMOL/L 4.6 MMOL/L Chloride Level 109 MMOL/L 109 MMOL/L Carbon Dioxide Level 26.3 MMOL/L 30.3 MMOL/L Anion Gap 7 2 Blood Urea Nitrogen 19 MG/DL 23 MG/DL Creatinine 0.80 MG/DL 0.96 MG/DL Estimated GFR/1.73 m2 > 90 ML/MIN 76 ML/MIN BUN/Creatinine Ratio 23.8 24.0 Glucose Level 128 MG/DL 105 MG/DL Calcium Level 8.7 MG/DL 8.1 MG/DL Magnesium Level 2.4 MG/DL 2.0 MG/DL Total Bilirubin 0.2 MG/DL 0.2 MG/DL Aspartate Amino Transf (AST/SGOT) 16 U/L 12 U/L Alanine Aminotransferase (ALT/SGPT) 13 U/L 7 U/L Alkaline Phosphatase 84 IU/L 88 IU/L Total Protein 6.5 G/DL 5.8 G/DL Albumin 2.4 G/DL 2.2 G/DL Globulin 4.1 G/DL 3.6 G/DL Albumin/Globulin Ratio 0.6 0.6 Chemistry Comments Stool Occult Blood Negative Imaging: Chest x-ray: Increased interstital prominence. This may represent pulmonary vascular congestion and/or viral pneumonia. Clinical correlation advised. Left basilar subsegmental atelectasis. Chest/abdomen/pelvis CT scan: New mild acute T8, L2, and L3 vertebral body compression fractures. Moderate chronic T9 vertebral body compression fracture. 3-vessel coronary artery and extensive aortic valvular calcification. Moderate to severe centrilobular emphysema. Mild bladder wall thickening. Please correlate with urinalysis for cystitis. Mild cecal/ proximal ascending colon wall thickening, most likely relates to previous significant infectious/ inflammatory process from September 19, 2024. Please ensure patient has undergone recent colonoscopy to exclude a mass. *Problems/Diagnosis: (1) Thoracic compression fracture Status: Acute (2) Lumbar compression fracture Status: Acute (3) Urinary tract infection Status: Acute (4) Acute hypoxemic respiratory failure Status: Acute (5) COPD exacerbation Status: Acute Total Time Spent on D/C: > 30 Minutes Date of Service: Dec 29, 2024 Billing Provider: NORBERT SHANKAR MD Problem Qualifiers (1) Thoracic compression fracture: Encounter type: initial encounter Thoracic vertebra fracture level: T8 Qualified Codes: S22.060A - Wedge compression fracture of T7-T8 vertebra, initial encounter for closed fracture (2) Lumbar compression fracture: Encounter type: initial encounter Lumbar vertebra fracture level: L2 Qualified Codes: S32.020A - [place]ge compression fracture of second lumbar vertebra, initial encounter for closed fracture BRANDON SEN, RES Dec 29, 2024 18:44
[2024-12-30 11:30] LABS: % FREE PSA 4.0 % (.); PROSTATE SPECIFIC AG, SERUM 0.5 ng/mL (0.0-4.0)
== END 2024-12-29 16:45 | DRG 189 ==
LOC: ER 15:46 → ED HOLD 19:58 → EDBEDREQ 21:01 → ORTHO 4S 23:06 → SUR 3N 12-27 15:30
PROVIDERS: ADMIT Internal Medicine; ATTEND Internal Medicine
PROC: BW251ZZ Computerized Tomography (CT Scan) of Chest, Abdomen and Pelvis using Low Osmolar Contrast (ICD-10-PCS; principal; 2024-12-25)
DX: J96.01 Acute respiratory failure with hypoxia (principal); J15.9 Unspecified bacterial pneumonia; N17.0 Acute kidney failure with tubular necrosis; M48.56XA Collapsed vertebra, not elsewhere classified, lumbar region, initial encounter for fracture; J44.1 Chronic obstructive pulmonary disease with (acute) exacerbation; N12 Tubulo-interstitial nephritis, not specified as acute or chronic; M48.54XA Collapsed vertebra, not elsewhere classified, thoracic region, initial encounter for fracture; J44.0 Chronic obstructive pulmonary disease with (acute) lower respiratory infection; Z20.822 Contact with and (suspected) exposure to COVID-19; J43.9 Emphysema, unspecified; K63.89 Other specified diseases of intestine; B95.8 Unspecified staphylococcus as the cause of diseases classified elsewhere; Z85.819 Personal history of malignant neoplasm of unspecified site of lip, oral cavity, and pharynx; Z85.118 Personal history of other malignant neoplasm of bronchus and lung
CPT/HCPCS: 36415; 71045; 71260; 74177; 80048; 80053; 80202; 80305; 80320; 81001; 82272; 82570; 82607; 82728; 83540; 83550; 83605; 83735; 83880; 83930; 83935; 84145; 84153; 84154; 84156; 84300; 84484; 84540; 85025; 85651; 87040; 87077; 87081; 87088; 87186; 87207; 87811; 93005; 94640; 94760; 96365; 96375; 97110; 97161; 97530; 99285; A4615; C1758; G0378; J0696; J1756; J2270; J2919; J3373; J7030; J7040; J7050; J7512; Q9967

== ENCOUNTER 2024-12-31 08:44 | Emergency (ER) | payer OTHER, MEDICARE, MEDICAID ==
[~2024-12-31] VITALS: Ht 182.9 cm; Wt 73.6 kg
[~2024-12-31 08:44] MED LIST changes: +MEGE400O40 PO; +SPIR50TA5 PO; +TAMS-55 PO; +TRIH2TAB3 PO
--- NOTE | 2024-12-31 09:04 | ELECTROCARDIOGRAPH REPORT ---
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 Salvatore Prather Measurements Intervals [place] Rate: 87 P: 58 OR: 145 QRS: 86 QRSD: 123 T: 53 QT: 382 QTc: 460 Interpretive Statements Sinus rhythm Right bundle branch block Electronically Signed On 01-01-2025 18:48:[address] Salvatore Prather Please click the below link to view image of tracing.
[2024-12-31 09:14] LABS: MEAN PLATELET VOLUME 7.2 FL (7.4-10.4); RED CELL DISTRIBUTION WIDTH 17.2 % (11.5-14.5)
[2024-12-31 09:28] LABS: CREATININE 1.05 MG/DL (0.60-1.10); TOTAL CARBON DIOXIDE 28.8 MMOL/L (24-32); eCRCL 62 ML/MIN; eGFR 69 ML/MIN
--- NOTE | 2024-12-31 09:37 | RADIOLOGY REPORT ---
EXAM: DI CHEST,SINGLE VIEW Indication: CP Technique: Single frontal view of the chest was obtained Comparison: DI CHEST,SINGLE VIEW on DOS: 12/28/24, DI CHEST,SINGLE VIEW on DOS: 12/25/24, DI CHEST,SINGLE VIEW on DOS: 11/14/24, DI CHEST,SINGLE VIEW on DOS: 09/13/24, DI CHEST,SINGLE VIEW on DOS: 09/02/24 FINDINGS: Lines and Tubes: None Lungs: Left lower lung basilar opacity. Pleura: No effusion. No pneumothorax. Cardiomediastinal contours: Unremarkable. Atherosclerotic vascular calcifications of the thoracic aorta are noted. Bones: No acute osseous abnormality. IMPRESSION: Left lower lung basilar opacity.
--- NOTE | 2024-12-31 09:39 | Physician Documentation ---
History of Present Illness Chief Complaint: Flank Pain Stated Complaint: FLANK PAIN Time Seen by MD: 08:49 Primary Medical Doctor: [facility] Mode of Arrival: EMS HPI 74 years old male with history of COPD on 2 L oxygen on baseline from rehab due to back pain and suspected desaturation. Patient discharged from our hospital on 12/29/24, with diagnosis of UTI pneumonia severity exacerbation and T8, L2, L3 mild compression fractures, on last admission urinalysis came back positive. Sensitivity showed Staphylococcus aureus sensitive linezolid and patient discharged home with oral antibiotic linezolid. on Last admission in the CT scan of the abdomen and pelvis thickening of the ascending colon was also found, due to suspicion of malignancy GI was consulted who assessed the patient and due to the absence of current GI symptoms, colonoscopy was recommended as an outpatient. Patient reported he still has back pain and urinary frequency, dysuria and wants to take [place] 10! No fever and no changing in bowel movement or recent fall reported Medication Reconciliation Allergies: Coded Allergies: aspirin (Unverified Allergy, Unknown, 12/31/24) naproxen (Verified Allergy, Unknown, hives, swelling, 12/31/24) Scheduled Atorvastatin Calcium* (Lipitor*), 1 TAB PO HS, (Reported) Docusate Sodium (Colace), 1 CAP PO Q12H, (Reported) Guaifenesin (Mucinex), 1 TAB PO Q12H, (Reported) Lactobacillus Rhamnosus (Culturelle), 1 CAP PO DAILY, (Reported) Levofloxacin (Levofloxacin), 750 MG PO DAILY@11 Linezolid (Linezolid), 600 MG PO Q12H Megestrol Acetate (Megestrol Acetate), 1 ML PO DAILY Metoprolol Tartrate (Lopressor tablet), 25 MG PO BID, (Reported) Mometasone/Formoterol (Dulera 200 Mcg/5 Mcg Inhaler), 2 PUFFS INH Q12H, (Reported) Omeprazole Magnesium (Prilosec Otc), 20 MG PO DAILY, (Reported) Prednisone (Prednisone), 0 PO DAILY Sennosides/Docusate Sodium (Senna-Docusate Sodium Tablet), 2 TAB PO Q12H, (Reported) Spironolactone (Spironolactone), 1 TAB PO DAILY, (Reported) Tamsulosin Hcl* (Flomax*), 1 CAP PO DAILY, (Reported) Tiotropium Points (Spiriva Respimat), 2 PUFFS PO DAILY, (Reported) Trihexyphenidyl Hcl* (Artane*), 1 TAB PO Q12H, (Reported) Scheduled PRN Acetaminophen (Tylenol), 650 MG PO Q4H PRN for pain, (Reported) Albuterol Sulfate (Proair Hfa), 1 PUFFS IH Q4H PRN for SOB or wheezing, (Repo rted) Hydrocodone Bit/Acetaminophen 5/325 MG ([place] 5/325 MG), 1 TAB PO Q4H PRN for pain, (Reported) Hydrocodone Bit/Acetaminophen (Hydrocodone-Apap 10-325 Tablet), 1 TABLET PO Q4H PRN for pain, (Reported) Ipratropium/Albuterol Sulfate (Duoneb 2.5-0.5 Mg/3 Ml Soln), 3 ML IH Q4H PRN for SOB or wheezing, (Reported) Past Medical History Past Medical History: Congestive Heart Failure, COPD, Emphysema, Constipation, UTI, Chronic Back Pain Past Surgical History: no surgical history Patient History: FH: lung cancer GRANDFATHER OR GRANDMOTHER MOTHER FH: throat cancer GRANDFATHER OR GRANDMOTHER Alcohol Use: Occasionally Drug Use: marijuana, methamphetamine Lives with: Other Lives In: Home Review of Systems ROS The history of present illness included a review of system, which yielded relevant positives and negatives Physical Exam Vital Signs: Temperature: 98.0, Heart Rate: 80, Respiratory Rate: 22, BP: 135/77, Pulse Oximetry: 97, Weight: 73.640 Oxygen Flow Rate: 6.0 Physical Exam General: Awake and Alert, mildly agitated, no acute distress HEENT: Conjunctiva pale, Sclera clear, Mucus Membranes moist, difficulty hearing Neck: Supple without masses and tenderness. Resp: Basilar crackle Heart: Regular Rate and rhythm, normal S1 and S2 Abdomen: Soft and non tender, mild tenderness on the left CVA, tenderness on his lower lumbar spine Presence of ventral abdominal hernia easily reducible without signs of strangulation or inflammation. Extremities: No cyanosis,clubbing or edema. Skin: Warm and Dry. Neurological: Speech is clear, alert, and oriented x 4, no gross neurological deficits Progress Results/Orders Results/Orders Orders - ADIBI,KRISTIN, RES Chest,Single View (12/31/24 08:54) Urinalysis, Cult If Indicated (12/31/24 08:54) Completed Orders - KRISTIN TOLBERT RES Chest,Single View (12/31/24 08:54) Electrocardiogram (12/31/24 08:54) Cbc/Diff (12/31/24 08:54) BMP (12/31/24 08:54) Lipase (12/31/24 08:54) CMP (12/31/24 08:54) Vital Signs 12/31/24 12/31/24 08:46 09:00 Temp 98.0 Pulse 80 Resp 22 22 B/P (MAP) 135/77 Pulse Ox 97 O2 Flow Rate 6.0 Laboratory Tests Test 12/31/24 08:58 White Blood Count 12.0 H Red Blood Count 4.44 L Hemoglobin 12.3 L Hematocrit 36.7 L Mean Corpuscular Volume 82.6 Mean Corpuscular Hemoglobin 27.6 Mean Corpuscular Hemoglobin Concent 33.5 Red Cell Distribution Width 17.2 H Platelet Count 331 Mean Platelet Volume 7.2 L Neutrophils (%) (Auto) 66.1 Lymphocytes (%) (Auto) 22.6 Monocytes (%) (Auto) 7.6 Eosinophils (%) (Auto) 3.3 Basophils (%) (Auto) 0.4 Neutrophils # (Auto) 7.9 H Lymphocytes # (Auto) 2.7 Monocytes # (Auto) 0.9 Eosinophils # (Auto) 0.4 Basophils # (Auto) 0.0 CBC Comment Sodium Level 137 Potassium Level 3.6 Chloride Level 103 Carbon Dioxide Level 28.8 Anion Gap 5 L Blood Urea Nitrogen 16 Creatinine 1.05 Estimated GFR/1.73 m2 69 BUN/Creatinine Ratio 15.2 Glucose Level 108 H Calcium Level 8.5 Total Bilirubin 0.2 Aspartate Amino Transf (AST/SGOT) 11 Alanine Aminotransferase (ALT/SGPT) 14 Alkaline Phosphatase 108 Total Protein 7.1 Albumin 2.7 L Globulin 4.4 H Albumin/Globulin Ratio 0.6 L Lipase 27 Chemistry Comments Medical Decision Making Additional information obtaine: old records Findings 74 years old male with history of COPD, pneumonia, UTI MRSA, possible pyelo brought to the ED due to exacerbated back pain and suspected desaturation. Initial diagnosis including but not limited to UTI pyelonephritis, nephrolithiasis, prostatitis COPD exacerbation, pneumonia Differential Dx:Considerations: Constipation, Gastroenteritis, Urinary tract infection, Urolithiasis Departure Disposition: 01 HOME / SELF CARE / HOMELESS Impression: Primary Impression: Community acquired pneumonia Additional Impressions: Chronic back pain Dysuria Condition: Improved Discharge Instructions: Community-Acquired Pneumonia, Adult Referrals: NO PRIMARY CARE PROVIDER (PCP) Education Educated: Patient Educated regarding: diagnosis, treatment, prognosis, need for follow up Additional Comment Seen with PA/UG DESIGNER This is an attending supervisory note for the resident of record. I have personally participated in care of this patient, has been present during critical and/or frances portions of the patient's service, participated in the evaluation, and provided major portion of medical decision-making, independently interpreted imaging and laboratory studies and participated in disposition of this patient. In brief, this is a 74-year-old gentleman with a known history of COPD, brought into us from rehab for ongoing back pain. Evidently he was suspected to have has a desaturation per EMS, however there was no evidence of hypoxia here. The gentleman at the time of our examination denies any new somatic complaints whatsoever. He reports chronic back pain, unchanged, dysuria, unchanged, as well as requests does not provide him with a [place] 10, coffee, donuts. He denies any fever or chills, denies chest pain. Denies any new falls. The gentleman was state at our facility recently and has been discharged just two days ago to the shelter facility on linezolid due to Staphylococcus aureus in his urine. He had thoracic and lumbar minor compression fractures discovered during his recent stay. He has been provided with the pain medicines for it. Physical examination: GENERAL: Awake, alert, oriented, GCS 15, no apparent distress, chronically ill appearing, answers questions, follows commands appropriately. Examined in bed 4. Yelling really loud in the phone. HEENT: Atraumatic, normocephalic, pupils equal, extraocular muscles intact Active gross movements, sclerae anicteric, mucus membranes moist, no stridor. NECK: Midline, no JVD CARDIOVASCULAR: Good skin perfusion without evidence of pallor, mottling. PULMONARY: Nonlabored, symmetric chest rise, no audible wheezing, no accessory muscle use, no respiratory distress, speaking in full sentences. GASTROINTESTINAL: Not distended. NEUROLOGIC: Lucid with normal mental status. Normal facial symmetry. Moves all extremities symmetrically and with purpose. No truncal ataxia. Speech is fluid without evidence of dysarthria or aphasia, no focal deficits appreciated. EXTREMITIES: Acute deformities Skin: warm, dry PSYCHIATRIC: Normal affect, normal insight, normal concentration. Focused exam: [] Differential diagnosis includes but not limited to chronic back pain, COPD exacerbation, dehydration, electrolyte derangement, UTI, pneumonia, occult bacteremia, less likely cardiac etiology. Hemodynamics reviewed. He is not febrile, not tachycardic, no evidence of hypotension respiratory distress. It is important to note that the gentleman is functioning just fine on his baseline 2 L. CBC shows no leukocytosis, no anemia, normal platelets. Chemistry is unremarkable. UA is nondiagnostic for UTI. Repeat chest x-ray was obtained showed left lower lung basilar opacity concerning for new onset pneumonia. Patient is hemodynamically stable for discharge home with follow with their primary care provider. Specific and cautious return precautions provided and discussed with full understanding. Any incidental findings were also discussed and follow up recommendations given. [] All questions answered. Patient/family were able to verbalize back return precautions. Patient/family agree to plan. Copies of imaging and laboratory studies were provided. Signature Scribe Signature: No scribe Attestation: Date: Dec 31, 2024 Time: 11:02 This note accurately reflects clinical decisions, work performed by myself, DO TOMASZ Jaramillo ELAHE, RES Dec 31, 2024 09:39 LUCIE CHUN DO Dec 31, 2024 10:59
[2024-12-31] MEDS: HYDROcodone/acetaminophen 10/325mg tab PO ONE (10:17)
[2024-12-31] MEDS: normal saline 1000ml 1,000 ML IVB ONE (10:23)
[2024-12-31 10:45] LABS: LEUKOCYTE ESTERASE ,URINE NEGATIVE (Neg); NITRITES, URINE NEGATIVE (Neg); OCCULT BLOOD,URINE NEGATIVE (Neg)
[2024-12-31 10:47] LABS: UA COLLECTION TYPE URINAL
[2024-12-31 11:42] VITALS: BP 106/56; PULSE 87; TEMP 98.4; O2SAT 98
[2024-12-31 11:50] VITALS: RESP 16
== END 2024-12-31 13:07 ==
LOC: ER 08:45
DX: J18.9 Pneumonia, unspecified organism (principal); G89.29 Other chronic pain; M54.9 Dorsalgia, unspecified; R30.0 Dysuria; I49.8 Other specified cardiac arrhythmias; F12.90 Cannabis use, unspecified, uncomplicated; F15.90 Other stimulant use, unspecified, uncomplicated; Z88.8 Allergy status to other drugs, medicaments and biological substances; Z88.6 Allergy status to analgesic agent; Z87.440 Personal history of urinary (tract) infections
CPT/HCPCS: 36415; 71045; 80053; 81003; 83690; 85025; 93005; 96360; 99285; J7030